=== PATIENT | female | born 1955 | race Caucasian/White ===

== ENCOUNTER 2020-02-02 11:59 | Emergency (ER) | payer OTHER, SELFPAY ==
--- NOTE | ~2020-02-02 | XR_ITS ---
EXAMINATION: XR tibia fibula LT 2V INDICATION: Left leg pain TECHNIQUE: Two views of the left leg are obtained on three radiographs. COMPARISON: None available FINDINGS: There is severe osteoarthritis of the knee. No acute osseous abnormality is identified. The re is mild soft tissue swelling of the distal leg. IMPRESSION: 1. No acute osseous abnormality. Reviewed, dictated and finalized at location A.
[2020-02-02 12:24] VITALS: BP 172/94; PULSE 77; RESP 16; TEMP 36.7; O2SAT 99
--- NOTE | 2020-02-02 12:25 | PC.NURSE ---
Pt went straight to xray from triage
--- NOTE | 2020-02-02 12:34 | ED.GENADULT ---
HPI - General Adult General Chief complaint: Extremity Injury, Lower Stated complaint: Fall Left leg pain below knee Time Seen by Provider: 02/02/20 12:34 Source: patient Mode of arrival: ambulatory Limitations: no limitations History of Present Illness HPI narrative: 64-year-old female patient presents to the [facility] with complaints of left leg pain. Patient states that close to 2 weeks ago she was getting ready to go and sit down on her couch when her 2 large dogs came and hit her in the leg with her head. Patient states that since then she has been having pain mostly below the left knee. Patient states that at first she was able to walk on it but now as time is gone by it is getting harder and harder to walk on with increasing pain. Patient states she is unable to take NSAIDs but has been taking Tylenol for her pain. Patient states she has been using crutches to get around. And states that she noticed that there is some swelling to the lower leg. Patient states she has been elevating it on a recliner. Patient states that she still is working and does try and elevate her on a small box when at work. Patient does have history of knee injury to that left knee when she was younger and states that she has had ligament issues with that knee in the past. Related Data Home Medications Medication Instructions Recorded Confirmed albuterol sulfate [Ventolin HFA] 2 puff INHALATION Q4-6H 02/02/20 02/02/20 budesonide-formoterol 2 puff INHALATION Q12H 02/02/20 02/02/20 fluticasone furoate-vilanterol 1 inh INHALATION DAILY 02/02/20 02/02/20 [Breo Ellipta] fluticasone propionate [Flonase 1 spray INTRANASAL DAILY 02/02/20 02/02/20 Allergy Relief] montelukast [Singulair] 10 mg PO DAILY 02/02/20 02/02/20 tiotropium bromide [Spiriva 2 puff INHALATION DAILY 02/02/20 02/02/20 Respimat] Allergies Allergy/AdvReac Type Severity Reaction Status Date / Time codeine AdvReac Unknown Nausea Verified 02/02/20 12:48 Review of Systems Review of Systems: Narrative: CONSTITUTIONAL: Denies fever, chills, or sweats. EYES: Denies visual changes, redness, or discharge. ENT: Denies rhinorrhea, congestion, sore throat, or otalgia. CARDIOVASCULAR: Denies chest pain, palpitations, or edema. RESPIRATORY: Denies cough or dyspnea. GASTROINTESTINAL: Denies abdominal pain, nausea, vomiting, or diarrhea. GENITOURINARY: Denies dysuria or hematuria. SKIN: Denies rash or itching. MUSCULOSKELETAL: Denies back pain, joint pain, or myalgia. Positive left tib-fib pain x2 weeks NEUROLOGIC: Denies headache, numbness, or weakness. PSYCHIATRIC: Denies anxiety or depression. [facility] Past Medical History Medical History Encounter for dual-energy x-ray absoptiometry review Hepatitis C antibody test negative Surgical History Surgical History H/O arthroscopy H/O colonoscopy Family History Family History Mother Diabetes mellitus Family history of malignant neoplasm of breast in first degree relative Family history of malignant neoplasm of thyroid Grandparent Diabetes mellitus Cerebrovascular accident Father Family history of elevated blood lipids Family history of coronary artery disease Family history of malignant neoplasm of urinary bladder Social History Social History Smoking status: Never smoker Alcohol intake: current Gender identity (if verbalized by the patient): Female Comments At the time of my signature I agree with nursing past medical history, surgical, social, and family history. There is no relevant family history pertinent to the presenting complaint. Exam Narrative: Exam Narrative: GENERAL: Well-appearing, well-nourished, and in no acute distress. HEAD: Normocephalic, atraumatic. EYES: PERRLA and EOMI. ENT:
== END 2020-02-02 13:25 | disposition home or self-care (01) ==
PROVIDERS: Emergency Provider Nurse Practitioner Family
DX: M79.605 Pain in left leg (principal)
CPT/HCPCS: 73590; 99213; G0463

== ENCOUNTER → 2020-05-09 14:48 | Outpatient (CLI) | payer OTHER, SELFPAY ==
--- NOTE | ~2020-05-09 | MM_ITS ---
EXAMINATION: MM screening [facility] BI w haley HISTORY: Screening mammogram TECHNIQUE: Craniocaudal and mediolateral oblique 3-D tomosynthesis images were obtained and synthetic 2-D images were generated. CAD analysis was submitted and interpreted. COMPARISON: 10/24/2018 diagnostic left digital mammogram and complete left breast ultrasound 10/13/2018, 10/11/2017, 09/21/2016 bilateral digital screening mammogram examinations BREAST PARENCHYMAL COMPOSITION: There are scattered areas of fibroglandular density. FINDINGS: Possible right breast masses including possible 8.5 mm mass in the mid inner right breast. Diagnostic right mammogram and right breast ultrasound examinations are recommended Otherwise there is no evidence of suspicious mass, calcification, or architectural distortion to sugg est malignancy in either breast. There has been no other suspicious interval change. IMPRESSION: 1. Possible right breast masses 2. Diagnostic right mammogram and right breast ultrasound examination are recommended BI-RADS Category 0: Incomplete: Needs additional imaging evaluation. Reviewed, dictated and finalized at location A. IMPRESSION: 1. Possible right breast masses 2. Diagnostic right mammogram and right breast ultrasound examination are recom mended BI-RADS Category 0: Incomplete: Needs additional imaging evaluation.
== END ==
PROVIDERS: Visit Provider Family Medicine
DX: Z12.31 Encounter for screening mammogram for malignant neoplasm of breast (principal); R92.8 Other abnormal and inconclusive findings on diagnostic imaging of breast
CPT/HCPCS: 77063; 77067

== ENCOUNTER → 2020-05-13 07:43 | Outpatient (CLI) | payer OTHER, SELFPAY ==
--- NOTE | ~2020-05-13 | MMUS_ITS ---
EXAMINATION: MM diagnostic mammo unilat RT, US breast RT complete HISTORY: Follow-up right breast asymmetries TECHNIQUE: Additional 3-D tomosynthesis images of the right breast were performed and synthetic 2-D i mages were generated. CAD analysis was submitted and interpreted. High resolution right breast ultras ound was performed. COMPARISON: 05/09/2020 BREAST PARENCHYMAL COMPOSITION: Breast composed of scattered areas of fibroglandular density FINDINGS: MAMMOGRAPHIC FINDINGS: There is a persistent focal asymmetry medially in the right breast at approximately the 3:00 position . There are no suspicious calcifications. ULTRASOUND: Right breast ultrasound: At 3:00, 1 cm from the nipple, there is a 1 cm intramammary lymph node corresponding to the mammograp hic abnormality. At 10:00, 1 cm from the nipple, there is a 5 mm cyst. IMPRESSION: 1. No evidence for malignancy in the right breast. Benign findings. 2. Routine yearly screening mammogram and regular clinical breast examination are recommended. BI-RADS Category 2: Benign finding(s). Reviewed, dictated and finalized at location A. IMPRESSION: 1. No evidence for malignancy in the right breast. Benign findings. 2. Routine yearly screening mammogram and regular clinical breast examination a re recommended. BI-RADS Category 2: Benign finding(s).
== END ==
PROVIDERS: Visit Provider Family Medicine
DX: R92.8 Other abnormal and inconclusive findings on diagnostic imaging of breast (principal)
CPT/HCPCS: 76641; 77065

== ENCOUNTER → 2020-08-05 18:16 | Outpatient (CLI) | payer OTHER, SELFPAY ==
--- NOTE | ~2020-08-05 | XR_ITS ---
XR knee RT 3V 08/05/2020 19:00 Indication: Right knee pain Procedure: 3 views right knee Comparison: No prior studies for comparison. Findings: There is moderate tricompartment osteoarthritis. No fracture, subluxation or dislocation. N o significant joint effusion. Impression: 1: Moderate osteoarthritis of the right knee. Reviewed, dictated and finalized at location A. Impression: 1: Moderate osteoarthritis of the right knee.
== END ==
PROVIDERS: PCP Family Medicine; Visit Provider Family Medicine
DX: M17.11 Unilateral primary osteoarthritis, right knee (principal)
CPT/HCPCS: 73562

== ENCOUNTER 2020-09-19 11:33 | Outpatient (NON) | payer OTHER, SELFPAY ==
[2020-09-19 23:21] LABS: SARS-CoV-2 RNA PCR Positive
== END 2020-09-19 11:34 ==
PROVIDERS: PCP Family Medicine; Visit Provider Family Medicine
DX: U07.1 COVID-19 (principal)
CPT/HCPCS: 87635; C9803; U0003

== ENCOUNTER → 2021-09-19 09:17 | Outpatient (CLI) | payer OTHER, SELFPAY ==
--- NOTE | ~2021-09-19 | MM_ITS ---
EXAMINATION: MM screening [facility] BI w haley HISTORY: Screening mammogram, family history of breast cancer in her mother. TECHNIQUE: Craniocaudal and mediolateral oblique 3-D tomosynthesis images were obtained and synthetic 2-D images were generated. CAD analysis was submitted and interpreted. COMPARISON: 05/13/2020, 05/09/2020, 10/24/2018, 10/13/2018 BREAST PARENCHYMAL COMPOSITION: There are scattered areas of fibroglandular density. FINDINGS: RIGHT BREAST: There is no evidence of suspicious mass, calcification, or architectural distortion to suggest malignancy. There has been no significant interval change. LEFT BREAST: A mass is present in the posterior third of the outer breast 7 cm from the nipple. IMPRESSION: 1. Left breast mass 2. Additional mammographic views and possible breast ultrasound are recommended. BI-RADS Category 0: Incomplete: Needs additional imaging evaluation. Reviewed, dictated and finalized at location A. PER MACHINE OPERATOR IMPRESSION: 1. Left breast mass 2. Additional mammographic views and possible breast ultrasound are recommended . BI-RADS Category 0: Incomplete: Needs additional imaging evaluation.
== END ==
PROVIDERS: PCP Family Medicine; Visit Provider Family Medicine
DX: Z12.31 Encounter for screening mammogram for malignant neoplasm of breast (principal); R92.8 Other abnormal and inconclusive findings on diagnostic imaging of breast
CPT/HCPCS: 77063; 77067

== ENCOUNTER → 2021-09-25 09:11 | Outpatient (CLI) | payer OTHER, SELFPAY ==
--- NOTE | ~2021-09-25 | MMUS_ITS ---
EXAMINATION: MM diagnostic [facility] LT w haley, US breast LT limited HISTORY: Follow-up left breast mass TECHNIQUE: Additional 3-D tomosynthesis images of the left breast were performed and synthetic 2-D im ages were generated. CAD analysis was submitted and interpreted. High resolution Limited left breast ultrasound was performed. COMPARISON: Comparison to multiple prior studies sequentially, with oldest reviewed study dated 11/2017. BREAST PARENCHYMAL COMPOSITION: Breast composed of scattered areas of fibroglandular density. FINDINGS: MAMMOGRAPHIC FINDINGS: There is a mass in the mid outer aspect of the left breast measuring 2.2 cm maximum dimension. There are no suspicious calcifications or architectural distortion. ULTRASOUND: Limited left breast ultrasound: There are multiple left breast cysts, largest corresponding to the ma mmographic finding measuring 2 cm maximum dimension. No suspicious masses to suggest malignancy. IMPRESSION: 1. No evidence for malignancy in the left breast. 2. Routine yearly screening mammogram and regular clinical breast examination are recommended. BI-RADS Category 2: Benign finding(s). Reviewed, dictated and finalized at location A. ER APPRAISER IMPRESSION: 1. No evidence for malignancy in the left breast. 2. Routine yearly screening mammogram and regular clinical breast examination a re recommended. BI-RADS Category 2: Benign finding(s).
== END ==
PROVIDERS: PCP Family Medicine; Visit Provider Family Medicine
DX: N63.20 Unspecified lump in the left breast, unspecified quadrant (principal); R92.8 Other abnormal and inconclusive findings on diagnostic imaging of breast
CPT/HCPCS: 76642; 77061; 77065; G0279

== ENCOUNTER → 2021-10-23 15:09 | Outpatient (CLI) | payer OTHER, SELFPAY ==
--- NOTE | ~2021-10-23 | DEXA_ITS ---
Bone Density Report Name: USAMA MEJIA Age: 66 Sex: Female Ethnicity: White Date of : 1955 Indication: postmenopausal; screening for osteoporosis; parental hip fracture; inflammatory bowel disease; history of glucocorticoids; asthma or emphysema; Referring Provider: Aniyah Bella Study: Bone densitometry was performed. Exam Date: October 23, 2021 Accession number: [id number] Bone Density: Region BMD T-score Z-score Classification AP Spine (L1-L4) 1.010 -0.3 1.4 Normal Femoral Neck (Left) 0.756 -0.8 0.6 Normal Total Hip (Left) 0.903 -0.3 0.9 Normal Femoral Neck (Right) 0.803 -0.4 1.1 Normal Total Hip (Right) 0.933 -0.1 1.1 Normal Total Hip Mean 0.918 -0.2 1.0 Normal World Health Organization criteria for BMD impression classify patients as: Normal (T-score at or above -1.0), Osteopenia (T-score between -1.0 and -2.5), or Osteoporosis (T-score at or below -2.5). 10-year Fracture Risk: FRAX not reported because: All T-scores for Spine Total, Hip Total, Femoral Neck at or above -1.0 Previous Exams: Region Exam Age BMD T-score BMD Change BMD Change Date g/cm2 vs Baseline vs Previous AP Spine(L1-L4) 10/23/2021 66 1.010 -0.3 -0.004 -0.004 09/21/2016 60 1.014 -0.3 Total Hip(Left) 10/23/2021 66 0.903 -0.3 -0.029 -0.029 09/21/2016 60 0.932 -0.1 Total Hip(Right) 10/23/2021 66 0.933 -0.1 -0.044 -0.044 09/21/2016 60 0.977 0.3 *Denotes significance at 95% confidence level, LSC for AP Spine = 0.022 g/cm2, LSC for Total Hip = 0.027 g/cm2 Clinical Information Provided by Patient: Parent has had a hip fracture Has taken Glucocorticoids Has used the following medications: Vitamin D Has the following medical conditions: Asthma or Emphysema, Inflammatory bowel diseases, ulcerative colitis Patient maximum height was 63 Menopause Age: 42 No regular weight bearing exercise Does not regularly consume dairy products Drinks caffeinated beverages Onset of menses at age 17 Number of children 2 Impression: The patient has normal bone mass. The patient has risk factors, including: parental hip fracture, history of glucocorticoid therapy. No significant bone loss was observed. Discussion: BONE DENSITY IS ABOVE THE MINIMUM DESIRABLE LEVEL AT ALL SKELETAL SITES TESTED. This patient?s bone mineral density is above the minimum desirable level (T-score -1.0 or better) at all sites measured. T
== END ==
PROVIDERS: PCP Family Medicine; Visit Provider Family Medicine
DX: Z78.0 Asymptomatic menopausal state (principal)
CPT/HCPCS: 77080

== ENCOUNTER 2021-11-18 08:20 | Outpatient (CLI) | payer OTHER, SELFPAY ==
--- NOTE | 2021-11-18 08:55 | ECG_ITS ---
Measurements Intervals [place] Rate: 72 P: 59 UT: 163 QRS: 16 QRSD: 78 T: 28 QT: 384 QTc: 420 Interpretive Statements SINUS RHYTHM CONSIDER INFERIOR INFARCT, AGE INDETERMINATE ABNORMAL ECG Electronically Signed On 11-18-2021 9:10:23 MUSIC STORE MANAGER by Travon Meza D.O.
[2021-11-18 09:37] LABS: Hematocrit 47.4 % (37.0-47.0); Hemoglobin 14.9 g/dL (12.0-15.0); Mean Corpuscular HGB Conc 31.4 g/dl (32-36); Mean Corpuscular Hemoglobin 29.6 pg (26-34); Mean Platelet Volume 9.9 fl (7.4-10.4); Platelet Count Result 237 k/mm3 (150-375); Red Blood Count 5.04 M/mm3 (4.2-5.4); Red Cell Distribution Width 13.2 % (11.5-14.5); White Blood Count 6.8 K/mm3 (4.5-10.0)
[2021-11-18 09:46] LABS: Alanine Aminotransferase 20 U/L (4-35); Albumin Level 4.4 g/dL (3.5-5.1); Alkaline Phosphatase 62 U/L (38-126); Anion Gap 11 mmol/L (8-16); Aspartate Amino Transferase 25 U/L (14-36); Bilirubin,Total 0.6 mg/dL (0.2-1.3); Blood Urea Nitrogen 19 mg/dL (7-17); Calcium 9.5 mg/dL (8.4-10.2); Carbon Dioxide 26 mmol/L (22-30); Chloride 105 mmol/L (98-107); Estimated Glomerular Filt Rate > 60; Glucose 119 mg/dL (65-110); Potassium 3.8 mmol/L (3.4-5.0); Sodium 142 mmol/L (137-145)
== END 2021-11-18 08:21 | disposition home or self-care (01) ==
PROVIDERS: PCP Family Medicine; Visit Provider Family Medicine
DX: Z01.818 Encounter for other preprocedural examination (principal); R94.31 Abnormal electrocardiogram [ECG] [EKG]
CPT/HCPCS: 36415; 80053; 85027; 93005

== ENCOUNTER 2021-11-20 08:03 | Outpatient (CLI) | payer OTHER, SELFPAY ==
[2021-11-20 10:17] LABS: Basophils Absolute Auto 0.1 K/mm3 (0.0-0.1); Basophils Percent Auto 0.7 % (0.2-1.2); Eosinophils Absolute Auto 0.2 K/mm3 (0-0.3); Eosinophils Percent Auto 2.5 % (0-4.4); Hematocrit 44.1 % (37.0-47.0); Hemoglobin 14.3 g/dL (12.0-15.0); Immature Granulocyte Absolute 0.02 K/mm3 (0.00-0.031); Immature Granulocyte Percent A 0.3 % (0-0.5); Lymphocytes Absolute Auto 1.75 K/mm3 (0.9-3.2); Lymphocytes Percent Auto 25.5 % (18.3-44.2); Mean Corpuscular HGB Conc 32.4 g/dl (32-36); Mean Corpuscular Hemoglobin 29.5 pg (26-34); Mean Corpuscular Volume 91.1 fl (80-100); Mean Platelet Volume 10.2 fl (7.4-10.4); Monocytes Absolute Auto 0.7 K/mm3 (0.1-0.6); Monocytes Percent Auto 10.2 % (2.6-8.5); Neutrophils Absolute Auto 4.2 K/mm3 (1.3-6.7); Neutrophils Percent Auto 60.8 % (45.5-73.1); Platelet Count Result 252 k/mm3 (150-375); Red Blood Count 4.84 M/mm3 (4.2-5.4); Red Cell Distribution Width 12.9 % (11.5-14.5); White Blood Count 6.9 K/mm3 (4.5-10.0)
[2021-11-20 10:54] LABS: Hemoglobin A1C 6.1 % (<5.7)
[2021-11-20 11:25] LABS: Urine Cotinine NEGATIVE
== END 2021-11-20 08:04 | disposition home or self-care (01) ==
LOC: ANHSURGERY 08:11
PROVIDERS: PCP Family Medicine; Visit Provider Orthopaedic Surgery
DX: M17.0 Bilateral primary osteoarthritis of knee (principal); Z01.818 Encounter for other preprocedural examination
CPT/HCPCS: 80307; 83036; 85025; 87070

== ENCOUNTER 2021-12-07 01:41 | Day surgery (SDC) | payer OTHER, SELFPAY ==
--- NOTE | 2021-11-20 08:11 | PC.NURSE ---
Addendum entered by Samina Morales RN 11/20/21 08:58: PT AWARE TO ARRIVE 12/07/21 FOR SURGERY AND NOT ON 11/27/21 Original Note: Report to the Outpatient Waiting Room, entrance under the [facility] located off [facility], at time _0600_ on date _11/27/21_. OR Time: _0730__. - You will be asked a series of questions to screen for COVID 19 for your protection. - A mask is required within the hospital. - No visitors are allowed at this time. Preoperative COVID Testing Requirements: NONE Patients may have clear liquids (water, carbonated beverages, clear teas, apple juice) until 3 hours prior to surgery (0430 AM) with a maximum of 20 ounces. - No food from midnight until time of surgery Take the following medications with a SIP of water the morning of surgery: _INHALER, NASAL SPRAY, TYLENOL IF NEEDED FOR PAIN__ Medications to discontinue per DR. DURBIN'S INSTRUCTIONS - _ASPIRIN 7 DAYS PRIOR TO SURGERY, LAST DOSE TO BE TAKEN ON 11/29/21_ Medications to discontinue per ANESTHESIA - _ALL VITAMINS AND SUPPLEMENTS 3 DAYS PRIOR TO SURGERY, LAST DOSE TO BE TAKEN ON12/03/21 Please no make-up, nail omani, hairspray, perfume, deodorant, or body powder the day of surgery. No jewelry (including any body piercings) or valuables the day of surgery, leave them at home. Please take a shower or bath the night before, or the morning of, surgery with an antibacterial soap. Wear comfortable, loose fitting clothing. - Jewelry must be removed prior to entering the operating room. Rings and piercings that are not removed may be cut off. - The hospital will not accept responsibility for valuables. - Please leave all valuables, including medications, at home the day of surgery. If you are going home after surgery, a licensed light truck driver must drive you home. - NO public transportation without another adult. - We recommend that an adult stay with you for 24 hours following discharge. - We also recommend that you do not drive, make important decision, drink alcoholic beverages, or take any drugs that were not prescribed by your health care provider for at least 24 hours after your discharge time. Follow any additional instructions given to you from DR. DURBIN. - TOTAL JOINT CLASS 11/25/21 [facility] @ 1000, USE MAIN ENTRANCE - LOWER LEVEL Instructions given to ____PT and asked if any additional questions and then verbalized understanding. Patient advised to call surgeon office or pre surgery nurse liaisonNUPUR [phone] if any additional questions.
[2021-11-20 08:18] VITALS: BP 142/78; PULSE 70; RESP 20; TEMP 37.1; O2SAT 98; BMI 39.2
--- NOTE | 2021-11-20 08:59 | PC.NURSE ---
PT BMI 39.2 - INFORMED PT OF BMI NEEDING TO BE BELOW 40 FOR TOTAL JOINT ARTHROPLASTY, DISCUSSED DIET/ACTIVITY AND INFORMED PT THAT SHE WILL BE WEIGHTED DAY OF SURGERY - UNDERSTANDING VOICED
--- NOTE | 2021-12-04 12:49 | PM.IMHP ---
H&P: HPI History of Present Illness Date/Time: 12/04/21 12:49 66-year-old female patient of Dr. Bella who presents today for right total knee arthroplasty and a cortisone injection into her left knee. She has been having pain in both her knees for years. She has severe medial compartment osteoarthritis in the right knee and severe lateral compartment arthritis in the left. At this point her right knee is bothering her more. She has had cortisone injections in both her knees in the past with minimal improvement. Last injection was over 5 months ago. Patient has reached a point she is having rather severe pain on a regular basis. It is keeping her from daily activities. She feels this point she would like proceed with total knee arthroplasty rather continue nonsurgical treatment. Chief Complaint: Bilateral knee DJD Review of Systems Review of Systems: All systems reviewed & are unremarkable except as noted in HPI and below PMFSH Past Medical History Medical History COVID-19 Encounter for dual-energy x-ray absoptiometry review Hepatitis C antibody test negative Left knee pain Pain in left knee Pain in right knee Surgical History Surgical History H/O arthroscopy (~2011) left shoulder H/O colonoscopy Family History Family History Mother Diabetes mellitus Family history of malignant neoplasm of breast in first degree relative Family history of malignant neoplasm of thyroid Grandparent Diabetes mellitus Cerebrovascular accident Father Family history of elevated blood lipids Family history of coronary artery disease Family history of malignant neoplasm of urinary bladder Social History Social History Smoking status: Never smoker Second hand tobacco smoke exposure: No Additional smoking assessment comments: PT DENIES ALL FORMS OF TOBACCO USE Alcohol intake: current Alcohol use details: STATES VERY RARELY - 10 DRINKS/YEAR MAYBE Substance use: never Substance use type: does not use Gender identity (if verbalized by the patient): Female Spiritual care concerns: No Meds Home Medications and Allergies Home Medications Medication Instructions Recorded Confirmed Type albuterol sulfate [Ventolin HFA] 2 puff INHALATION Q4-6H 02/02/20 11/27/21 History acetaminophen [Tylenol Extra 1,000 mg PO TID PRN 11/20/21 11/27/21 History Strength] aspirin 81 mg QAM 11/20/21 11/27/21 History fexofenadine [Shakira Allergy] 180 mg PO QAM 11/20/21 11/27/21 History fluticasone furoate-vilanterol 1 inh INHALATION QAM 11/20/21 11/27/21 History [Breo Ellipta] fluticasone propionate [Flonase 1 spray INTRANASAL QAM 11/20/21 11/27/21 History Allergy Relief] mesalamine [Lialda] 4.8 g PO QAM 11/20/21 11/27/21 History montelukast 10 mg QAM 11/20/21 11/27/21 History multivitamin [Hair,Nails and Skin 1 tablet PO QAM 11/20/21 11/27/21 History Vitamin] multivitamin [Multi-Vitamin] 1 tablet PO DAILY 11/20/21 11/27/21 History omeprazole 20 mg PO DAILY 11/20/21 11/27/21 History pravastatin 10 mg HS 11/20/21 11/27/21 History vitamin [id number] acid 4 tablet PO QAM 11/20/21 11/27/21 History zinc 50 mg PO QAM 11/20/21 11/27/21 History budesonide 3 mg 3 mg PO DAILY #60 ea 11/27/21 11/27/21 Rx capsule,delayed,extended release mesalamine 1,000 mg rectal 1 g RECTAL QHS PRN 28 Days #30 ea 11/27/21 11/27/21 Rx suppository Allergies Allergy/AdvReac Type Severity Reaction Status Date / Time codeine AdvReac Unknown Nausea Verified 11/27/21 10:47 Exam Narrative: 66-year-old female alert pleasant. She is 5 ft 3 and 222 lb. Her BMI is 39. her right knee range of motion is from 12-90 degrees. There is trace effusion right knee. Moderate medial joint line tenderness and lateral joint line tenderne
[2021-12-07] VITALS (16 sets, daily range): BP systolic 122–147; BP diastolic 67–85; PULSE 71–90; RESP 12–20; TEMP 36–36.9; O2SAT 95–100
--- NOTE | ~2021-12-07 | XR_ITS ---
EXAMINATION: XR knee RT 2V DATE: 12/07/2021 11:46 INDICATION: Right knee arthroplasty. Postop. TECHNIQUE: 2 views of right knee were obtained. COMPARISON: Right knee radiographs 08/05/2020 FINDINGS: There is a total right knee arthroplasty with patellar resurfacing in near-anatomic alignme nt. No fracture. There is gas in the knee joint and soft tissues, consistent with recent surgery. IMPRESSION: 1. Total right knee arthroplasty in near-anatomic alignment. Reviewed, dictated and finalized at location A. T CUTTING OPERATOR
[2021-12-07] MEDS: ACETAMINOPHEN 500 MG TABLET 1000 MG PO ×3 (06:34→21:00)
--- NOTE | 2021-12-07 06:48 | WPDANESEPPF ---
Anes - Initial Pre Proc Eval Procedure: Operation Date: 12/07/21 07:30 Proposed Procedures p Right Total Knee Arthroplasty, Cortisone Injection Left Knee - Lalo Rangel MD Date/Time: 12/07/21 06:48 Surgeon: Lalo Rangel MD Pre Op Diagnosis: OA right knee, OA left knee Patient Data Age: 66 Gender: F Height: 1.6 m Weight: 100.3 kg Last Vital Signs Temp 37.1 C 11/20/21 08:18 Pulse 70 11/20/21 08:18 Resp 20 11/20/21 08:18 BP 142/78 H 11/20/21 08:18 Pulse Ox 98 11/20/21 08:18 Allergies Allergy/AdvReac Type Severity Reaction Status Date / Time codeine AdvReac Unknown Nausea Verified 11/27/21 10:47 Home Medications Medication Instructions Recorded Confirmed Type albuterol sulfate [Ventolin HFA] 2 puff INHALATION Q4-6H 02/02/20 12/07/21 History acetaminophen [Tylenol Extra 1,000 mg PO TID PRN 11/20/21 12/07/21 History Strength] aspirin 81 mg QAM 11/20/21 12/07/21 History fexofenadine [Shakira Allergy] 180 mg PO QAM 11/20/21 12/07/21 History fluticasone furoate-vilanterol 1 inh INHALATION QAM 11/20/21 12/07/21 History [Breo Ellipta] fluticasone propionate [Flonase 1 spray INTRANASAL QAM 11/20/21 12/07/21 History Allergy Relief] mesalamine [Lialda] 4.8 g PO QAM 11/20/21 12/07/21 History montelukast 10 mg QAM 11/20/21 12/07/21 History multivitamin [Hair,Nails and Skin 1 tablet PO QAM 11/20/21 12/07/21 History Vitamin] multivitamin [Multi-Vitamin] 1 tablet PO DAILY 11/20/21 11/27/21 History omeprazole 20 mg PO DAILY 11/20/21 12/07/21 History pravastatin 10 mg HS 11/20/21 12/07/21 History vitamin [id number] acid 4 tablet PO QAM 11/20/21 12/07/21 History zinc 50 mg PO QAM 11/20/21 12/07/21 History budesonide 3 mg 3 mg PO DAILY #60 ea 11/27/21 12/07/21 Rx capsule,delayed,extended release mesalamine 1,000 mg rectal 1 g RECTAL QHS PRN 28 Days #30 ea 11/27/21 12/07/21 Rx suppository Patient hx anesthesia problems: none Family hx anesthesia problems: none Results Review: All pre-operative results and documents have been reviewed as part of the pre-operative evaluation. [facility] Past Medical History Medical History COVID-19 Encounter for dual-energy x-ray absoptiometry review Hepatitis C antibody test negative Left knee pain Pain in left knee Pain in right knee Surgical History Surgical History H/O arthroscopy (~2011) left shoulder H/O colonoscopy Family History Family History Mother Diabetes mellitus Family history of malignant neoplasm of breast in first degree relative Family history of malignant neoplasm of thyroid Grandparent Diabetes mellitus Cerebrovascular accident Father Family history of elevated blood lipids Family history of coronary artery disease Family history of malignant neoplasm of urinary bladder Social History Social History Smoking status: Never smoker Second hand tobacco smoke exposure: No Additional smoking assessment comments: PT DENIES ALL FORMS OF TOBACCO USE Alcohol intake: current Alcohol use details: STATES VERY RARELY - 10 DRINKS/YEAR MAYBE Substance use: never Substance use type: does not use Living arrangements: with family Gender identity (if verbalized by the patient): Female Spiritual care concerns: No Anes - Eval Final PreProcedure Day of Procedure 12/07/21 06:48 Patient weight: obese Heart: regular rate and rhythm Lungs: clear to auscultation and normal air movement Airway: Mallampati scale class II Neurological: alert and oriented Last oral intake: >/= 8 hours ASA classification: III Emergent: no Anesthetic plan: proceed Anesthesia type and monitoring: general ETT and standard monitoring Results Review: All pre-operative results and documents have been reviewed as part of th
[2021-12-07] MEDS: TRANEXAMIC ACID 1,000MG/ISO100 1,000 MG/100 ML BAG 200 MG IVPB (06:51)
[2021-12-07] MEDS: LACTATED RINGERS 1,000 ML 30 ML IV CONT ×3 (07:04→12:22)
--- NOTE | 2021-12-07 07:18 | WPDHPUPDATE1 ---
History and Physical Update Update Date/Time: 12/07/21 07:18 History and Physical has been reviewed, including an updated exam of the patient. There are NO changes in the patient's condition. Risks, benefits, and alternatives have been discussed and questions answered. Patient agrees to proceed with procedure.
[2021-12-07] MEDS: ceFAZolin 2 GM/D5W 50 ML 2 GM/50 ML BAG IVPB (07:41)
[2021-12-07] MEDS: GENTAMICIN BONE CEMENT REFOBACIN 1 EACH TOPICAL (08:15)
[2021-12-07] MEDS: ceFAZolin SODIUM 1 GM VIAL 3 GM IRRIGATION (08:16)
[2021-12-07] MEDS: TRANEXAMIC ACID 1,000 MG/10 ML AMPUL 1000 MG TOPICAL (10:13)
[2021-12-07] MEDS: ceFAZolin SODIUM 1 GM VIAL IV PUSH (10:35)
--- NOTE | 2021-12-07 11:30 | W.PM.PROC2 ---
Procedure Note - Detailed Date of Procedure 12/07/21 Pre-op Diagnosis OA right knee, OA left knee, obesity Post-op Diagnosis same Procedure Performed Cortisone injection left knee right total knee arthroplasty Surgeon Lalo Rangel MD [employer] Anesthesia general Description of Procedure Patient was brought to the operating room and general anesthesia was administered. She received 2 g of Ancef weight based vancomycin what and 1 g of tranexamic acid preoperatively. The left knee was prepped with ChloraPrep and 80 mg of Kenalog and 3 cc 1% lidocaine were injected into the left knee without difficulty. The right knee was prepped with DuraPrep draped covered with Ioban limb was exsanguinated tourniquet elevated to 300 mmHg. A 7 in longitudinal midline incision was used. She had a very low patella and therefore a standard parapatellar arthrotomy was performed. The articular cartilage on the patella was quite adequate for non resurfacing. Suprapatellar and infrapatellar fat pads were excised a quadriceps synovectomy carried out. A guide kari was inserted on the femoral canal after aspiration of canal contents used the 5 degree valgus cutting bushing 9 mm of bone removed the distal femur. She did have a 10 degree flexion contracture under anesthesia preoperatively and bent to about 100?. Next the tibial plateau was cut making a skim cut across the low points of the medial lateral tibial plateaus posteriorly. This was made perpendicular to the axis of the tibia. The bone quality in the lateral plateau anterior aspect the medial plateau was a little bit diminished. Miss Koul remnants were excised the PCL released. At 90? of flexion the medial side was a tight 8 mm the lateral side 10 mm. The femoral sizing guide was set at 3? of external rotation which did match Whitesides line and posterior referencing holes were placed. The size 57.5 cutting block vanguard was applied the femur was seemed to be the best with but this was going to notch. Size 60 was applied and the anterior cut was flush with the anterior cortex. Posterior and chamfer cuts were made. We were able to slide the 10 mm CR insert in place at 90? confirming alignment of the tibial cut. This was very tight though at 90. Extension was extremely tight. Therefore we elected to remove about a mm and half more of tibial plateau bone and the distal femur was recut removing additional 2 mm of bone and chamfer cuts revisit. The tibia was sized to a 63, the smallest tibial tray size. There was no way to fit the 67 trial without more than a mm of overhang laterally. This 63 was position at proper rotation and punched. As the bone quality was somewhat poor and bone size very small and with a BMI of 38.9, I felt it would be best to use an 80 mm stem extension and we punched for the 80 mm stem 10 mm diameter punch with full seating. We removed this and placed the trial of the same. The 10 mm insert was placed followed by the 60 femur. This had a mm of play both medially and laterally at 90? with a Gao elevator and had about 2 or 3 mm total of anterior drawer to had a very nice feel and was balanced medial to lateral also. We stayed still lacked about 3? of extension. I already performed a posterior capsule release. That was done the center of the posterior femur. Therefore, an additional mm of bone was removed from the distal femur using the 3 mm slot and chamfers revisited. The trial was applied and the small amount of residual posterior condylar bone was removed. We again trialed with the 10 insert this time the knee came out to full extension with a negative bounce with 2 mm lateral opening 1-2 mm medial opening in full extension and normal stability throughout range of motion. I assessed patellar tracking and I did not detect any catching on the edge of the intercondylar cut out the femur at this time but the patella baja was notable. Lug holes in the femur were drilled and step
[2021-12-07] MEDS: fentaNYL CITRATE INJ (*CRX) 100 MCG/2 ML VIAL 25 MCG IV PUSH ×8 (11:56→12:40)
[2021-12-07] MEDS: HYDROmorphone HCL INJ (*CRX) 1 MG/ML SYR 0.5 MG IV PUSH ×3 (12:49→13:13)
[2021-12-07] MEDS: SODIUM CHLORIDE 0.9% IV 1,000 ML 125 ML IV CONT (15:16)
[2021-12-07] MEDS: oxyCODONE HCL (*CRX) 5 MG TAB IR PO ×4 (15:18→22:02)
[2021-12-07] MEDS: SENNA/DOCUSATE SODIUM TABLET 2 TAB PO (16:28)
[2021-12-07] MEDS: ONDANSETRON INJ 4 MG/2 ML VIAL IV PUSH (18:23)
[2021-12-07] MEDS: diphenhydrAMINE HCl INJ 50 MG/ML VIAL 25 MG IV PUSH (19:43)
[2021-12-07] MEDS: MORPHINE SULFATE (*CRX) 2 MG/ML INJ IV PUSH (19:57)
[2021-12-07] MEDS: APIXABAN 2.5 MG TABLET PO (21:00)
[2021-12-07] MEDS: FAMOTIDINE 20 MG TABLET PO (21:00)
[2021-12-07] MEDS: PRAVASTATIN SODIUM 10 MG TABLET BY MOUTH (21:01)
[2021-12-08] MEDS: oxyCODONE HCL (*CRX) 5 MG TAB IR PO ×5 (00:46→09:36)
[2021-12-08] MEDS: ACETAMINOPHEN 500 MG TABLET 1000 MG PO ×2 (00:46→07:47)
[2021-12-08 04:14] VITALS: BP 127/70; PULSE 82; RESP 20; TEMP 35.9; O2SAT 93
[2021-12-08 05:24] LABS: Basophils Percent Auto 0.1 % (0.2-1.2); Hematocrit 37.3 % (37.0-47.0); Hemoglobin 12.1 g/dL (12.0-15.0); Immature Granulocyte Absolute 0.07 K/mm3 (0.00-0.031); Immature Granulocyte Percent A 0.5 % (0-0.5); Lymphocytes Absolute Auto 0.66 K/mm3 (0.9-3.2); Lymphocytes Percent Auto 5.2 % (18.3-44.2); Mean Corpuscular HGB Conc 32.4 g/dl (32-36); Mean Corpuscular Hemoglobin 29.3 pg (26-34); Mean Corpuscular Volume 90.3 fl (80-100); Mean Platelet Volume 10.2 fl (7.4-10.4); Monocytes Absolute Auto 1.2 K/mm3 (0.1-0.6); Monocytes Percent Auto 9.5 % (2.6-8.5); Neutrophils Absolute Auto 10.8 K/mm3 (1.3-6.7); Neutrophils Percent Auto 84.7 % (45.5-73.1); Platelet Count Result 187 k/mm3 (150-375); Red Blood Count 4.13 M/mm3 (4.2-5.4); Red Cell Distribution Width 13.1 % (11.5-14.5); White Blood Count 12.8 K/mm3 (4.5-10.0)
[2021-12-08 05:36] LABS: Anion Gap 7 mmol/L (8-16); Blood Urea Nitrogen 11 mg/dL (7-17); Calcium 8.8 mg/dL (8.4-10.2); Carbon Dioxide 26 mmol/L (22-30); Chloride 103 mmol/L (98-107); Estimated CRCL calculation 79 ml/min; Estimated Glomerular Filt Rate > 60; Glucose 150 mg/dL (65-110); Potassium 4.4 mmol/L (3.4-5.0); Sodium 136 mmol/L (137-145)
--- NOTE | 2021-12-08 06:36 | PM.PNORT ---
Subjective Subjective Date/Time Seen: 12/08/21 06:36 Postop day 1 patient is alert. She had quite a bit of pain yesterday afternoon and overnight. She did require 1 dose of morphine at this point pain is under control p.o. pain meds. She was up walking with therapy yesterday and walked multiple times to the restroom overall doing well with that. She is afebrile vital signs are stable. Dressing dry neurovascularly she is intact. Plan to discharge home later this today after she works with physical therapy. Objective Data Vital Signs Vital Signs: Vital Signs - 24 hr 12/07/21 07:00 12/07/21 11:46 12/07/21 12:00 Temperature 36.9 C 36.3 C L Pulse Rate 71 90 85 Respiratory Rate 16 12 12 Blood Pressure 131/78 147/78 H 132/78 Pulse Oximetry 99 99 95 12/07/21 12:15 12/07/21 12:30 12/07/21 12:45 Temperature Pulse Rate 81 79 76 Respiratory Rate 18 16 16 Blood Pressure 135/73 135/82 138/71 Pulse Oximetry 96 100 100 12/07/21 13:00 12/07/21 13:15 12/07/21 13:30 Temperature Pulse Rate 78 76 76 Respiratory Rate 16 16 16 Blood Pressure 133/71 122/68 129/67 Pulse Oximetry 100 100 95 12/07/21 13:45 12/07/21 14:05 12/07/21 14:20 Temperature 36.7 C 36.6 C 36.9 C Pulse Rate 83 83 74 Respiratory Rate 16 16 16 Blood Pressure 123/78 137/85 141/75 H Pulse Oximetry 98 98 99 12/07/21 14:50 12/07/21 15:50 12/07/21 19:30 Temperature 36.8 C 36.6 C 36.0 C L Pulse Rate 72 80 79 Respiratory Rate 14 16 20 Blood Pressure 134/82 124/76 144/78 H Pulse Oximetry 98 95 98 12/07/21 22:00 12/08/21 04:14 Temperature 36.0 C L 35.9 C L Pulse Rate 79 82 Respiratory Rate 20 20 Blood Pressure 144/78 H 127/70 Pulse Oximetry 98 93 Intake/Output Intake/Output: Intake & Output 12/05/21 12/06/21 12/07/21 12/08/21 23:59 23:59 23:59 23:59 Intake Total 1720 390 Output Total 1400 Balance 1720 -1010 Meds/Results Medications: Active Medications Generic Name Dose Route Start Last Admin Trade Name Freq PRN Reason Stop Dose Admin Acetaminophen 1,000 mg 12/07/21 13:48 12/08/21 00:46 Acetaminophen 500 Mg Tablet PO 1,000 mg Q6H ANA Administration Albuterol 2 puff 12/07/21 14:16 Albuterol Sulfate (*Sp) Aerosol 1 Puff INHALATION Q4-6H PRN Dyspnea Apixaban 2.5 mg 12/07/21 21:00 12/07/21 21:00 Apixaban 2.5 Mg Tablet PO 12/19/21 09:01 2.5 mg Q12HR ANA Administration Budesonide 3 mg 12/08/21 09:00 Budesonide 3 Mg Cap.Sr.24h PO DAILY ANA Cephalexin HCl 500 mg 12/08/21 10:00 Cephalexin 500 Mg Capsule PO Q6HR ANA Cyanocobalamin 10,000 mcg 12/08/21 09:00 Cyanocobalamin 1,000 Mcg Tablet PO QAM ANA Cyclobenzaprine HCl 10 mg 12/07/21 19:35 Cyclobenzaprine Hcl 10 Mg Tablet PO Q8H PRN Muscle Spasm Diphenhydramine HCl 25 mg 12/07/21 13:48 12/07/21 19:43 Diphenhydramine Hcl Inj 50 Mg/Ml Vial IV PUSH 25 mg Q6H PRN Administration Itching Famotidine 20 mg 12/07/21 21:00 12/07/21 21:00 Famotidine 20 Mg Tablet PO 20 mg Q12HR ANA Administration Fluticasone Propionate 1 spray 12/08/21 09:00 Fluticasone Propionate 0.05% Na Spr 16 Gm Btl (*Bkc) NASAL QAM ANA Folic Acid 1.6 mg 12/08/21 09:00 Folic Acid 0.4 Mg Tablet PO QAM ANA Vancomycin HCl 1,000 mg in 250 mls @ 250 mls/hr 12/07/21 19:00 12/08/21 06:18 Vancomycin 1,000 Mg/D5w 250 Ml IVPB 12/08/21 18:59 250 mls/hr Q12H ANA Administration Cefazolin Sodium 1 gm in 50 mls @ 100 mls/hr 12/07/21 15:00 12/08/21 05:50 Ancef 1 Gm/D5w 50 Ml Pm IVPB 12/08/21 07:29 100 mls/hr Q8H ANA Administration Loratadine 10 mg 12/08/21 09:00 Loratadine 10 Mg Tablet PO QAM ANA Magnesium Hydroxide 30 ml 12/07/21 13:48 Magnesium Hydroxide Susp 30 Ml Udc PO BID PRN Constipation Miscellaneous Information 1 each 12/07/21 14:25 Lialda Nonformulary. Can Patient Use From Home? XX 01/06/22 14:24 CLARIFY ANA Leroy
--- NOTE | 2021-12-08 06:44 | PM.DS ---
DS: Admitting Diagnosis Discharge Date 12/08 Admitting Diagnosis Bilateral knee DJD DS: Summary Hospital Course Hospital Course: Stable Time Spent with Patient Time attestation: Total time spent providing and/or coordinating discharge services: 66-year-old female who underwent right total knee arthroplasty with cortisone injection in the left knee on 12/07. Procedure any complications postoperatively she has been afebrile vital signs have been stable neurovascularly she is intact her dressing is dry, she has a Mepilex dressing over the knee. She had quite a bit of pain the night after surgery and into the later evening. She did require 1 dose of morphine along with her p.o. pain meds and the morning of postop day 1 her pain is well controlled. She did have some nausea after general anesthesia as well which has improved. She had no bouts of vomiting. She was up walking with physical therapy the day of surgery and getting around well. We will plan on discharging her home on 12/08. She is on 6 week course of Eliquis due to her history of factor 5 Leiden deficiency. We are not using Celebrex on her. She is on scheduled Tylenol oxycodone mg. She is also going home on 10 day course of Keflex due to her increased BMI. She also going home on Senokot and MiraLax. Patient was advised keep leg elevated at home to prevent swelling but do her exercises on a regular basis. She had a very stiff knee preoperatively and it is going to take more work on her part postoperatively. She has outpatient therapy starting on . She was advised any questions or concerns once he goes home she is to call the office otherwise we will see her at her appointment date. DS: Data Data Completed and Pending Labs on day of discharge: Labs from last 24 hours 12/08/21 12/08/21 12/07/21 04:58 04:58 06:33 WBC 12.8 H RBC 4.13 L Hgb 12.1 Hct 37.3 MCV 90.3 MCH 29.3 MCHC 32.4 RDW 13.1 Plt Count 187 MPV 10.2 Immature Gran % (Auto) 0.5 Neut % (Auto) 84.7 H Lymph % (Auto) 5.2 L [place] % (Auto) 9.5 H Eos % (Auto) 0.0 Baso % (Auto) 0.1 L Lymph # (Auto) 0.66 L [place] # (Auto) 1.2 H Eos # (Auto) 0.0 Baso # (Auto) 0.0 Abs Immat Gran (auto) 0.07 H Absolute Neuts (auto) 10.8 H Absolute Nucleated RBC 0.0 Nucleated RBC % 0.0 Sodium 136 L Potassium 4.4 Chloride 103 Carbon Dioxide 26 Anion Gap 7 L BUN 11 D Creatinine 0.70 Estim Creat Clear Calc 79 Estimated GFR > 60 Glucose 150 H Calcium 8.8 Blood Type A Negative Antibody Screen Negative Discharge Plan Discharge Patient Disposition: Home, Self-Care Discharge Instructions: LALO RANGEL M.D [facility] [address] [place] [address] POST-OPERATIVE DISCHARGE INSTRUCTIONS TOTAL KNEE ARTHROPLASTY 1. When resting, lie on back with leg elevated above hear to minimize swelling. Significant swelling could indicate a blood clot and if this occurs call the office (or go to the ER) to have a venous ultrasound. 2. Do exercise 5 times a day. 3. Do not sit with leg down except for meals. 4. Wound Care: Nursing will give additional dressings at discharge. Patient to change dressing at home 1 week from surgery, then maintain until seen in office. 5. May shower with dressing in place. . Patient Instructions: Apixaban (By mouth), Precautions after Total Joint Replacement Surgery (GEN), Knee Replacement (GEN) Follow-up/Referrals: Lalo Rangel MD [Physician] - Keep Reg. Scheduled Appt. Discharge Medications: New polyethylene glycol 3350 [Miralax] 17 gram Powder In Packet 17 g PO QAM Qty: 30 RF: 0 sennosides-docusate sodium [Senokot-S] 8.6-50 mg Tablet 2 tab PO BID Qty: 60 RF: 0 acetaminophen 500 mg Tablet 1,000 mg PO Q6H Qty: 90 RF: 0 cephalexin 500 mg Capsule 500 mg PO Q6HR Qty: 40 RF: 0
[2021-12-08] MEDS: SENNA/DOCUSATE SODIUM TABLET 2 TAB PO (08:19)
[2021-12-08] MEDS: LORATADINE 10 MG TABLET PO (08:20)
[2021-12-08] MEDS: APIXABAN 2.5 MG TABLET PO (08:20)
[2021-12-08] MEDS: MONTELUKAST SODIUM 10 MG TABLET PO (08:20)
[2021-12-08] MEDS: FLUTICASONE PROPIONATE 0.05% NA SPR 16 GM BTL (*BKC) 1 SPRAY NASAL (08:20)
[2021-12-08] MEDS: FAMOTIDINE 20 MG TABLET PO (08:20)
[2021-12-08] MEDS: BUDESONIDE 3 MG CAP.SR.24H PO (08:20)
[2021-12-08] MEDS: polyethylene glycoL 3350 17 GM POWD.PACK PO (08:22)
[2021-12-08] MEDS: FOLIC ACID 0.4 MG TABLET 1.6 MG PO (09:13)
[2021-12-08] MEDS: CYANOCOBALAMIN 1,000 MCG TABLET 10000 MCG PO (09:14)
--- NOTE | 2021-12-08 09:22 | WPDANESPN ---
Anes - Prog Note Post-Op Date/Time: 12/08/21 09:22 Cardiovascular status: normal Respiratory status: normal Airway patency: baseline Mental status: baseline Post-Op hydration status: normal Vital Signs: Last Vital Signs Temp 96.7 F L 12/08/21 04:14 Pulse 82 12/08/21 04:14 Resp 20 12/08/21 04:14 BP 127/70 12/08/21 04:14 Pulse Ox 93 12/08/21 04:14 Pain Score (VAS): 10/19 I/O: Intake & Output 12/07/21 12/08/21 12/08/21 23:59 07:59 15:59 Intake Total 720 440 360 Output Total 1400 Balance 720 -960 360 Laboratory Tests 12/08/21 04:58 12/08/21 04:58 12/08/21 12/08/21 04:58 04:58 WBC 12.8 H RBC 4.13 L Hgb 12.1 Hct 37.3 MCV 90.3 MCH 29.3 MCHC 32.4 RDW 13.1 Plt Count 187 MPV 10.2 Immature Gran % (Auto) 0.5 Neut % (Auto) 84.7 H Lymph % (Auto) 5.2 L [place] % (Auto) 9.5 H Eos % (Auto) 0.0 Baso % (Auto) 0.1 L Lymph # (Auto) 0.66 L [place] # (Auto) 1.2 H Eos # (Auto) 0.0 Baso # (Auto) 0.0 Abs Immat Gran (auto) 0.07 H Absolute Neuts (auto) 10.8 H Absolute Nucleated RBC 0.0 Nucleated RBC % 0.0 Sodium 136 L Potassium 4.4 Chloride 103 Carbon Dioxide 26 Anion Gap 7 L BUN 11 D Creatinine 0.70 Estim Creat Clear Calc 79 Estimated GFR > 60 Glucose 150 H Calcium 8.8 Post-procedural complaints: none Patient Feedback: Patient satisfied with anesthetic care.
[2021-12-08] MEDS: CYCLOBENZAPRINE HCL 10 MG TABLET PO (09:36)
[2021-12-08] MEDS: CEPHALEXIN 500 MG CAPSULE PO (11:26)
== END 2021-12-08 11:30 | disposition home or self-care (01) ==
LOC: ANHSURGERY 06:01 → ANH2MED 13:53
PROVIDERS: Physician Assistant Surgical; PCP Family Medicine; Visit Provider Orthopaedic Surgery
PROC: (CPT 27447; principal; 2021-12-07 07:30)
DX: M17.0 Bilateral primary osteoarthritis of knee (principal); D68.51 Activated protein C resistance; Z79.51 Long term (current) use of inhaled steroids; Z79.82 Long term (current) use of aspirin; E66.9 Obesity, unspecified; Z68.38 Body mass index [BMI] 38.0-38.9, adult
CPT/HCPCS: 27447; 20610; 36415; 73560; 80048; 80053; 80307; 83036; 85025; 85027; 86850; 86900; 86901; 87070; 93005; 94640; 97110; 97116; 97161; 97165; 97530; 97535; A9270; C1713; C1776; J0171; J0690; J1040; J1100; J1170; J1200; J2250; J2270; J2405; J2704; J2795; J3010; J3370; J7030; J7120

== ENCOUNTER 2022-02-16 | Day surgery (SDC) | payer OTHER, SELFPAY ==
[2022-01-28 12:55] VITALS: BMI 37.0
[2022-02-16 06:20] VITALS: BP 131/91; PULSE 82; RESP 18; TEMP 36.6; O2SAT 98; BMI 37.4
[2022-02-16] MEDS: LACTATED RINGERS 1,000 ML 150 ML IV CONT (06:43)
[2022-02-16] MEDS: AMPICILLIN 2 GM/NS 100 ML 2 GM/100 ML BAG IVPB (06:44)
--- NOTE | 2022-02-16 07:17 | WPDANESEPPF ---
Anes - Initial Pre Proc Eval Procedure: Operation Date: 02/16/22 07:30 Proposed Procedures p Colonoscopy - Charles Parikh MD Date/Time: 02/16/22 07:17 Surgeon: Charles Parikh MD Pre Op Diagnosis: ulcerative colitis Patient Data Age: 66 Gender: F Height: 1.6 m Weight: 95.8 kg Last Vital Signs Temp 97.8 F 02/16/22 06:20 Pulse 82 02/16/22 06:20 Resp 18 02/16/22 06:20 BP 131/91 H 02/16/22 06:20 Pulse Ox 98 02/16/22 06:20 Allergies Allergy/AdvReac Type Severity Reaction Status Date / Time codeine AdvReac Unknown Nausea Verified 02/16/22 06:19 Home Medications Medication Instructions Recorded Confirmed Type albuterol sulfate [Ventolin HFA] 2 puff INHALATION Q4-6H PRN 02/02/20 01/28/22 History Breo Ellipta 1 inh INHALATION QAM 11/20/21 02/16/22 History fexofenadine [Shakira Allergy] 180 mg PO BID 11/20/21 01/28/22 History fluticasone propionate [Flonase 1 spray INTRANASAL QAM 11/20/21 01/28/22 History Allergy Relief] mesalamine [Lialda] 4.8 g PO QAM 11/20/21 01/28/22 History montelukast 10 mg QAM 11/20/21 01/28/22 History multivitamin 1 tablet PO DAILY 11/20/21 01/28/22 History omeprazole 20 mg PO BID PRN 11/20/21 01/28/22 History pravastatin 10 mg HS 11/20/21 01/28/22 History acetaminophen 1,000 mg PO Q6H PRN 01/28/22 01/28/22 History budesonide 3 mg PO DAILY PRN 01/28/22 01/28/22 History aspirin 81 mg tablet,delayed 81 mg PO DAILY #90 tablet 02/08/22 Rx release Patient hx anesthesia problems: none Family hx anesthesia problems: none Results Review: All pre-operative results and documents have been reviewed as part of the pre-operative evaluation. [facility] Past Medical History Medical History COVID-19 Encounter for dual-energy x-ray absoptiometry review Hepatitis C antibody test negative Left knee pain Pain in left knee Pain in right knee Surgical History Surgical History H/O arthroscopy (~2011) left shoulder H/O colonoscopy Status post total right knee replacement (12/07/21) Family History Family History Mother Diabetes mellitus Family history of malignant neoplasm of breast in first degree relative Family history of malignant neoplasm of thyroid Grandparent Diabetes mellitus Cerebrovascular accident Father Family history of elevated blood lipids Family history of coronary artery disease Family history of malignant neoplasm of urinary bladder Social History Social History Smoking status: Never smoker Second hand tobacco smoke exposure: No Additional smoking assessment comments: PT DENIES ALL FORMS OF TOBACCO USE Alcohol intake: current Alcohol use details: Rarely Substance use: never Substance use type: does not use Living arrangements: with family Gender identity (if verbalized by the patient): Female Spiritual care concerns: No Anes - Eval Final PreProcedure Day of Procedure 02/16/22 07:17 Patient weight: obese Heart: regular rate and rhythm and murmur Lungs: clear to auscultation Airway: Mallampati scale class II Neurological: alert and oriented Last oral intake: >/= 8 hours ASA classification: III Emergent: no Anesthetic plan: proceed Anesthesia type and monitoring: general GIVS and standard monitoring Results Review: All pre-operative results and documents have been reviewed as part of the pre-operative evaluation. Informed Consent: The patient's anesthetic plan and its attendant risks and benefits were discussed with the patient/family/POA. Questions were solicited and answers provided to the satisfaction of the patient/family/POA.
--- NOTE | 2022-02-16 07:44 | WPDGICN ---
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 Previous colonoscopy revealed inflammation the distal 25cm of the colon. Currently appears to be in remission. Continue taking Lialda. Surveillance colonoscopy is advised now and every 3-5 years. Further recommendations will be given after endoscopy. GI Consult Note Consult date/time: 02/16/22 07:44 HPI: Aide Lopez is a 66 year old female Presents for screening colonoscopy. Patient has a history of ulcerative proctitis. This is typically been stable taking Lialda 2.4g p.o. daily. In October she did have a flare of proctitis with diarrhea and blood in her stools. Patient increase the dose of Lialda 4.8g p.o. daily and briefly took Entocort. She presents today for screening exam. She states that her colitis is subsequently improved. She no longer has diarrhea. She no longer has bleeding. Currently only taking the Lialda. She has discontinued Entocort. Colonoscopy was deferred as she recently had a right knee replacement. Patient's previous colonoscopy was many years ago. Plan is to have screening colonoscopy were defer the last several years because of the COVID pandemic. She presents today for screening colonoscopy. Her family history is noncontributory. Review of Systems Review of Systems: All systems reviewed & are unremarkable except as noted in HPI and below PMFSH Past Medical History Medical History COVID-19 Encounter for dual-energy x-ray absoptiometry review Hepatitis C antibody test negative Left knee pain Pain in left knee Pain in right knee Surgical History Surgical History H/O arthroscopy (~2011) left shoulder H/O colonoscopy Status post total right knee replacement (12/07/21) Family History Family History Mother Diabetes mellitus Family history of malignant neoplasm of breast in first degree relative Family history of malignant neoplasm of thyroid Grandparent Diabetes mellitus Cerebrovascular accident Father Family history of elevated blood lipids Family history of coronary artery disease Family history of malignant neoplasm of urinary bladder Social History Social History (Reviewed 01/21/22 @ 10:10 by Rosanna Liriano [facility]) Smoking status: Never smoker Second hand tobacco smoke exposure: No Additional smoking assessment comments: PT DENIES ALL FORMS OF TOBACCO USE Alcohol intake: current Alcohol use details: Rarely Substance use: never Substance use type: does not use Living arrangements: with family Gender identity (if verbalized by the patient): Female Spiritual care concerns: No Meds Home Medications and Allergies Home Medications Medication Instructions Recorded Confirmed Type albuterol sulfate [Ventolin HFA] 2 puff INHALATION Q4-6H PRN 02/02/20 01/28/22 History Breo Ellipta 1 inh INHALATION QAM 11/20/21 02/16/22 History fexofenadine [Shakira Allergy] 180 mg PO BID 11/20/21 01/28/22 History fluticasone propionate [Flonase 1 spray INTRANASAL QAM 11/20/21 01/28/22 History Allergy Relief] mesalamine [Lialda] 4.8 g PO QAM 11/20/21 01/28/22 History montelukast 10 mg QAM 11/20/21 01/28/22 History multivitamin 1 tablet PO DAILY 11/20/21 01/28/22 History omeprazole 20 mg PO BID PRN 11/20/21 01/28/22 History pravastatin 10 mg HS 11/20/21 01/28/22 History acetaminophen 1,000 mg PO Q6H PRN 01/28/22 01/28/22 History budesonide 3 mg PO DAILY PRN 01/28/22 01/28/22 History aspirin 81 mg tablet,delayed 81 mg PO DAILY #90 tablet 02/08/22 Rx release Allergies Allergy/AdvReac Type Severity Reaction Status Date / Time codeine AdvReac Unkn
[2022-02-16 07:47] VITALS: BP 111/52; PULSE 76; RESP 19; O2SAT 95
[2022-02-16 07:57] VITALS: BP 140/76; PULSE 70; RESP 19; O2SAT 98
[2022-02-16 08:07] VITALS: BP 150/77; PULSE 67; RESP 19; O2SAT 100
== END 2022-02-16 08:18 | disposition home or self-care (01) ==
PROVIDERS: PCP Family Medicine; Visit Provider Internal Medicine Gastroenterology
PROC: 0DJD8ZZ Inspection of Lower Intestinal Tract, Via Natural or Artificial Opening Endoscopic (ICD-10-PCS; CPT 45378; principal; 2022-02-16 07:30)
DX: Z12.11 Encounter for screening for malignant neoplasm of colon (principal); K51.90 Ulcerative colitis, unspecified, without complications; K57.30 Diverticulosis of large intestine without perforation or abscess without bleeding; Z86.16 Personal history of COVID-19; Z79.82 Long term (current) use of aspirin; Z79.51 Long term (current) use of inhaled steroids; E66.9 Obesity, unspecified; Z68.37 Body mass index [BMI] 37.0-37.9, adult
CPT/HCPCS: 45380; 88305; J0290; J2704; J7120

== ENCOUNTER 2022-08-19 09:29 | Outpatient (CLI) | payer OTHER, SELFPAY ==
[2022-08-19 10:57] LABS: Basophils Percent Auto 0.4 % (0.2-1.2); Eosinophils Absolute Auto 0.1 K/mm3 (0-0.3); Eosinophils Percent Auto 1.3 % (0-4.4); Hematocrit 46.6 % (37.0-47.0); Hemoglobin 14.8 g/dL (12.0-15.0); Immature Granulocyte Absolute 0.03 K/mm3 (0.00-0.031); Immature Granulocyte Percent A 0.4 % (0-0.5); Lymphocytes Absolute Auto 1.18 K/mm3 (0.9-3.2); Lymphocytes Percent Auto 16.5 % (18.3-44.2); Mean Corpuscular HGB Conc 31.8 g/dl (32-36); Mean Corpuscular Hemoglobin 29.1 pg (26-34); Mean Corpuscular Volume 91.6 fl (80-100); Mean Platelet Volume 9.3 fl (7.4-10.4); Monocytes Absolute Auto 0.7 K/mm3 (0.1-0.6); Monocytes Percent Auto 10.2 % (2.6-8.5); Neutrophils Absolute Auto 5.1 K/mm3 (1.3-6.7); Neutrophils Percent Auto 71.2 % (45.5-73.1); Platelet Count Result 228 k/mm3 (150-375); Red Blood Count 5.09 M/mm3 (4.2-5.4); Red Cell Distribution Width 12.9 % (11.5-14.5); White Blood Count 7.1 K/mm3 (4.5-10.0)
[2022-08-19 11:30] LABS: Albumin Level 4.8 g/dL (3.5-5.1); Anion Gap 10 mmol/L (8-16); Blood Urea Nitrogen 21 mg/dL (7-17); Calcium 9.1 mg/dL (8.4-10.2); Carbon Dioxide 27 mmol/L (22-30); Chloride 105 mmol/L (98-107); Estimated Glomerular Filt Rate > 60; Glucose 106 mg/dL (65-110); Potassium 4.1 mmol/L (3.4-5.0); Sodium 142 mmol/L (137-145)
[2022-08-19 12:24] LABS: Urine Cotinine NEGATIVE
== END 2022-08-19 09:30 | disposition home or self-care (01) ==
LOC: ANHSURGERY 09:32
PROVIDERS: PCP Family Medicine; Visit Provider Orthopaedic Surgery
DX: M17.12 Unilateral primary osteoarthritis, left knee (principal); Z01.818 Encounter for other preprocedural examination
CPT/HCPCS: 80048; 80307; 82040; 85025; 87081

== ENCOUNTER 2022-09-08 01:43 | Day surgery (SDC) | payer OTHER, SELFPAY ==
[2022-08-19 09:42] VITALS: BMI 36.8
--- NOTE | 2022-08-19 10:18 | PC.NURSE ---
Report to the Outpatient Waiting Room, entrance under the green pavilion located off [facility], at time ___1000____ on date __09/08/22 . Planned Procedure Time: ___1200 . Time changes happen often and if your time is changed the preop area will call you the afternoon before. - You and your visitor will be asked to self-screen and do not enter if you have any COVID symptoms. - We encourage only one visitor and NO visitors under age 16 are allowed at this time. Your visitor will receive communication by the phone number that is given day of service. - The patient visitor is requested to social distance or may leave the building when not with patient due to restrictions. - A mask is required within the hospital. Patients may have clear liquids (water, carbonated beverages, clear teas, apple juice) until 3 hours prior to surgery with a maximum of 20 ounces. - No food from midnight until time of surgery - Infants may have breast milk until 4 hours before surgery, formula 6 hours prior to surgery. - Children will be allowed to drink immediately following surgery. If applicable, please bring a bottle or sippy cup to assist with drinking. Juice, water, soda, and popsicles are readily available. For infants on formula, please bring formula the day of surgery. Pacifiers are allowed. Take the following medications with a SIP of water the morning of surgery: __BREO INHALER,PT STATES TAKES ASPIRIN MORNING OF SURGERY PER DR DURBIN Medications to discontinue per physician ___ALL VITAMINS AND SUPPLEMENTS 3 DAYS PRE OP Date to take last dose__09/04/22 Please no make-up, nail maori, hairspray, perfume, deodorant, or body powder the day of surgery. No jewelry (including any body piercings) or valuables the day of surgery, leave them at home. Please take a shower or bath the night before, or the morning of, surgery with an antibacterial soap. Wear comfortable, loose fitting clothing. Children are encouraged to wear pajamas. - Jewelry must be removed prior to entering the operating room. Rings and piercings that are not removed may be cut off. - The hospital will not accept responsibility for valuables. - Please leave all valuables, including medications, at home the day of surgery. If you are going home after surgery, a licensed package delivery driver must drive you home. - NO public transportation without another adult. - We recommend that an adult stay with you for 24 hours following discharge. - We also recommend that you do not drive, make important decision, drink alcoholic beverages, or take any drugs that were not prescribed by your health care provider for at least 24 hours after your discharge time. Follow any additional instructions given to you from your surgeon. If you or anyone in your household have experienced Covid symptoms in the past week, please notify your surgeon or the nurse liaison at the phone number below for possible testing. VERBAL AND WRITTEN instructions given to ___PATIENT and asked if any additional questions and then verbalized understanding. Patient advised to call surgeon office or pre surgery nurse liaison [phone] if any additional questions.
[2022-08-19 10:41] VITALS: BP 132/78; PULSE 72; RESP 18; TEMP 37; O2SAT 97
--- NOTE | 2022-09-06 11:41 | PM.IMHP ---
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 She underwent right total knee arthroplasty in November of this year. She had uneventful recovery. She is very happy with her results. Patient has severe lateral compartment osteoarthritis in the left knee. She also has significant loss of motion in the knee. She has been unable to take anti-inflammatories due to history of ulcerative colitis. At this point she feels she is ready to proceed with total knee arthroplasty on left Review of Systems Review of Systems: All systems reviewed & are unremarkable except as noted in HPI and below PMFSH Past Medical History Medical History COVID-19 Encounter for dual-energy x-ray absoptiometry review Hepatitis C antibody test negative Left knee pain Pain in left knee Pain in right knee Surgical History Surgical History H/O arthroscopy (~2011) left shoulder H/O colonoscopy Status post total right knee replacement (12/07/21) Family History Family History Mother Diabetes mellitus Family history of malignant neoplasm of breast in first degree relative Family history of malignant neoplasm of thyroid Grandparent Diabetes mellitus Cerebrovascular accident Father Family history of elevated blood lipids Family history of coronary artery disease Family history of malignant neoplasm of urinary bladder Social History Social History Smoking status: Never smoker Second hand tobacco smoke exposure: No Additional smoking assessment comments: DENIES ANY FORM OF TOBACCO USE Alcohol intake: current Alcohol use details: 4-5 DRINKS PER MONTH Substance use: never Substance use type: does not use Lack of Transportation: No Lack of Food: Never True Current Housing: I Have Housing Concerned About Future Housing: No Difficulty Paying Gas/Electric Bills: No Difficulty Paying for Meds: No Currently Unemployed: No Difficulty w/ Childcare or Family Care: No Gender identity (if verbalized by the patient): Female Spiritual care concerns: No Meds Home Medications and Allergies Home Medications Medication Instructions Recorded Confirmed Type albuterol sulfate 90 mcg/actuation 2 puff inhalation Q4-6H PRN 02/02/20 08/19/22 History aerosol inhaler (Ventolin HFA) Shortness Of Breath fexofenadine 180 mg tablet 180 mg PO BID 11/20/21 08/19/22 History (Shakira Allergy) fluticasone furoate 200 1 inh inhalation QAM 11/20/21 08/19/22 History mcg-vilanterol 25 mcg/dose inhalation powder (Breo Ellipta) montelukast 10 mg tablet 10 mg PO QAM 11/20/21 08/19/22 History multivitamin 1 tablet PO DAILY 11/20/21 08/19/22 History omeprazole 20 mg capsule,delayed 20 mg PO BID PRN Indigestion 11/20/21 08/19/22 History release acetaminophen 500 mg tablet 1,000 mg PO Q6H PRN Pain 01/28/22 08/19/22 History budesonide 3 mg 3 mg PO DAILY PRN other 01/28/22 08/19/22 History capsule,delayed,extended release fluticasone propionate 50 See Rx Instructions .Route 05/04/22 08/19/22 Rx mcg/actuation nasal .COMPLEX #16 grams spray,suspension mesalamine 1.2 gram tablet,delayed See Rx Instructions .Route 05/04/22 08/19/22 Rx release .COMPLEX #360 tabs aspirin 81 mg tablet,delayed See Rx Instructions .Route 07/05/22 08/19/22 Rx release .COMPLEX #90 tabs pravastatin 20 mg tablet 20 mg PO QHS #90 tabs 07/27/22 08/19/22 Rx cyanocobalamin (vitamin B-12) 1,000 mcg PO DAILY 08/19/22 08/19/22 History 1,000 mcg capsule vit C 250 mg-vit E 90 mg-zinc 40 1 tablet PO BID 08/19/22 08/19/22 History mg-copper 1 [id number] capsule (PreserVision AREDS-2)
--- NOTE | 2022-09-07 13:59 | WPDANESEPPF ---
Anes - Initial Pre Proc Eval Procedure: Operation Date: 09/08/22 12:00 Proposed Procedures p Left Total Knee Arthroplasty - Lalo Rangel MD Date/Time: 09/07/22 13:59 Surgeon: Lalo Rangel MD Pre Op Diagnosis: oa left knee Patient Data Age: 66 Gender: F Height: 1.6 m Weight: 94.5 kg Last Vital Signs Temp 37.0 C 08/19/22 10:41 Pulse 72 08/19/22 10:41 Resp 18 08/19/22 10:41 BP 132/78 08/19/22 10:41 Pulse Ox 97 08/19/22 10:41 O2 Del Method Room Air 08/19/22 10:41 Allergies Allergy/AdvReac Type Severity Reaction Status Date / Time codeine AdvReac Severe Nausea Verified 09/08/22 10:17 NSAIDS (Non-Steroidal AdvReac HAS COLITIS Verified 09/08/22 10:17 Anti-Inflamma Home Medications Medication Instructions Recorded Confirmed Type albuterol sulfate 90 mcg/actuation 2 puff inhalation Q4-6H PRN 02/02/20 09/08/22 History aerosol inhaler (Ventolin HFA) Shortness Of Breath fexofenadine 180 mg tablet 180 mg PO BID 11/20/21 09/08/22 History (Shakira Allergy) fluticasone furoate 200 1 inh inhalation QAM 11/20/21 09/08/22 History mcg-vilanterol 25 mcg/dose inhalation powder (Breo Ellipta) montelukast 10 mg tablet 10 mg PO QAM 11/20/21 08/19/22 History multivitamin 1 tablet PO DAILY 11/20/21 09/08/22 History omeprazole 20 mg capsule,delayed 20 mg PO BID PRN Indigestion 11/20/21 09/08/22 History release acetaminophen 500 mg tablet 1,000 mg PO Q6H PRN Pain 01/28/22 09/08/22 History budesonide 3 mg 3 mg PO DAILY PRN other 01/28/22 08/19/22 History capsule,delayed,extended release fluticasone propionate 50 See Rx Instructions .Route 05/04/22 09/08/22 Rx mcg/actuation nasal .COMPLEX #16 grams spray,suspension mesalamine 1.2 gram tablet,delayed See Rx Instructions .Route 05/04/22 09/08/22 Rx release .COMPLEX #360 tabs aspirin 81 mg tablet,delayed See Rx Instructions .Route 07/05/22 09/08/22 Rx release .COMPLEX #90 tabs pravastatin 20 mg tablet 20 mg PO QHS #90 tabs 07/27/22 09/08/22 Rx cyanocobalamin (vitamin B-12) 1,000 mcg PO DAILY 08/19/22 09/08/22 History 1,000 mcg capsule vit C 250 mg-vit E 90 mg-zinc 40 1 tablet PO BID 08/19/22 09/08/22 History mg-copper 1 [id number] capsule (PreserVision AREDS-2) Patient hx anesthesia problems: none Family hx anesthesia problems: none Results Review: All pre-operative results and documents have been reviewed as part of the pre-operative evaluation. FORMERLY [facility], [facility] Past Medical History Medical History (Updated 09/07/22 @ 14:00 by Barry Ervin MD) Asthma exacerbation Chronic GERD COVID-19 Encounter for dual-energy x-ray absoptiometry review Factor V Leiden Hepatitis C antibody test negative Left knee pain Metabolic syndrome Mixed hyperlipidemia Osteoarthritis Pain in left knee Pain in right knee PONV (postoperative nausea and vomiting) Ulcerative colitis, unspecified Surgical History Surgical History H/O arthroscopy (~2011) left shoulder H/O colonoscopy Status post total right knee replacement (12/07/21) Family History Family History Mother Diabetes mellitus Family history of malignant neoplasm of breast in first degree relative Family history of malignant neoplasm of thyroid Grandparent Diabetes mellitus Cerebrovascular accident Father Family history of elevated blood lipids Family history of coronary artery disease Family history of malignant neoplasm of urinary bladder Social History Social History Smoking status: Never smoker Second hand tobacco smoke exposure: No Additional smoking assessment comments: DENIES ANY FORM OF TOBACCO USE Alcohol intake: current Alcohol use details: 4-5 DRINKS PER MONTH Substance use: never Substance use type: does not use Lack of Transportation: No Lack of Food:
[2022-09-08] VITALS (15 sets, daily range): BP systolic 111–142; BP diastolic 55–96; PULSE 73–93; RESP 12–23; TEMP 36.1–36.8; O2SAT 92–99
--- NOTE | ~2022-09-08 | XR_ITS ---
XR knee LT 2V DATE: 09/08/2022 16:52 INDICATION: Left total knee replacement TECHNIQUE: AP and crosstable lateral views of left COMPARISON: None FINDINGS: Status post total knee arthroplasty with patellar resurfacing. There is subcutaneous and intra-articular gas which is no unusual shortly postoperatively. No fracture or dislocation, periosteal reaction or bone destruction. IMPRESSION: Status post left total knee arthroplasty Reviewed, dictated and finalized at location [facility]. [facility]
[2022-09-08] MEDS: ACETAMINOPHEN 500 MG TABLET 1000 MG PO ×2 (10:40→19:42)
[2022-09-08] MEDS: LACTATED RINGERS 1,000 ML 30 ML IV CONT ×2 (10:48→16:40)
[2022-09-08] MEDS: TRANEXAMIC ACID 1,000MG/ISO100 1,000 MG/100 ML BAG 200 MG IVPB (11:20)
[2022-09-08] MEDS: SCOPOLAMINE 1.5 MG PATCH TRANSDERM (11:21)
--- NOTE | 2022-09-08 11:24 | WPDHPUPDATE1 ---
History and Physical Update Update Date/Time: 09/08/22 11:24 History and Physical has been reviewed, including an updated exam of the patient. There are NO changes in the patient's condition. Risks, benefits, and alternatives have been discussed and questions answered. Patient agrees to proceed with procedure.
[2022-09-08] MEDS: ceFAZolin 2 GM/D5W 50 ML 2 GM/50 ML BAG IVPB (12:01)
[2022-09-08] MEDS: ceFAZolin SODIUM 1 GM VIAL 3 GM (13:35)
--- NOTE | 2022-09-08 14:42 | SUR.OPER ---
TXA was started in pre-op at 1120. Upon arriving into OR, OR staff discussed TXA order with Dr. Rangel. Due to patient having Factor V, IV TXA order was discontinued. IV TXA infusion stopped at [address] Rangel. Gopiay for TXA injection on sterile field, given at the end of the case by Dr. Rangel.
[2022-09-08] MEDS: ceFAZolin SODIUM 1 GM VIAL 2 GM IV PUSH (15:30)
[2022-09-08] MEDS: TRANEXAMIC ACID 1,000 MG/10 ML AMPUL 1500 MG TOPICAL (15:42)
--- NOTE | 2022-09-08 16:39 | W.PM.PROC2 ---
Procedure Note - Detailed Date of Procedure 09/08/22 Pre-op Diagnosis oa left knee Post-op Diagnosis Same Procedure Performed Left total knee arthroplasty Surgeon Lalo Rangel MD Home Worker Abi Méndez Anesthesia General Description of Procedure Patient was brought to the operating room and general anesthesia was administered. There was extra difficulty with the procedure adding at least an hour to the operation due to her obesity with BMI of 37.4 and pronounced stiffness. SHe received 2 g of Ancef and weight based vancomycin preoperatively. The left knee was prepped draped usual fashion. A was exsanguinated tourniquet elevated to 300 mmHg. A 7 in longitudinal incision was made a standard parapatellar arthrotomy utilized. She only had 100? of flexion preoperatively sore quadriceps was quite stiff. Infrapatellar and suprapatellar fat pads were excised a quadriceps synovectomy carried out. Osteophytes removed around the patella. It was significantly arthritic. It measured 21.5 mm in thickness and was cut to 15.5 mm. Bone quality was good. Protector cap applied. A guide kari was inserted down the femoral canal after aspiration of canal contents using the 5 degree valgus cutting bushing 10 mm of bone removed the distal femur. This removed about 5 mm from lateral side. Next the tibial plateau was cut. We made a cut perpendicular to the axis of the tibia. This 1st cut did not quite get us down to the base of the sclerotic low point of the wear spot of the posterior lateral plateau. An additional 2 mm was cut. This brought us down to flush with the low point of the posterolateral tibial plateau area of sclerosis and wear. Meniscal remnants were excised. She had a massive bone posteromedially. Because of her valgus deformity I took great care to avoid compromising the posteromedial capsule and with a curette we were able to gradually tease this mass out. It was a large bony mass. There is still some ossification within the posterior fibers of the medial collateral ligament which I left alone as this would have compromised the ligament itself. The knee was quite tight laterally. This was particularly true in flexion which is somewhat unusual. I removed osteophytes from around the lateral femoral condyle. These were fairly extensive. In extension the knee was a fair amount tighter laterally than medially also. We performed a pie crusting maneuver of the IT band and lateral capsule and also released the posterolateral capsule from the posterior lateral margin of the tibial plateau to balance his knee better in extension and this helped a bit. The flexion gaps now measured a very tight 10 mm laterally and 8 mm medially at 90? of flexion. The femoral sizing guide was applied set at 3? of external rotation and this matched Whitesides line exactly. The size 60 femoral cutting block was applied and this gave us a nice cut relative to the anterior cortex and the remaining cuts were made and the size 60 overhung about a mm laterally 1 flush with the medial side I felt on sizing of will require either an excessive notch or a significant amount of additional flexion. At 90? it was too tight to accept the 10 CR trial and therefore we removed additional 2 mm of bone from the tibial plateau. Once this was done the tibia was punched for a size 63 which fit line to line anteromedial to to the lateral side at proper rotation. On trialing the 10 gave acceptable stability at 90? but lacked 10? of extension with no play laterally couple mm of play medially. We therefore removed an additional 2 mm of bone from the distal femur and we had previously done a conservative release of posterior femoral osteophytes as they were extensive and at this time we did a careful removal of posterior femoral osteophytes to flush with the proximal margin the posterior condylar portions of the trial. We also performed a central capsular release and a lateral posterior capsular releas
[2022-09-08] MEDS: fentaNYL CITRATE INJ (*CRX) 100 MCG/2 ML VIAL 25 MCG IV PUSH ×8 (16:57→17:42)
--- NOTE | 2022-09-08 17:18 | SUR.PHASEI ---
Patient moans and says it hurts and says 10. Answers no other questions. I feel I should delay furthur pain medication until mental status improves.
--- NOTE | 2022-09-08 17:32 | SUR.PHASEI ---
called and discussed patient's behavior and pain with Dr Adhikari. Will continue treating pain.
[2022-09-08] MEDS: HYDROmorphone HCL INJ (*CRX) 1 MG/ML SYR 0.5 MG IV PUSH ×2 (17:54→18:25)
[2022-09-08] MEDS: KETOROLAC 15 MG/ML VIAL (*BKC) IV PUSH ×2 (18:21→23:34)
--- NOTE | 2022-09-08 18:50 | ADMGEN ---
This patient, Aide Lopez, was admitted to Medical Room 249-01. Patient/family oriented to hospital policies and general routines including ID bracelet, bed and alarms, visiting hours, pain management, procedures, bathroom and other care routines, personal items, smoking policy, room service/diet, and visiting hours. Information on how to activate the Rapid Response Team has been discussed. Patient/Family are encouraged to report perceived risks to care and to ask questions if they do not understand what they are told or what they should do.
[2022-09-08] MEDS: oxyCODONE HCL (*CRX) 5 MG TAB IR PO ×2 (19:41→22:46)
[2022-09-08] MEDS: SENNA/DOCUSATE SODIUM TABLET 2 TAB PO (19:42)
[2022-09-08] MEDS: LORATADINE 10 MG TABLET PO (19:42)
[2022-09-08] MEDS: FLUTICASONE PROPIONATE 0.05% NA SPR 16 GM BTL (*BKC) 1 SPRAY NASAL (19:51)
[2022-09-08] MEDS: OPTI-GEN TAB 1 TABLET PO (19:51)
[2022-09-08] MEDS: SODIUM CHLORIDE 0.9% IV 1,000 ML 125 ML IV CONT (19:58)
[2022-09-08] MEDS: PRAVASTATIN SODIUM 20 MG TABLET PO (22:45)
--- NOTE | 2022-09-08 23:57 | PC.NURSE ---
Asked pt for clarification on medications mesalamine and budesonide EC. Currently pt does not take budesonide EC and has not taken it since October. Budesonide is only used PRN for flare ups. Budesonide will be DC while in hospital. Pt stated mesalamine dose is 1.5 gm 2 tablets daily. Pt will ask if someone can bring the medication from home if not pt stated medication can be held while in the hospital.
[2022-09-09] MEDS: ACETAMINOPHEN 500 MG TABLET 1000 MG PO ×3 (02:06→12:50)
[2022-09-09] MEDS: oxyCODONE HCL (*CRX) 5 MG TAB IR PO ×4 (02:06→14:36)
[2022-09-09 03:40] VITALS: BP 110/64; PULSE 68; RESP 17; TEMP 36.5; O2SAT 99
[2022-09-09 06:02] LABS: Basophils Percent Auto 0.2 % (0.2-1.2); Hematocrit 35.5 % (37.0-47.0); Hemoglobin 11.6 g/dL (12.0-15.0); Immature Granulocyte Absolute 0.08 K/mm3 (0.00-0.031); Immature Granulocyte Percent A 0.6 % (0-0.5); Lymphocytes Absolute Auto 0.73 K/mm3 (0.9-3.2); Lymphocytes Percent Auto 5.5 % (18.3-44.2); Mean Corpuscular HGB Conc 32.7 g/dl (32-36); Mean Corpuscular Hemoglobin 28.9 pg (26-34); Mean Corpuscular Volume 88.3 fl (80-100); Mean Platelet Volume 9.7 fl (7.4-10.4); Monocytes Absolute Auto 1.2 K/mm3 (0.1-0.6); Monocytes Percent Auto 8.8 % (2.6-8.5); Neutrophils Absolute Auto 11.2 K/mm3 (1.3-6.7); Neutrophils Percent Auto 84.9 % (45.5-73.1); Platelet Count Result 184 k/mm3 (150-375); Red Blood Count 4.02 M/mm3 (4.2-5.4); White Blood Count 13.2 K/mm3 (4.5-10.0)
[2022-09-09 06:26] LABS: Anion Gap 6 mmol/L (8-16); Blood Urea Nitrogen 14 mg/dL (7-17); Carbon Dioxide 27 mmol/L (22-30); Chloride 105 mmol/L (98-107); Estimated CRCL calculation 77 ml/min; Estimated Glomerular Filt Rate > 60; Glucose 112 mg/dL (65-110); Potassium 4.5 mmol/L (3.4-5.0); Sodium 138 mmol/L (137-145)
--- NOTE | 2022-09-09 07:12 | PM.PNORT ---
Subjective Subjective Date/Time Seen: 09/09/22 07:12Postop day 1 patient is alert. Afebrile vital signs are stable. Morning labs are noted. Patient's dressing is dry. Neurovascularly she is intact. She was having quite a bit of pain overnight but at this point pain is well controlled. She had several doses Toradol. She is taking 2 oxycodone 5 mg every 4 hours and at this point her pain is very tolerable. She has not been up out of bed yet. She got up to the floor late yesterday. She will work with Physical therapy this morning as well as this afternoon if she continues to do well we will plan on discharging her home this afternoon. Objective Data Vital Signs Vital Signs: Vital Signs - 24 hr 09/08/22 11:04 09/08/22 16:40 09/08/22 16:55 Temperature 36.7 C 36.6 C Pulse Rate 73 93 85 Respiratory Rate 16 15 12 Blood Pressure 139/79 142/69 H 142/75 H Pulse Oximetry 98 96 98 Oxygen Delivery Room Air Simple Face Mask Simple Face Mask Oxygen Flow Rate 6 6 09/08/22 17:10 09/08/22 17:25 09/08/22 17:40 Temperature Pulse Rate 90 84 82 Respiratory Rate 16 12 13 Blood Pressure 134/73 134/76 128/79 Pulse Oximetry 94 97 97 Oxygen Delivery Nasal Cannula Nasal Cannula Nasal Cannula Oxygen Flow Rate 2 6 2 09/08/22 17:54 09/08/22 18:09 09/08/22 18:25 Temperature Pulse Rate 87 82 86 Respiratory Rate 23 H 18 20 Blood Pressure 142/63 H 131/79 132/78 Pulse Oximetry 98 99 93 Oxygen Delivery Nasal Cannula Nasal Cannula Nasal Cannula Oxygen Flow Rate 2 2 2 09/08/22 18:40 09/08/22 19:00 09/08/22 19:00 Temperature 36.8 C Pulse Rate 79 83 Respiratory Rate 20 20 20 Blood Pressure 128/70 141/75 H Pulse Oximetry 99 98 98 Oxygen Delivery Nasal Cannula Nasal Cannula Oxygen Flow Rate 2 2 09/08/22 19:30 09/08/22 19:53 09/08/22 20:11 Temperature 36.3 C L 36.1 C L 36.4 C Pulse Rate 86 78 77 Respiratory Rate 20 18 18 Blood Pressure 131/80 131/72 116/96 H Pulse Oximetry 98 99 92 Oxygen Delivery Oxygen Flow Rate 09/08/22 20:00 09/08/22 23:14 09/09/22 03:40 Temperature 36.3 C L 36.5 C Pulse Rate 81 68 Respiratory Rate 18 17 Blood Pressure 111/55 L 110/64 Pulse Oximetry 97 99 Oxygen Delivery Room Air Oxygen Flow Rate Intake/Output Intake/Output: Intake & Output 09/06/22 09/07/22 09/08/22 09/09/22 23:59 23:59 23:59 23:59 Intake Total 810 540 Output Total 300 Balance 810 240 Meds/Results Medications: Active Medications Generic Name Dose Route Start Last Admin Trade Name Freq PRN Reason Stop Dose Admin Acetaminophen 1,000 mg 09/08/22 19:00 09/09/22 06:00 Acetaminophen 500 Mg Tablet PO 1,000 mg Q6H ANA Administration Albuterol 2 puff 09/08/22 18:45 Albuterol Sulfate (*Sp) Aerosol 1 Puff INHALATION Q4HRT PRN Shortness Of Breath Apixaban 2.5 mg 09/09/22 09:00 Apixaban 2.5 Mg Tablet PO 10/21/22 08:59 Q12HR ANA Aspirin 81 mg 09/09/22 09:00 Aspirin 81 Mg Enteric Tablet PO DAILY ANA Budesonide 3 mg 09/08/22 18:45 Budesonide 3 Mg Cap.Sr.24h PO DAILY PRN other Cephalexin HCl 500 mg 09/09/22 18:00 Cephalexin 500 Mg Capsule PO Q6HR ANA Cyanocobalamin 1,000 mcg 09/09/22 09:00 Cyanocobalamin 1,000 Mcg Tablet PO DAILY ANA Fluticasone Propionate 1 spray 09/08/22 18:45 09/08/22 19:51 Fluticasone Propionate 0.05% Na Spr 16 Gm Btl (*Bkc) NASAL 1 spray DAILY ANA Administration Cefazolin Sodium 1 gm in 50 mls @ 100 mls/hr 09/08/22 23:00 09/09/22 06:30 Ancef 1 Gm/D5w 50 Ml Pm IVPB 09/09/22 15:29 Infused Q8H ANA Infusion Vancomycin HCl 1,000 mg in 250 mls @ 250 mls/hr 09/08/22 22:00 09/09/22 00:31 Vancomycin 1,000 Mg/D5w 250 Ml IVPB 09/09/22 10:59 Infused Q12H ANA Infusion Loratadine 10 mg 09/08/22 18:45 09/08/22 19:42 Loratadine 10 Mg Tablet PO 10 mg DAILY ANA Administration Miscellaneous Information 1 each 09/08/22 00:01 09/09/22 00:10
--- NOTE | 2022-09-09 07:17 | PM.DS ---
DS: Admitting Diagnosis Discharge Date 09/09 Admitting Diagnosis left knee DJD DS: Discharge Diagnosis Discharge Diagnosis (1) Total knee replacement status: Code(s): Z96.659 - Presence of unspecified artificial knee joint Status: Acute DS: Summary Hospital Course Hospital Course: 66-year-old female who underwent left total knee arthroplasty on 09/08. Underwent the procedure without complications. Postoperatively she has been afebrile vital signs are stable. She had quite a bit of pain the night of surgery. She received several doses of Toradol. She is on oxycodone 5 mg she is taking 2 tablets every 4 hours. She is also on schedule Tylenol. We are not using Celebrex on her due to history of ulcerative colitis. She is on Eliquis for DVT prophylaxis. She will be on this for 6 weeks due to her factor 5 Leiden deficiency. She remains on a baby aspirin as well. Postop day 1 patient was alert. Pain was well controlled. Dressing was dry. Neurovascularly she is intact. Patient had a right knee replaced earlier this year she is aware that she needs to keep leg elevated at home but also do her exercises on a regular basis. She is not to be sitting in the chair for extended periods of time or standing or walking for extended periods of time as this will cause swelling in the leg. This was all reviewed with her today as well. She will also go home on Keflex due to her increased BMI. She is also going home on Senokot MiraLax for constipation. She has outpatient therapy starting next Tuesday. Patient was advised any questions or concerns she is to call the office otherwise will see her at her appointed date Time Spent with Patient Time attestation: Total time spent providing and/or coordinating discharge services: DS: Data Data Completed and Pending Labs on day of discharge: Labs from last 24 hours 09/09/22 09/09/22 09/08/22 05:24 05:24 10:31 WBC 13.2 H RBC 4.02 L Hgb 11.6 L D Hct 35.5 L MCV 88.3 MCH 28.9 MCHC 32.7 RDW 13.0 Plt Count 184 MPV 9.7 Immature Gran % (Auto) 0.6 H Neut % (Auto) 84.9 H Lymph % (Auto) 5.5 L [place] % (Auto) 8.8 H Eos % (Auto) 0.0 Baso % (Auto) 0.2 Lymph # (Auto) 0.73 L [place] # (Auto) 1.2 H Eos # (Auto) 0.0 Baso # (Auto) 0.0 Abs Immat Gran (auto) 0.08 H Absolute Neuts (auto) 11.2 H Absolute Nucleated RBC 0.0 Nucleated RBC % 0.0 Sodium 138 Potassium 4.5 Chloride 105 Carbon Dioxide 27 Anion Gap 6 L BUN 14 D Creatinine 0.70 Estim Creat Clear Calc 77 Estimated GFR > 60 Glucose 112 H Calcium 8.0 L Blood Type A Negative Antibody Screen Negative Discharge Plan Discharge Patient Disposition: Home, Self-Care Discharge Instructions: MICHELL DURBIN M.D [facility], [place] [id number] [place] [id number] POST-OPERATIVE DISCHARGE INSTRUCTIONS TOTAL KNEE ARTHROPLASTY 1. When resting, lie on back with leg elevated above heart to minimize swelling. Significant swelling could indicate a blood clot and if this occurs call the office (or go to the ER) to have a venous ultrasound. 2. Do exercise 5 times a day. 3. Do not sit with leg down except for meals. 4. Wound Care: Nursing will give additional dressings at discharge. Patient to change dressing at home 1 week from surgery, then maintain until seen in office. 5. May shower with dressing in place. 6. Follow weight bearing status instructions. IMPORTANT: Remember not to sit in the chair for more than 30 minutes at a time. As a rule, during the first 14 days after surgery, only sit in the chair to work on the chair knee bending stretch exercise, for meals or for use of the restroom. Sitting in the chair promotes significant swelling in the knee and leg which will make the knee stiff and more painful and which simulates having a blood clot in the vein
[2022-09-09 08:36] VITALS: BP 98/68; PULSE 66; RESP 17; TEMP 36.4; O2SAT 97
[2022-09-09] MEDS: SENNA/DOCUSATE SODIUM TABLET 2 TAB PO (09:45)
[2022-09-09] MEDS: polyethylene glycoL 3350 17 GM POWD.PACK PO (09:45)
[2022-09-09] MEDS: MULTIVITAMINS THERAPEUTIC TAB (*BKC) 1 TABLET PO (09:45)
[2022-09-09] MEDS: MONTELUKAST SODIUM 10 MG TABLET PO (09:46)
[2022-09-09] MEDS: OPTI-GEN TAB 1 TABLET PO (09:46)
[2022-09-09] MEDS: CYANOCOBALAMIN 1,000 MCG TABLET 1000 MCG PO (09:47)
[2022-09-09] MEDS: ASPIRIN 81 MG ENTERIC TABLET PO (09:47)
[2022-09-09] MEDS: APIXABAN 2.5 MG TABLET PO (09:47)
[2022-09-09] MEDS: LORATADINE 10 MG TABLET PO (09:48)
[2022-09-09] MEDS: FLUTICASONE PROPIONATE 0.05% NA SPR 16 GM BTL (*BKC) 1 SPRAY NASAL (09:48)
[2022-09-09 09:51] VITALS: O2SAT 95
[2022-09-09] MEDS: FLUTICASONE/SALMETEROL 230-21 MCG INHALER 1 PUFF 2 PUFF INHALATION (11:33)
[2022-09-09 11:38] VITALS: PULSE 67; O2SAT 98
[2022-09-09 12:30] VITALS: BP 135/61; PULSE 78; RESP 18; TEMP 36.7; O2SAT 99
--- NOTE | 2022-09-09 12:59 | PC.NURSE ---
On 09/09/22, the student, [Zohreh Escalera], provided care and completed [facility] documentation on this patient. I have reviewed the student's documentation and agree with the findings.
--- NOTE | 2022-09-09 13:52 | P.PNAN_ITS ---
Anes - Prog Note Post-Op Date/Time: 09/09/22 13:52 Vital Signs: Last Vital Signs Temp 36.7 C 09/09/22 12:30 Pulse 78 09/09/22 12:30 Resp 18 09/09/22 12:30 BP 135/61 09/09/22 12:30 Pulse Ox 99 09/09/22 12:30 O2 Del Method Room Air 09/09/22 11:38 O2 Flow Rate 2 09/08/22 19:00 Pain Score (VAS): 6 I/O: Intake & Output 09/08/22 09/09/22 09/09/22 23:59 07:59 15:59 Intake Total 750 540 360 Output Total 300 Balance 750 240 360 Laboratory Tests 09/09/22 05:24 09/09/22 05:24 09/09/22 09/09/22 05:24 05:24 WBC 13.2 H RBC 4.02 L Hgb 11.6 L D Hct 35.5 L MCV 88.3 MCH 28.9 MCHC 32.7 RDW 13.0 Plt Count 184 MPV 9.7 Immature Gran % (Auto) 0.6 H Neut % (Auto) 84.9 H Lymph % (Auto) 5.5 L [place] % (Auto) 8.8 H Eos % (Auto) 0.0 Baso % (Auto) 0.2 Lymph # (Auto) 0.73 L [place] # (Auto) 1.2 H Eos # (Auto) 0.0 Baso # (Auto) 0.0 Abs Immat Gran (auto) 0.08 H Absolute Neuts (auto) 11.2 H Absolute Nucleated RBC 0.0 Nucleated RBC % 0.0 Sodium 138 Potassium 4.5 Chloride 105 Carbon Dioxide 27 Anion Gap 6 L BUN 14 D Creatinine 0.70 Estim Creat Clear Calc 77 Estimated GFR > 60 Glucose 112 H Calcium 8.0 L Patient Feedback: Patient satisfied with anesthetic care.
[2022-09-09] MEDS: CYCLOBENZAPRINE HCL 10 MG TABLET PO (14:00)
[2022-09-09 14:44] VITALS: BP 142/60
== END 2022-09-09 15:28 | disposition home or self-care (01) ==
LOC: ANHSURGERY 11:23 → ANH2MED 18:48
PROVIDERS: PCP Family Medicine; Visit Provider Orthopaedic Surgery
PROC: (CPT 27447; principal; 2022-09-08 12:00)
DX: M17.12 Unilateral primary osteoarthritis, left knee (principal); J45.909 Unspecified asthma, uncomplicated; K21.9 Gastro-esophageal reflux disease without esophagitis; D68.51 Activated protein C resistance; E88.81 Metabolic syndrome and other insulin resistance; E78.5 Hyperlipidemia, unspecified; K51.90 Ulcerative colitis, unspecified, without complications; F10.90 Alcohol use, unspecified, uncomplicated; Z96.651 Presence of right artificial knee joint; M25.561 Pain in right knee; G89.18 Other acute postprocedural pain; E66.9 Obesity, unspecified; Z68.37 Body mass index [BMI] 37.0-37.9, adult; Z86.16 Personal history of COVID-19; Z79.51 Long term (current) use of inhaled steroids; Z79.1 Long term (current) use of non-steroidal anti-inflammatories (NSAID); Z79.899 Other long term (current) drug therapy; Z84.89 Family history of other specified conditions
CPT/HCPCS: 27447; 36415; 73560; 80048; 80307; 82040; 85025; 86850; 86900; 86901; 87081; 94640; 97110; 97116; 97161; 97165; 97535; A9270; C1713; C1776; J0171; J0330; J0690; J1100; J1170; J1885; J2250; J2405; J2704; J2710; J2795; J3010; J3370; J7030; J7120

== ENCOUNTER 2022-11-18 09:13 | Outpatient (CLI) | payer OTHER, SELFPAY ==
[2022-11-18 18:59] LABS: Alanine Aminotransferase 19 U/L (6-35); Albumin Level 4.4 g/dL (3.5-5.1); Alkaline Phosphatase 69 U/L (38-126); Anion Gap 5 mmol/L (8-16); Aspartate Amino Transferase 26 U/L (14-36); Bilirubin,Total 0.6 mg/dL (0.2-1.3); Blood Urea Nitrogen 18 mg/dL (7-17); Carbon Dioxide 29 mmol/L (22-30); Chloride 106 mmol/L (98-107); Cholesterol 169 mg/dL (0-200); Estimated Glomerular Filt Rate > 60; Glucose 106 mg/dL (65-110); HDL Direct 34 mg/dL; Potassium 3.9 mmol/L (3.4-5.0); Sodium 140 mmol/L (137-145); Triglycerides 149 mg/dL (<150)
[2022-11-18 19:10] LABS: LDL Cholesterol Direct 97 mg/dL
[2022-11-18 20:15] LABS: Hemoglobin A1C 5.7 % (<5.7)
== END 2022-11-18 09:14 | disposition home or self-care (01) ==
LOC: ANHGOSHLAB 09:23
PROVIDERS: PCP Family Medicine; Visit Provider Family Medicine
DX: E78.2 Mixed hyperlipidemia (principal); E88.81 Metabolic syndrome and other insulin resistance; Z79.899 Other long term (current) drug therapy
CPT/HCPCS: 36415; 80053; 80061; 83036

== ENCOUNTER 2023-04-01 08:52 | Outpatient (CLI) | payer OTHER, SELFPAY ==
[2023-04-01 18:30] LABS: Alanine Aminotransferase 20 U/L (6-35); Alkaline Phosphatase 67 U/L (38-126); Anion Gap 8 mmol/L (8-16); Aspartate Amino Transferase 28 U/L (14-36); Bilirubin,Total 0.6 mg/dL (0.2-1.3); Blood Urea Nitrogen 16 mg/dL (7-17); Calcium 8.7 mg/dL (8.4-10.2); Carbon Dioxide 28 mmol/L (22-30); Chloride 105 mmol/L (98-107); Cholesterol 161 mg/dL (0-200); Estimated Glomerular Filt Rate > 60; Glucose 99 mg/dL (65-110); HDL Direct 36 mg/dL; Potassium 4.2 mmol/L (3.4-5.0); Sodium 141 mmol/L (137-145); Triglycerides 120 mg/dL (<150)
[2023-04-01 18:41] LABS: LDL Cholesterol Direct 103 mg/dL
== END 2023-04-01 08:53 | disposition home or self-care (01) ==
LOC: ANHGOSHLAB 08:54
PROVIDERS: PCP Family Medicine; Visit Provider Family Medicine
DX: E78.2 Mixed hyperlipidemia (principal); R73.03 Prediabetes
CPT/HCPCS: 36415; 80053; 80061; 83036

== ENCOUNTER 2023-04-04 14:30 | Outpatient (CLI) | payer OTHER, SELFPAY ==
--- NOTE | ~2023-04-04 | MM_ITS ---
EXAMINATION: MM screening kaylee BI w haley HISTORY: Screening mammogram TECHNIQUE: Craniocaudal and mediolateral oblique 3-D tomosynthesis images were obtained and synthetic 2-D images were generated. CAD analysis was submitted and interpreted. COMPARISON: 09/25/2021 diagnostic left mammogram and limited left breast ultrasound examination 09/19/2021 bilateral screening mammogram BREAST PARENCHYMAL COMPOSITION: FINDINGS: Right breast: Circumscribed 5 mm low-density opacity with very well-defined halo sign in the subareol ar area, consistent with benign process, likely cyst. No suspicious mass or architectural distortion, malignant calcification, skin thickening or retractio n or significant new or developing density is noted. Occasional benign calcifications. Left breast: Circumscribed mass in the posterior outer mid left breast has diminished from previously 20 mm to 16 mm maximal dimension. The margins are circumscribed and there is halo sign, compatible w ith benign lesion, likely cyst. This corresponds to a sonographically documented cyst on 09/25/2021 l eft breast ultrasound examination. There is no evidence of suspicious mass, calcification, or archite ctural distortion to suggest malignancy in the left breast. There has been no suspicious interval radha nge. IMPRESSION: 1. Benign findings. No mammographic evidence of malignancy. 2. Recommend routine screening mammography in one year. BI-RADS Category 2: Benign finding(s). Reviewed, dictated and finalized at location A.
== END 2023-04-04 14:31 | disposition home or self-care (01) ==
LOC: ANHIMG 14:31
PROVIDERS: PCP Family Medicine; Visit Provider Family Medicine
DX: Z12.31 Encounter for screening mammogram for malignant neoplasm of breast (principal)
CPT/HCPCS: 77063; 77067

== ENCOUNTER 2023-09-02 07:53 | Outpatient (CLI) | payer OTHER, SELFPAY ==
[2023-09-02 18:16] LABS: Hematocrit 45.9 % (37.0-47.0); Hemoglobin 14.2 g/dL (12.0-15.0); Mean Corpuscular HGB Conc 30.9 g/dl (32-36); Mean Corpuscular Volume 93.7 fl (80-100); Mean Platelet Volume 9.8 fl (7.4-10.4); Platelet Count Result 328 k/mm3 (150-375); White Blood Count 8.9 K/mm3 (4.5-10.0)
[2023-09-02 18:20] LABS: Alanine Aminotransferase 24 U/L (6-35); Albumin Level 3.9 g/dL (3.5-5.1); Alkaline Phosphatase 57 U/L (38-126); Anion Gap 8 mmol/L (8-16); Aspartate Amino Transferase 30 U/L (14-36); Bilirubin,Total 0.6 mg/dL (0.2-1.3); Blood Urea Nitrogen 25 mg/dL (7-17); Calcium 8.7 mg/dL (8.4-10.2); Carbon Dioxide 28 mmol/L (22-30); Chloride 104 mmol/L (98-107); Cholesterol 183 mg/dL (0-200); Estimated Glomerular Filt Rate 56; Glucose 103 mg/dL (65-110); HDL Direct 41 mg/dL; Potassium 3.9 mmol/L (3.4-5.0); Sodium 140 mmol/L (137-145); Triglycerides 184 mg/dL (<150)
[2023-09-02 18:30] LABS: LDL Cholesterol Direct 102 mg/dL
[2023-09-02 18:50] LABS: Hemoglobin A1C 6.2 % (<5.7)
== END 2023-09-02 07:54 | disposition home or self-care (01) ==
PROVIDERS: PCP Family Medicine; Visit Provider Family Medicine
DX: E78.2 Mixed hyperlipidemia (principal); Z79.899 Other long term (current) drug therapy; E88.810 Metabolic syndrome
CPT/HCPCS: 36415; 80053; 80061; 83036; 84443; 85027

== ENCOUNTER 2023-09-27 15:28 | Emergency (ER) | payer OTHER, SELFPAY ==
[2023-09-27] VITALS (11 sets, daily range): BP systolic 116–154; BP diastolic 60–86; PULSE 65–86; RESP 15–20; TEMP 36.3; O2SAT 97–99
--- NOTE | 2023-09-27 16:02 | ED.NAVMDI ---
HPI - Nausea/Vomiting/Diarrhea General Chief complaint: Nausea/Vomiting/Diarrhea Stated complaint: diarrhea, nausea,fever Time Seen by Provider: 09/27/23 16:01 Source: patient Mode of arrival: ambulatory Limitations: no limitations History of Present Illness HPI Narrative: Aide is a 67-year-old female patient presenting to the ER today with complaints of nausea, diarrhea, and fever x5 days. She reports contacted her PCP and they recommend she come in for IVF and labs. Related Data Home Medications Medication Instructions Recorded Confirmed fexofenadine 180 mg tablet 180 mg PO BID 11/20/21 09/27/23 ([facility] Allergy) multivitamin 1 tablet PO DAILY 11/20/21 09/27/23 omeprazole 20 mg capsule,delayed 20 mg PO BID PRN Indigestion 11/20/21 09/27/23 release cyanocobalamin (vitamin B-12) 1,000 mcg PO DAILY 08/19/22 09/27/23 1,000 mcg capsule vit C 250 mg-vit E 90 mg-zinc 40 1 tablet PO BID 08/19/22 09/27/23 mg-copper 1 ox-dfomkm-uhjisc capsule (PreserVision AREDS-2) Allergies Allergy/AdvReac Type Severity Reaction Status Date / Time codeine AdvReac Severe Nausea Verified 09/27/23 17:34 NSAIDS (Non-Steroidal AdvReac HAS COLITIS Verified 09/27/23 17:34 Anti-Inflamma Review of Systems Review of Systems: Pertinent positives per HPI. Patient denies any rash, headache, visual changes, dizziness, cough, shortness of breath, chest pain, palpitations, constipation, abdominal pain, or any urinary issues. [facility] Past Medical History Medical History Asthma exacerbation Chronic GERD COVID-19 Encounter for dual-energy x-ray absoptiometry review Factor V Leiden Hepatitis C antibody test negative Left knee pain Metabolic syndrome Mixed hyperlipidemia Osteoarthritis Pain in left knee Pain in right knee PONV (postoperative nausea and vomiting) Ulcerative colitis, unspecified Surgical History Surgical History H/O arthroscopy (~2011) left shoulder H/O colonoscopy Status post total right knee replacement (12/07/21) Family History Family History Mother Diabetes mellitus Family history of malignant neoplasm of breast in first degree relative Family history of malignant neoplasm of thyroid Grandparent Diabetes mellitus Cerebrovascular accident Father Family history of elevated blood lipids Family history of coronary artery disease Family history of malignant neoplasm of urinary bladder Social History Social History Social History: Caffeine-coffee Smoking status: Former smoker Second hand tobacco smoke exposure: No Additional smoking assessment comments: DENIES ANY FORM OF TOBACCO USE Alcohol intake: current Alcohol use details: 4-5 DRINKS PER MONTH Substance use: never Substance use type: does not use Lack of Transportation: No Lack of Food: Never True Current Housing: I Have Housing Concerned About Future Housing: No Difficulty Paying Gas/Electric Bills: No Difficulty Paying for Meds: No Currently Unemployed: No Education: High School Diploma/GED Difficulty w/ Childcare or Family Care: No Living arrangements: with family Gender identity (if verbalized by the patient): Female Spiritual care concerns: No Comments At the time of my signature, I reviewed and agree with the nursing past medical, surgical, social, and family history. There is no relevant family history pertinent to the patient complaint. Exam Narrative: General: Well-developed, well nourished, in no apparent distress Head: Normocephalic, atraumatic Eyes: Pupils equally round and reactive to light bilaterally, EOM intact, sclera and conjunctive clear, no discharge, lids normal Ears: TMs intact and clear, ear canals clear, no drainage, grossly hearing n
[2023-09-27] MEDS: ONDANSETRON INJ 4 MG/2 ML VIAL IV PUSH ×2 (16:35→18:00)
[2023-09-27 16:45] LABS: Hematocrit 48.2 % (37.0-47.0); Hemoglobin 16.1 g/dL (12.0-15.0); Mean Corpuscular HGB Conc 33.4 g/dl (32-36); Mean Corpuscular Hemoglobin 29.3 pg (26-34); Mean Corpuscular Volume 87.6 fl (80-100); Mean Platelet Volume 9.5 fl (7.4-10.4); Platelet Count Result 245 k/mm3 (150-375); Red Cell Distribution Width 12.4 % (11.5-14.5); White Blood Count 3.8 K/mm3 (4.5-10.0)
[2023-09-27 16:54] LABS: Potassium 3.4 mmol/L (3.4-5.0)
[2023-09-27 16:56] LABS: Alanine Aminotransferase 31 U/L (6-35); Albumin Level 4.2 g/dL (3.5-5.1); Alkaline Phosphatase 68 U/L (38-126); Anion Gap 12 mmol/L (8-16); Aspartate Amino Transferase 41 U/L (14-36); Bilirubin,Total 0.5 mg/dL (0.2-1.3); Blood Urea Nitrogen 15 mg/dL (7-17); Calcium 8.9 mg/dL (8.4-10.2); Carbon Dioxide 20 mmol/L (22-30); Chloride 104 mmol/L (98-107); Estimated CRCL calculation 60 ml/min; Estimated Glomerular Filt Rate > 60; Glucose 132 mg/dL (65-110); Lipase 254 U/L (23-300); Sodium 136 mmol/L (137-145)
[2023-09-27 17:14] LABS: Band Neutrophils Percent 5 % (0-6); Eosinophils Absolute Manual 0.03 K/mm3 (0.02-0.5); Eosinophils Percent Manual 1 % (0-4); Lymphocytes Absolute Manual 0.68 K/mm3 (1.1-4.5); Monocytes Absolute Manual 0.87 K/mm3 (0.1-0.90); Monocytes Percent Manual 23 % (3-9); Neutrophils Percent Manual 53 % (46-73); Platelet Estimate Adequate (Adequate); Schistocytes None Seen (NORMAL); Total Cells Counted 100
[2023-09-27] MEDS: FAMOTIDINE 20 MG/2 ML VIAL IV PUSH (18:00)
[2023-09-27] MEDS: SODIUM CHLORIDE 0.9% IV 1,000 ML 999 ML IV CONT (18:00)
--- NOTE | 2023-09-27 18:15 | ED.NAVMDI ---
HPI - Nausea/Vomiting/Diarrhea General Chief complaint: Nausea/Vomiting/Diarrhea Stated complaint: diarrhea, nausea,fever Time Seen by Provider: 09/27/23 16:01 Source: patient Mode of arrival: ambulatory Limitations: no limitations History of Present Illness HPI Narrative: Patient was sent to the emergency department by her primary care provider for further evaluation. She had nausea and diarrhea 2 days ago. This has improved. However she still feels generally weak. Diarrhea has improved but is still present. Patient denies fevers and chills. Denies abdominal pain. Denies urinary symptoms. Her states that she was dry heaving and only vomiting liquid Related Data Home Medications Medication Instructions Recorded Confirmed fexofenadine 180 mg tablet 180 mg PO BID 11/20/21 09/27/23 (Shakira Allergy) multivitamin 1 tablet PO DAILY 11/20/21 09/27/23 omeprazole 20 mg capsule,delayed 20 mg PO BID PRN Indigestion 11/20/21 09/27/23 release cyanocobalamin (vitamin B-12) 1,000 mcg PO DAILY 08/19/22 09/27/23 1,000 mcg capsule vit C 250 mg-vit E 90 mg-zinc 40 1 tablet PO BID 08/19/22 09/27/23 mg-copper 1 [id number]-[id number] capsule (PreserVision AREDS-2) Allergies Allergy/AdvReac Type Severity Reaction Status Date / Time codeine AdvReac Severe Nausea Verified 09/27/23 17:34 NSAIDS (Non-Steroidal AdvReac HAS COLITIS Verified 09/27/23 17:34 Anti-Inflamma Review of Systems Review of Systems: negative except for what is documented in the HPI [facility] Past Medical History Medical History Asthma exacerbation Chronic GERD COVID-19 Encounter for dual-energy x-ray absoptiometry review Factor V Leiden Hepatitis C antibody test negative Left knee pain Metabolic syndrome Mixed hyperlipidemia Osteoarthritis Pain in left knee Pain in right knee PONV (postoperative nausea and vomiting) Ulcerative colitis, unspecified Surgical History Surgical History H/O arthroscopy (~2011) left shoulder H/O colonoscopy Status post total right knee replacement (12/07/21) Family History Family History Mother Diabetes mellitus Family history of malignant neoplasm of breast in first degree relative Family history of malignant neoplasm of thyroid Grandparent Diabetes mellitus Cerebrovascular accident Father Family history of elevated blood lipids Family history of coronary artery disease Family history of malignant neoplasm of urinary bladder Social History Social History Social History: Caffeine-coffee Smoking status: Former smoker Second hand tobacco smoke exposure: No Additional smoking assessment comments: DENIES ANY FORM OF TOBACCO USE Alcohol intake: current Alcohol use details: 4-5 DRINKS PER MONTH Substance use: never Substance use type: does not use Lack of Transportation: No Lack of Food: Never True Current Housing: I Have Housing Concerned About Future Housing: No Difficulty Paying Gas/Electric Bills: No Difficulty Paying for Meds: No Currently Unemployed: No Education: High School Diploma/GED Difficulty w/ Childcare or Family Care: No Living arrangements: with family Gender identity (if verbalized by the patient): Female Spiritual care concerns: No Exam Narrative: GENERAL: Well-appearing, well-nourished, and in no acute distress. HEAD: Normocephalic, atraumatic. EYES: PERRLA and EOMI. ENT: Nares clear, no rhinorrhea or epistaxis. Mucous membranes moist. NECK: Supple. CHEST: Clear to auscultation. No respiratory distress. HEART: Regular rate and rhythm. ABDOMEN: Soft, nontender, nondistended. EXTREMITIES: Normal range of motion. No edema. SKIN: Warm, dry, no rash. NEURO: No focal deficits. Alert and oriented x3. P
--- NOTE | 2023-09-27 19:28 | PC.NURSE ---
Report received from SANDRA Ball. ERP at bedside discussing discharge plan.
[2023-09-27 19:45] LABS: Appearance Urine Cloudy (Clear); Bacteria Urine None Seen /hpf; Bilirubin Urine Negative (Negative); Blood Urine Negative (Negative); Color Urine Dark Yellow (Yellow); Glucose Urine UA Negative (Negative); Ketones Urine Trace mg/dL (Negative); Leukocyte Esterase Ur Negative LEU/UL (Negative); Need Manual Microscopic Reviewed; Nitrate Urine Negative (Negative); Protein Urine 1+ mg/dL (Negative); RBC Urine 0-2 /hpf (0-2); Specific Grav Ur 1.031 (1.001-1.035); Squamous Epithelial Cell Urine Few /hpf (Few); WBC Urine 0-5 /hpf
[2023-09-27 20:04] LABS: Add Urine Microscopic? YES
== END 2023-09-27 19:54 | disposition home or self-care (01) ==
PROVIDERS: Nurse Practitioner Family; Emergency Provider Emergency Medicine; PCP Family Medicine
DX: K52.9 Noninfective gastroenteritis and colitis, unspecified (principal); K21.9 Gastro-esophageal reflux disease without esophagitis; M19.90 Unspecified osteoarthritis, unspecified site
CPT/HCPCS: 36415; 80053; 81001; 83690; 85025; 96361; 96374; 96375; 96376; 99284; J2405; J7030

== ENCOUNTER 2023-12-30 09:45 | Outpatient (CLI) | payer OTHER, SELFPAY ==
[2023-12-30 16:58] LABS: Alanine Aminotransferase 26 U/L (6-35); Albumin Level 4.5 g/dL (3.5-5.1); Alkaline Phosphatase 68 U/L (38-126); Anion Gap 8 mmol/L (8-16); Aspartate Amino Transferase 35 U/L (14-36); Bilirubin,Total 0.8 mg/dL (0.2-1.3); Blood Urea Nitrogen 23 mg/dL (7-17); Calcium 9.9 mg/dL (8.4-10.2); Carbon Dioxide 27 mmol/L (22-30); Chloride 108 mmol/L (98-107); Cholesterol 175 mg/dL (0-200); Estimated Glomerular Filt Rate > 60; Glucose 119 mg/dL (65-110); HDL Direct 41 mg/dL; Potassium 4.3 mmol/L (3.4-5.0); Sodium 143 mmol/L (137-145); Triglycerides 120 mg/dL (<150)
[2023-12-30 17:08] LABS: LDL Cholesterol Direct 113 mg/dL
[2023-12-30 18:14] LABS: Hemoglobin A1C 6.3 % (<5.7)
== END 2023-12-30 09:46 | disposition home or self-care (01) ==
PROVIDERS: PCP Family Medicine; Visit Provider Nurse Practitioner
DX: R73.03 Prediabetes (principal); E78.2 Mixed hyperlipidemia
CPT/HCPCS: 36415; 80053; 80061; 83036

== ENCOUNTER 2024-03-03 09:19 | Emergency (ER) | payer OTHER, SELFPAY ==
--- NOTE | ~2024-03-03 | XR_ITS ---
EXAMINATION: XR elbow LT min 3V DATE: 03/03/2024 09:51 INDICATION: Left elbow injury. TECHNIQUE: 5 views of left elbow were obtained. COMPARISON: None. FINDINGS: There is a comminuted fracture of radial head and neck. The main distal fracture fragment d emonstrates impaction and 47 degrees radial angulation. There is mild osteoarthritis of ulnohumeral j oint. There is no elbow joint effusion. IMPRESSION: 1. Comminuted fracture of radial head and neck. Reviewed, dictated and finalized at location A.
--- NOTE | ~2024-03-03 | XR_ITS ---
EXAMINATION: XR humerus LT DATE: 03/03/2024 10:57 INDICATION: Left shoulder pain. TECHNIQUE: 2 views of left humerus were obtained. COMPARISON: None. FINDINGS: There are changes of distal or collection of the clavicle. There is a comminuted fracture o f head and neck of radius. There is mild osteoarthritis of glenohumeral joint. IMPRESSION: 1. Comminuted fracture of head and neck of radius. 2. Mild osteoarthritis of glenohumeral joint. Reviewed, dictated and finalized at location A.
--- NOTE | ~2024-03-03 | XR_ITS ---
EXAMINATION: XR shoulder LT min 2V DATE: 03/03/2024 10:57 INDICATION: Left shoulder pain. TECHNIQUE: 4 views of left shoulder were obtained. COMPARISON: Left shoulder radiographs 07/10/2012 FINDINGS: Bone alignment is normal. No fracture. There are changes of distal resection of the clavicl e. There is mild osteoarthritis of glenohumeral joint. IMPRESSION: 1. Mild osteoarthritis of glenohumeral joint. Reviewed, dictated and finalized at location A.
[2024-03-03 09:21] VITALS: BP 159/90; PULSE 77; RESP 16; TEMP 36.4; O2SAT 97
--- NOTE | 2024-03-03 10:17 | ED.UPPEXIN ---
HPI - Extremity Injury (Upper) General Chief Complaint: Extremity Injury, Upper Stated Complaint: fell left arm injury, fx Time Seen by Provider: 03/03/24 10:02 History of Present Illness HPI narrative: Patient is a 68 year old female with history of Ulcerative Colitis in remission on mesalamine, here with an elbow fracture. Patient states that on 02/27/2024 she was on vacation in the [facility], slipped and fell down onto her left elbow causing injury and immediate pain. She denies any other injuries. She went to an Emergency Department in the [facility] where they recommended emergent surgery on this elbow however she refused. They then recommended that she and her vacation and come home to see an orthopedic surgeon. Instead she decided to continue her vacation and flew home yesterday. She notes that they did place her in a posterior splint with Jeyson bandage and sling. She has been having some continued pain in her elbow as well as her shoulder which she believes may be due to holding the weight of her splint all week on vacation. She did contact her prior orthopedic surgeon's office, Dr. Schmidt who recommended xrays when she returned from vacation and his office was unsure if he operated on elbows. Patient denies any blood thinner use. She denies any numbness or weakness in her hand. She has been doing range of motion activities with her shoulder since the injury happened. Related Data Home Medications Medication Instructions Recorded Confirmed fexofenadine 180 mg tablet 180 mg PO BID 11/20/21 01/02/24 (Shakira Allergy) multivitamin 1 tablet PO DAILY 11/20/21 01/02/24 omeprazole 20 mg capsule,delayed 20 mg PO BID PRN Indigestion 11/20/21 01/02/24 release cyanocobalamin (vitamin B-12) 1,000 mcg PO DAILY 08/19/22 01/02/24 1,000 mcg capsule vit C 250 mg-vit E 90 mg-zinc 40 1 tablet PO BID 08/19/22 01/02/24 mg-copper 1 tl-tcceas-tlaewj capsule (PreserVision AREDS-2) Allergies Allergy/AdvReac Type Severity Reaction Status Date / Time codeine AdvReac Severe Nausea Verified 01/02/24 09:15 NSAIDS (Non-Steroidal AdvReac HAS COLITIS Verified 03/25/24 09:15 Anti-Inflamma Review of Systems Review of Systems: All systems reviewed & are unremarkable except as noted in HPI and below PMFSH Past Medical History Medical History Asthma exacerbation Chronic GERD COVID-19 Encounter for dual-energy x-ray absoptiometry review Factor V Leiden Hepatitis C antibody test negative Left knee pain Metabolic syndrome Mixed hyperlipidemia Osteoarthritis Pain in left knee Pain in right knee PONV (postoperative nausea and vomiting) Ulcerative colitis, unspecified Surgical History Surgical History H/O arthroscopy (~2011) left shoulder H/O colonoscopy Status post total right knee replacement (12/07/21) Family History Family History Mother Diabetes mellitus Family history of malignant neoplasm of breast in first degree relative Family history of malignant neoplasm of thyroid Grandparent Diabetes mellitus Cerebrovascular accident Father Family history of elevated blood lipids Family history of coronary artery disease Family history of malignant neoplasm of urinary bladder Social History Social History Social History: Caffeine-coffee Smoking status: Former smoker Second hand tobacco smoke exposure: No Additional smoking assessment comments: DENIES ANY FORM OF TOBACCO USE Alcohol intake: current Alcohol use details: 4-5 DRINKS PER MONTH Substance use: never Substance use type: does not use Lack of Transportation: No Lack of Food: Never True Current Housing: I Have Housing Concerned About Future Housing: No Difficulty Paying Gas/Electric Bills: No Diffi
[2024-03-03] MEDS: ONDANSETRON HCL ODT 4 MG TABLET PO (10:26)
[2024-03-03] MEDS: HYDROcodone/acetaminophen (*CRX) 5-325 MG TABLET 1 TAB PO (10:26)
== END 2024-03-03 12:17 | disposition home or self-care (01) ==
PROVIDERS: Emergency Provider Student in an Organized Health Care Education/Training Program; PCP Family Medicine
DX: S52.122A Displaced fracture of head of left radius, initial encounter for closed fracture (principal); S52.132A Displaced fracture of neck of left radius, initial encounter for closed fracture; W01.0XXA Fall on same level from slipping, tripping and stumbling without subsequent striking against object, initial encounter; J45.909 Unspecified asthma, uncomplicated; D68.51 Activated protein C resistance; E88.810 Metabolic syndrome; E78.2 Mixed hyperlipidemia; M19.012 Primary osteoarthritis, left shoulder; Z86.16 Personal history of COVID-19
CPT/HCPCS: 73030; 73060; 73080; 99284; A4565; A9270

== ENCOUNTER 2024-03-08 08:21 | Outpatient (CLI) | payer OTHER, SELFPAY ==
[2024-03-08 13:22] LABS: Alanine Aminotransferase 23 U/L (6-35); Albumin Level 4.2 g/dL (3.5-5.1); Alkaline Phosphatase 61 U/L (38-126); Anion Gap 5 mmol/L (4-12); Aspartate Amino Transferase 34 U/L (14-36); Bilirubin,Total 0.8 mg/dL (0.2-1.3); Blood Urea Nitrogen 17 mg/dL (7-17); Calcium 9.2 mg/dL (8.4-10.2); Carbon Dioxide 29 mmol/L (22-30); Chloride 103 mmol/L (98-107); Cholesterol 157 mg/dL (0-200); Estimated Glomerular Filt Rate > 60; Glucose 107 mg/dL (65-110); HDL Direct 34 mg/dL; Potassium 4.4 mmol/L (3.4-5.0); Sodium 137 mmol/L (137-145); Triglycerides 144 mg/dL (<150)
[2024-03-08 13:27] LABS: Hematocrit 46.6 % (37.0-47.0); Hemoglobin 14.2 g/dL (12.0-15.0); Mean Corpuscular HGB Conc 30.5 g/dl (32-36); Mean Corpuscular Hemoglobin 28.9 pg (26-34); Mean Corpuscular Volume 94.9 fl (80-100); Mean Platelet Volume 10.6 fl (7.4-10.4); Platelet Count Result 260 k/mm3 (150-375); Red Blood Count 4.91 M/mm3 (4.2-5.4); Red Cell Distribution Width 13.1 % (11.5-14.5); White Blood Count 6.1 K/mm3 (4.5-10.0)
[2024-03-08 13:34] LABS: LDL Cholesterol Direct 101 mg/dL
== END 2024-03-08 08:22 | disposition home or self-care (01) ==
PROVIDERS: PCP Family Medicine; Visit Provider Nurse Practitioner
DX: R73.03 Prediabetes (principal); I10 Essential (primary) hypertension; E78.2 Mixed hyperlipidemia
CPT/HCPCS: 36415; 80053; 80061; 85027

== ENCOUNTER 2024-04-02 09:27 | Outpatient (CLI) | payer OTHER, SELFPAY ==
[2024-04-02 13:20] LABS: Alanine Aminotransferase 19 U/L (6-35); Albumin Level 4.2 g/dL (3.5-5.1); Alkaline Phosphatase 63 U/L (38-126); Anion Gap 9 mmol/L (4-12); Aspartate Amino Transferase 33 U/L (14-36); Bilirubin,Total 0.5 mg/dL (0.2-1.3); Blood Urea Nitrogen 15 mg/dL (7-17); Calcium 9.1 mg/dL (8.4-10.2); Carbon Dioxide 26 mmol/L (22-30); Chloride 109 mmol/L (98-107); Cholesterol 157 mg/dL (0-200); Estimated Glomerular Filt Rate > 60; Glucose 132 mg/dL (65-110); HDL Direct 39 mg/dL; Sodium 144 mmol/L (137-145); Triglycerides 137 mg/dL (<150)
[2024-04-02 13:31] LABS: LDL Cholesterol Direct 100 mg/dL
[2024-04-02 14:13] LABS: Vitamin B12 > 1000.0 pg/mL (239-931)
[2024-04-02 19:27] LABS: Hemoglobin A1C 6.2 % (<5.7)
== END 2024-04-02 09:28 | disposition home or self-care (01) ==
PROVIDERS: PCP Family Medicine; Visit Provider Nurse Practitioner
DX: E78.2 Mixed hyperlipidemia (principal); R73.03 Prediabetes; E53.8 Deficiency of other specified B group vitamins
CPT/HCPCS: 36415; 80053; 80061; 82607; 83036

== ENCOUNTER 2024-04-20 11:04 | Emergency (ER) | payer OTHER, SELFPAY ==
[2024-04-20 11:17] VITALS: BP 125/79; PULSE 76; RESP 18; TEMP 36.3; O2SAT 98
[2024-04-20 11:29] LABS: EDINFLUASCREEN Negative; EDINFLUBSCREEN Negative
--- NOTE | 2024-04-20 11:49 | ED.URI ---
HPI - URI/Sore Throat General Chief Complaint: Upper Respiratory Infection Stated Complaint: cough/fever/aches Time Seen by Provider: 04/20/24 11:49 Source: patient, RN notes reviewed and old records reviewed Mode of arrival: ambulatory Limitations: no limitations History of Present Illness HPI Narrative: 68-year-old female presents to the [facility] with complaints of cough, feeling feverish, body aches and congestion for 4-5 days. Reports taking Mucinex. Related Data Home Medications Medication Instructions Recorded Confirmed fexofenadine 180 mg tablet 180 mg PO BID 11/20/21 04/20/24 ([facility]) multivitamin 1 tablet PO DAILY 11/20/21 04/20/24 omeprazole 20 mg capsule,delayed 20 mg PO BID PRN Indigestion 11/20/21 04/20/24 release cyanocobalamin (vitamin B-12) 1,000 mcg PO DAILY 08/19/22 04/20/24 1,000 mcg capsule vit C 250 mg-vit E 90 mg-zinc 40 1 tablet PO BID 08/19/22 04/20/24 mg-copper 1 gk-mrxzhw-fpzhbl capsule (PreserVision AREDS-2) aspirin 81 mg tablet,delayed 81 mg PO DAILY 03/08/24 04/20/24 release acetaminophen 500 mg tablet 1,000 mg PO Q6H PRN Pain, Moderate 04/20/24 04/20/24 Allergies Allergy/AdvReac Type Severity Reaction Status Date / Time codeine AdvReac Intermediate Nausea and Verified 04/20/24 11:23 Vomiting NSAIDS (Non-Steroidal AdvReac Intermediate Gastrointestinal Verified 04/20/24 11:23 Anti-Inflamma Upset Review of Systems Review of Systems: All systems reviewed & are unremarkable except as noted in HPI and below Constitutional: Constitutional: Reports no additional constitutional complaints Eyes: Eyes: Reports no additional eye complaints ENT: Reports as per HPI Cardiovascular: Cardiovascular: Reports no additional cardiovascular complaints, Denies chest pain and Denies dyspnea Respiratory: Respiratory: Reports as per HPI, Denies chest congestion, Reports cough and Denies dyspnea Gastrointestinal: Gastrointestinal: Reports no additional gastrointestinal complaints, Denies abdominal pain, Denies nausea and Denies vomiting Musculoskeletal: Musculoskeletal: Reports no additional musculoskeletal complaints Integumentary/Breasts: Skin/Breast: Reports system reviewed and no additional complaints, except as docu Neurologic: Reports system reviewed and no additional complaints, except as documented Psychiatric: Psychiatric: Reports no additional psychiatric complaints Allergic/Immunologic: Allergic/Immunologic: Reports no additional allergic/immunologic complaints PMFSH Past Medical History Medical History Asthma exacerbation Chronic GERD COVID-19 Encounter for dual-energy x-ray absoptiometry review Factor V Leiden Hepatitis C antibody test negative Left knee pain Metabolic syndrome Mixed hyperlipidemia Osteoarthritis Pain in left knee Pain in right knee PONV (postoperative nausea and vomiting) Ulcerative colitis, unspecified Surgical History Surgical History H/O arthroscopy (~2011) left shoulder H/O colonoscopy Status post total right knee replacement (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) Family History Family History Mother Diabetes mellitus Family history of malignant neoplasm of breast in first degree relative Family history of malignant neoplasm of thyroid Grandparent Diabetes mellitus Cerebrovascular accident Father Family history of elevated blood lipids Family history of coronary artery disease Family history of malignant neoplasm of urinary bladder Social History Social History Social History: Caffeine-coffee Smoking status: Former smoker Second hand tobacco smoke exposure: No Additional smoking assessment comments: DENIES ANY FORM OF TOBACCO USE Alcohol intake: current Alcohol use details: 4-5 DRINKS PER MONTH Substance
== END 2024-04-20 12:10 | disposition home or self-care (01) ==
PROVIDERS: Emergency Provider Nurse Practitioner; PCP Family Medicine
DX: J06.9 Acute upper respiratory infection, unspecified (principal); Z20.822 Contact with and (suspected) exposure to COVID-19; Z87.891 Personal history of nicotine dependence; J45.909 Unspecified asthma, uncomplicated; K21.9 Gastro-esophageal reflux disease without esophagitis; D68.51 Activated protein C resistance; E88.810 Metabolic syndrome; E78.2 Mixed hyperlipidemia; M19.90 Unspecified osteoarthritis, unspecified site; Z96.651 Presence of right artificial knee joint
CPT/HCPCS: 87426; 87804; 99213; G0463

== ENCOUNTER 2024-06-05 10:22 | Outpatient (CLI) | payer OTHER, SELFPAY ==
--- NOTE | ~2024-06-05 | MM_ITS ---
EXAMINATION: MM screening [facility] BI w haley HISTORY: Screening TECHNIQUE: Craniocaudal and mediolateral oblique 3-D tomosynthesis images were obtained and synthetic 2-D images were generated. CAD analysis was submitted and interpreted. COMPARISON: Comparison to multiple prior studies sequentially, with oldest reviewed study dated 10/24. BREAST PARENCHYMAL COMPOSITION: Not dense: There are scattered areas of fibroglandular density. FINDINGS: The right breast is stable without evidence for malignancy. There are multiple left breast masses which were previously characterized as cysts by ultrasound. No suspicious architectural distor tion or calcifications. IMPRESSION: 1. No mammographic evidence of malignancy. 2. Recommend routine screening mammography in one year. BI-RADS Category 2: Benign finding(s). Reviewed, dictated and finalized at location B.
== END 2024-06-05 10:23 ==
LOC: MICIMG 10:23
PROVIDERS: PCP Family Medicine; Visit Provider Nurse Practitioner
DX: Z12.31 Encounter for screening mammogram for malignant neoplasm of breast (principal)
CPT/HCPCS: 77063; 77067

== ENCOUNTER 2024-06-20 09:40 | Outpatient (CLI) | payer OTHER, SELFPAY ==
--- NOTE | ~2024-06-20 | DEXA_ITS ---
Bone Density Report Name: USAMA MEJIA Age: 68 Sex: Female Ethnicity: White Date of : 1955 Indication: postmenopausal; screening for osteoporosis; parental hip fracture; inflammatory bowel disease; asthma or emphysema; Referring Provider: AJAY KELLEY Study: Bone densitometry was performed. Exam Date: June 20, 2024 Accession number: [id number] Bone Density: Region BMD T-score Z-score Classification AP Spine(L1-L4) 1.019 -0.3 1.6 Normal Femoral Neck (Left) 0.743 -1.0 0.6 Normal Total Hip (Left) 0.885 -0.5 0.9 Normal Femoral Neck (Right) 0.739 -1.0 0.6 Normal Total Hip (Right) 0.882 -0.5 0.8 Normal Total Hip Mean 0.884 -0.5 0.9 Normal World Health Organization criteria for BMD impression classify patients as: Normal (T-score at or above -1.0), Osteopenia (T-score between -1.0 and -2.5), or Osteoporosis (T-score at or below -2.5). 10-year Fracture Risk: FRAX not reported because: All T-scores for Spine Total, Hip Total, Femoral Neck at or above -1.0 Clinical Information Provided by Patient: Parent has had a hip fracture Has the following medical conditions: Asthma or Emphysema, Inflammatory bowel diseases Patient maximum height was 63.0 No regular weight bearing exercise Does not regularly consume dairy products Drinks caffeinated beverages Onset of menses at age 16 Number of children 2 Impression: The patient has normal bone mass. The patient has risk factors, including: parental hip fracture. Discussion: BONE DENSITY IS ABOVE THE MINIMUM DESIRABLE LEVEL AT ALL SKELETAL SITES TESTED. This patient?s bone mineral density is above the minimum desirable level (T-score -1.0 or better) at all sites measured. The patient should follow a healthful lifestyle (good nutrition with adequate calcium and vitamin D, and appropriate weight-bearing exercise). Follow-Up: Consider repeating this study in 5 years or sooner if there is some new clinical indication. Reported by: ETHAN on 06/20/2024 10:20:00 AM. Reviewed, dictated and finalized at location AGlenn MORALES
== END 2024-06-20 09:41 | disposition home or self-care (01) ==
LOC: ANHIMG 09:42
PROVIDERS: PCP Family Medicine; Visit Provider Nurse Practitioner
DX: M85.88 Other specified disorders of bone density and structure, other site (principal)
CPT/HCPCS: 77080

== ENCOUNTER 2024-09-05 08:24 | Outpatient (CLI) | payer OTHER, SELFPAY ==
[2024-09-05 20:28] LABS: Hemoglobin 14.3 g/dL (12.0-15.0); Mean Corpuscular HGB Conc 31.8 g/dl (32-36); Mean Corpuscular Hemoglobin 29.3 pg (26-34); Mean Corpuscular Volume 92.2 fl (80-100); Mean Platelet Volume 10.3 fl (7.4-10.4); Platelet Count Result 221 k/mm3 (150-375); Red Blood Count 4.88 M/mm3 (4.2-5.4); Red Cell Distribution Width 11.8 % (11.5-14.5); White Blood Count 5.7 K/mm3 (4.5-10.0)
[2024-09-05 21:19] LABS: Alanine Aminotransferase 21 U/L (6-35); Albumin Level 4.2 g/dL (3.5-5.1); Alkaline Phosphatase 68 U/L (38-126); Anion Gap 7 mmol/L (4-12); Aspartate Amino Transferase 32 U/L (14-36); Bilirubin,Total 0.6 mg/dL (0.2-1.3); Blood Urea Nitrogen 20 mg/dL (7-17); Calcium 9.2 mg/dL (8.4-10.2); Carbon Dioxide 28 mmol/L (22-30); Chloride 106 mmol/L (98-107); Cholesterol 165 mg/dL (0-200); Estimated Glomerular Filt Rate > 60; Glucose 134 mg/dL (65-110); HDL Direct 39 mg/dL; Potassium 4.1 mmol/L (3.4-5.0); Sodium 141 mmol/L (137-145); Triglycerides 127 mg/dL (<150)
[2024-09-05 21:30] LABS: LDL Cholesterol Direct 99 mg/dL
[2024-09-05 22:18] LABS: Hemoglobin A1C 6.5 % (<5.7)
[2024-09-05 22:52] LABS: Vitamin D 25 Hydroxy 35.7 ng/mL
== END 2024-09-05 08:25 | disposition home or self-care (01) ==
LOC: ANHGOSHLAB 08:25
PROVIDERS: PCP Family Medicine; Visit Provider Nurse Practitioner
DX: E78.5 Hyperlipidemia, unspecified (principal); E55.9 Vitamin D deficiency, unspecified; R73.03 Prediabetes
CPT/HCPCS: 36415; 80053; 80061; 82306; 83036; 84443; 85027

== ENCOUNTER 2024-11-27 13:00 | Outpatient (RCR) | payer OTHER, SELFPAY ==
--- NOTE | 2024-09-20 14:16 | OTOPEVAL1 ---
Assessment and note entered by Torsten Mcnamara, FÉLIX/Sanya, ROSETTA OT Evaluation Information 09/20/24 Assessment Status Evaluation Diagnosis Pain in left elbow ICD-10 Condition Codes (OT) M25.522 Subjective Information Patient underwent a left radial head replacement 03/11/24. She reports residual stiffness and weakness in the left elbow. She is having difficulties reaching her face. She is reporting residual pain that wakes her up every night. Difficulties playing ball with her granddaughter. Reported Pain Level Pain Score 5: Self Report Assessment OT Clinical Summary Patient referred to OT following left radial head replacement ~6 months ago. She presents with residual stiffness and weakness that is limiting return to functional use for ADLs, IADLs, and playing with her grandchildren. Skilled OT indicated to maximize functional ROM and strength of the left arm to facilitate reduced pain, improved ROM, and improved strength for ADLs. Plan of Care Interventions Therapeutic Exercise,Manual Therapy,Therapeutic Activities,Hot Pack/Cold Pack,Paraffin OT Services Indicated Yes Treatment Frequency and 1x/week for 6 visits Duration These treatments will address the objective and functional deficits as defined above. The patient will be advanced safely and appropriately in order for the patient to progress towards his/her prior level of function. Additional exercises will be introduced and as well as a comprehensive home exercise program upon discharge, if needed, ?to ensure carryover of functional gains achieved in the clinic. This treatment plan has been reviewed and agreement upon by the patient.
--- NOTE | 2024-09-20 14:17 | OPREHPOC ---
Outpatient Therapy Plan of Care This is a Multidisciplinary Plan of Care that may contain components documented by all disciplines (PT, OT, and ST.) OT Problem 1 OT Problem #1 Knowledge Deficit OT Goal 1 Goal / Goal Update Patient to be independent with instructed materials. Target Visit 6 OT Problem 2 OT Problem #2 Pain OT Goal 1 Goal / Goal Update Patient to be independent with non-medication pain management - heat/ice - ROM Target Visit 6 OT Problem 3 OT Problem #3 Impaired Range of Motion OT Goal 1 Goal / Goal Update Increase active ROM of the (L) elbow: - flexion to 130 degrees - extension to -20 degrees Target Visit 6 OT Problem 4 OT Problem #4 Impaired Strength OT Goal 1 Goal / Goal Update Patient to improve functional strength of the left UE as demonstrated by: - increase to 5 lbs. with elbow HEP - increase to 5 lbs. with wrist HEP - increase left aligner typewriter strength to 45 lbs. Target Visit 6
--- NOTE | 2024-10-23 14:12 | OTOPPROG ---
Assessment and note entered by FÉLIX Ornelas/Sanya, ROSETTA OT Progress Update 10/23/23 Assessment Status Progress Diagnosis Pain in left elbow ICD-10 Condition Codes (OT) Pain in left elbow M25.522 Subjective Information Patient reports progress since starting therapy a month ago. She reports she is now able to reach her face to wash her face and apply lotion. She reports she is no longer waking up every night due to pain. She reports she only wakes up sometimes depending on how much she's used her arm that day. She shoveled some snow the other day and reports she could tell how weak her arm felt. Assessment OT Clinical Summary Patient referred to OT following left radial head replacement ~7 months ago. She has attended 6 OT sessions focused on improving left UE flexibility and strength. She has made good progress with therapy. Elbow flexion improved 5 degrees (130 degrees) and elbow extension improved from 45 deg. lag to a 25 deg. extension lag. She has responded well to soft tissue mobilization with IASTM. She demonstrates several areas of muscle tightness that are making improvements also. Continued skilled OT indicated to maximize functional ROM and strength of the left arm to facilitate reduced pain, improved ROM, and improved strength for ADLs. Plan of Care Interventions Therapeutic Exercise,Manual Therapy,Therapeutic Activities,Hot Pack/Cold Pack,Paraffin OT Services Indicated Yes Treatment Frequency and 1x/week for 4 visits Duration These treatments will address the objective and functional deficits as defined above. The patient will be advanced safely and appropriately in order for the patient to progress towards his/her prior level of function. Additional exercises will be introduced and as well as a comprehensive home exercise program upon discharge, if needed, ?to ensure carryover of functional gains achieved in the clinic. This treatment plan has been reviewed and agreement upon by the patient.
--- NOTE | 2024-11-27 13:53 | OTOPDC ---
Assessment and note entered by Torsten Mcnamara, OTRickey/Sanya, CHT OT Discharge Summary 11/27/24 Assessment Status Discharge ICD-10 Condition Codes (OT) Pain in left elbow M25.522 Subjective Information Patient reports progress in the last month. She reports she has been experiencing less pain and she feels she is getting stronger. Improved flexibility to allow for improved ability to reach her face for grooming and feeding. She has been going to the gym 2-3 times a week working on strengthening. Since the start of care: - active elbow flexion improved from 125 to 132 degrees, passive 135 degrees - active elbow extension improved from -45 to -25 degrees - forearm rotation is WNL Reported Pain Level Pain Score 0: Self Report Additional Pain Score Comments No pain, reports she feels stiff and sore . Assessment OT Clinical Summary Patient referred to OT following left radial head replacement ~8 months ago. She has attended 10 OT sessions focused on improving left UE flexibility and strength. She has made good progress with therapy. Elbow flexion improved 7 degrees (132 degrees) and elbow extension improved from 45 deg. lag to a 25 deg. extension lag. She has responded well to soft tissue mobilization with IASTM. She has progressed functionally also, being able to reach her face for improved left UE use for feeding and grooming. Her pain has reduced and she is now going to the gym to use the machines to strengthen. At this time she is independent with her HEP and ready for discharge. D/C OT with HEP. Plan of Care OT Services Indicated No
== END 2024-11-27 14:31 | disposition home or self-care (01) ==
LOC: ANHGOSHOT 13:00
PROVIDERS: PCP Family Medicine; Visit Provider Nurse Practitioner
DX: M25.522 Pain in left elbow (principal)
CPT/HCPCS: 97018; 97110; 97140; 97165

== ENCOUNTER 2025-01-14 09:09 | Outpatient (CLI) | payer OTHER, SELFPAY ==
--- OUTSIDE RECORDS SUMMARY | 2025-01-14 09:52 | XMS_ITS | Referral Summary ---
Author Organization [facility] Address [address] [place] [address] Care Team Providers Care Assembly Operator Name Role Phone Aniyah Bella DO Primary Care Provider [phone]- [phone] Allergies Active Allergy Reactions Criticality Noted Date Comments Codeine Other (See comments) Low 03/07/2024 Nsaids (Non-Steroidal Anti-Inflammatory Drug) Other (See comments) Low 03/08/2024 ? Medications aspirin 81 mg enteric coated tablet Take 1 tablet (81 mg total) by mouth daily Instructed to hold 3 days prior to surgery Active EPINEPHrine 0.3 mg/0.3 mL auto-injection syringe USE UTD ONCE INTRAMUSCULARLY Active flurbiprofen (OCUFEN) 0.03 % ophthalmic solution INT 1 GTT IN OD THREE TIMES DAILY. START AFTER SURGERY FOR 21 DAYS Active fluticasone furoate-vilant Morgan (BREO ELLIPTA) 200-25 mcg/dose diskus inhaler 1 puff daily Ac tive HYDROcodone-ac etaminophen (NORCO) 5-325 mg per tablet 03/03/20 24 Active mesalamine (LIALDA) 1.2 gram EC tablet Take 4 tablets (4.8 g total) by mouth daily Active montelukast (SINGULAIR) 10 mg tablet Take 1 tablet (10 mg total) by mouth daily Active pravastatin (PRAVACHOL) 20 mg tablet Take 1 tablet (20 mg total) by mouth nightly Active vitamin N72-icgdc acid 0.5-1 mg tablet Take by mouth Active vitamin A-vitamin C-vit E-min tablet Take by mouth Active fexofenadine (MARY) 180 mg tablet Take 1 tablet (180 mg total) by mouth daily Active omeprazole (PriLOSEC) 20 mg capsule Take 1 capsule (20 mg total) by mouth daily Active HYDROcodone-ac etaminophen (NORCO) 7.5-325 mg per tabletIndicati ons:Pain Take 1-2 tablets every 4 hours as needed for pain 45 tablet 03/13/20 24 Active Active Problems Problem Noted Date Diagnosed Date Left elbow pain 03/07/2024 Closed displaced fracture of head of left radius 03/07/2024 Social History Tobacco Use Types Packs/Day Years Used Date Smoking Tobacco: Never Smokeless Tobacco: Never Tobacco Cessation:Counseling Given: Not Answered AUDIT-C Answer Date Recorded Q1: How often do you have a drink containing alc ohol? Monthly or less 03/13/2024 Q2: How many drinks containi ng alcohol do you have on a typical day when you are drinking? 1 or 2 03/13/2024 Q3: How often do you have si x or more drinks on one occasion? Never 03/13/2024 Personal Safety Answer Date Recorded Have you ever been in or are you currently in a harmful physical or emotional relationship or is someone making you feel afraid or unsafe? Denies 03/13/2024 Comments No Sex and Gender Information Value Date Recorded Sex Assigned at Not on file Legal Sex Female 11:14 AM CDT Gender Identity Not on file Sexual Orientation Not on file Last Filed Vital Signs Vital Sign Reading Time Taken Comments Blood Pressure 143/82 03/13/2024 3:15 PM CDT Pulse 69 03/13/2024 3:15 PM CDT Temperature 36.1 C (97 F) 03/13/2024 2:45 PM CDT Respiratory Rate 18 03/13/2024 3:15 PM CDT Oxygen Saturation 96% 03/13/2024 3:15 PM CDT Inhaled Oxygen Concentration - - Weight 101.6 kg (223 lb 14.4 oz) 03/13/2024 8:30 AM CDT Height 161.3 cm (5' 3.5 ) 03/13/2024 8:30 AM CDT Body Mass Index 39.04 03/13/2024 8:30 AM CDT Plan of Treatment Not on file Medical Devices Implanted Type Area Motor Winder Device Identifier Shelf Expiration Date Model / Serial / Lot Synthes Head Radial Elbow 6.5x22mm 10+3mm Head Height 09.405.263s - [id number] Implanted:Qty: 1 on 03/13/2024 by Jung Christy MD at [facility] Left: Elbow Synthes I [id number] 05/09/2026 09.405.263 S / / [id number] [employer] Suturetak Tigerwire 3mm 14.5mm 2 [place] Suture Fiberwire [id number] - [id number] Implanted:Qty: 1 on 03/13/2024 by Jung Christy MD at [facility] Left: Elbow [employer] [id number] 01/07/2027 [id number]-[id number] -2 / / [id number] [employer] Suturetak Tigerwire 3mm 14.5mm 2 [employer] Suture Fiberwire [id number] - [id number] Implanted:Qty: 1 on 03/13/2024 by Jung Christy MD at [facility] Left: Elbow [employer] [id number] 05/09/2027 [id number]-[id number] -2 / / [id number] Insurance [facility] Care Teams Assembly Operator Relationship Specialty Start Date End Date Aniyah Bella DO [address] [place] [address] [address] PCP - General Family Medicine 03/06/24
--- OUTSIDE RECORDS SUMMARY | 2025-01-14 09:52 | XMS_ITS | Clinical Summary ---
Author Organization [facility] Address [address] [place] [address] Care Team Providers Care It Data Architect Name Role Phone Aniyah Bella DO Primary Care Provider [phone]- [phone] Allergies Active Allergy Reactions Criticality Noted Date [...] mg total) by mouth nightly Active vitamin H50-yujvr acid 0.5-1 mg tablet Take by mouth [...] fracture of head of left radius 03/07/2024 Surgical History Surgery Date Site/Laterality Comments KNEE SURGERY Bilateral 2021 ROTATOR CUFF REPAIR 10/10/2012 - 10/09/2013 Left Medical History Medical History Date Comments Hypercholesteremia Asthma Factor 5 Leiden mutation, heterozygous PONV (postoperative nausea and vomiting) Delayed emergence from general anesthesia Heart murmur GERD (gastroesophageal reflux disease) Ulcerative colitis (HCC) Family History Medical History Relation Name Comments Clotting disorder Mother Diabetes Mother Relation Name Status Comments Mother Social History Tobacco Use Types Packs/Day Years [...] on file Sexual Orientation Not on file Obstetrics History Last Filed Vital Signs Vital Sign Reading [...] 03/13/2024 8:30 AM CDT Plan of Treatment Health Maintenance Due Date Last Done Comments Breast Cancer Screening-Mammogram 1955 Colon Cancer Screening-Colonoscopy 1955 Depression Screening 1955 Fall Risk Assessment 1955 Hepatitis C Screening 1955 Osteoporosis Screening-Bone Density Scan 1955 DTaP/Tdap/Td Vaccine (1 - Tdap) 1968 Hepatitis B Screening 1975 Zoster Vaccine (1 of 2) 2007 Well Visit 65+ 2022 Covid-19 Vaccine (3 - 2023-2 5 season) 2024 01/02/2021, 12/05/2020 Influenza Vaccine (#1) 2024 3, 08/20/2021, 07/31/2020, Additional history exists Pneumococcal vaccine 65+ Completed 09/05/2023 Medical Devices Implanted Type Area Crack Off Person Device Identifier Shelf Expiration Date Model / Serial / Lot Synthes Head Radial Elbow 6.5x22mm 10+3mm Head Height 09.405.263s - [id number] Implanted:Qty: 1 on 03/13/2024 by Jung Christy MD at [facility] Left: Elbow Synthes I [id number] 05/09/2026 09.405.263 S / / [id number] [employer] Suturetak Tigerwire 3mm 14.5mm 2 [employer] Suture Fiberwire [id number] - [id number] Implanted:Qty: 1 on 03/13/2024 by Jung Christy MD at [facility] Left: Elbow [employer] [id number] 01/07/2027 [id number] -2 / / [id number] [employer] Suturetak Tigerwire 3mm 14.5mm 2 [place] Suture Fiberwire [id number] - [id number] Implanted:Qty: 1 on 03/13/2024 by Jung Christy MD at [facility] Left: Elbow [employer] [id number] 05/09/2027 AR-[id number] -2 / / [id number] Insurance [facility] Care Teams It Data Architect Relationship Specialty Start Date End Date Aniyah Bella DO [facility] [address] [address] PCP - General Family Medicine 03/06/24
--- OUTSIDE RECORDS SUMMARY | 2025-01-14 09:53 | XMS_ITS | Data Portability ---
Author Organization [place] - [facility] [employer], Main Office Address [address] [place] [address] Care Team Providers Care Military Source Operations Specialist Name Role Phone HIRA OSCAR Primary Care Provider HIRA OSCAR Referring Provider [phone] Assessment Encounter Date Assessment Date Assessment LastModified by Organization Details LastModified Time 09/09/2023 09/09/2023 HPI: Patient returns. She is now 1 year out from left total knee arthroplasty. Overall doing very well. Having no complaints or problems with left knee. Her right knee is now 2 years out and it continues to be asymptomatic well. Physical exam: 67-year-old female alert pleasant. She walks very well today without limp or assistance. Incision over the left knee is well healed. no effusion in the knee. Range of motion is from 0-135 degrees. She has excellent stability in both flexion and extension. Impression: 67-year-old female who is now 1 year out from left total knee in 2 years out from right total knee. She is very happy with her results. Long-term risk of infection was discussed. At this point we will see her back in 5 years for routine x-ray surveillance of both knees or sooner if she has problems. 20 minutes was spent in treatment patient with more than half of this in [id number] conversation carmen Not available 09/09/2023 11:03:28 Plan of Treatment Reminders Order Date Submit Date Provider Last Modified By Organization Details Last Modified Time Details Appointments None record ed. Lab None record ed. Referral None record ed. Procedures None record ed. Surgeries None record ed. Imaging XR, knee 023 09/09/20 23 [email or web address] [place], [address] [address], [place], [address], 3 11:34:53 Medication Orders None record ed. Patient TargetsNo targets recorded. Patient InstructionsNo instructions recorded. Reason for Referral None Reported. Results Created Date Observation Date Name Description Value Unit Range Abnormal Flag Note LastModifiedBy Organization Detail LastModifiedTime 09/08/20 22 09/08/2022 XR, knee No observ ation record ed. [id number] [facility] [address], [place], [address], 12/08/2022 10:51:42 10/20/19 23 XR, knee No observ ation record ed. [id number] [facility] [place] [address], [place], [address], 12/08/2022 10:51:42 09/09/20 23 XR, knee No observ ation record ed. [email or web address] [facility] [place] [address], [place], [address], 09/09/2023 11:02:09 Result Notes None recorded. Problems Name Problem SNOMED Code Status Onset Date Resolution Date Notes Provider Name and Address Organization Details Recorded Time Osteoarthr itis of right knee joint 3925803736746 00 Active 2021 Not Available [facility] 3 10:45:46 Osteoarthr itis 628720397 Active 2019 Not Available [facility] 3 10:45:46 Pain of right knee joint 1775493435622 00 Active 2022 Not Available [facility] 3 10:45:46 Pain of left knee joint 6972078484626 07 Active 2021 Not Available [facility] 3 10:45:46 Problem Notes None recorded. Procedures Surgical History Date Name Laterality Status Provider Name and Address Organization Details Recorded Time Knee Surgery completed Not Available [facility] 12/08/2022 10:42:14 procedure on shoulder completed Not Available [facility] 12/08/2022 10:42:14 Imaging Results Imaging Date Name Status [facility] by [facility] Details LastModified Time 10/20/2022 XR, knee completed [id number] [facility] [place] [address], [place], [address], 12/08/2022 10:51:42 09/08/2022 XR, knee completed [id number] [facility] [address], [place], [address], 12/08/2022 10:51:42 09/09/2023 XR, knee completed [email or web address] [facility] [place] [address], [place], [address], 09/09/2023 11:02:09 Procedure Notes None recorded. Medical Equipment None Reported. Allergies Allergen ID Allergen Name Allergen Category Reaction Reaction Severity Criticality Documentation Date Start Date Code Code System Note Provider Name and Address Organization Details Recorded Time 23918 codeine medicatio n Not available Not available Not available 12/08/2022 2670 RxNorm sick Not Available [facility] 10:51:26 Medications Name Sig Start Date Stop Date Status Note LastModified by Organization Details LastModified Time cyclobenzap rine 10 mg tablet Take 1 tablet 3 times a day by oral route. active Not Available Not Available No t Available prednisone 10 mg tablet TAKE 5 TABLETS BY MOUTH ONCE DAILY FOR 2 DAYS THEN 4 ONCE DAILY FOR 2 DAYS THEN 3 ONCE DAILY FOR 2 DAYS THEN 2 ONCE DAILY FOR 2 DAYS THEN 1 ONCE DAILY FOR 2 DAYS active Not Available Not Available No t Available clarithromy felisa 500 mg tablet TK 1 T PO Q 12 H FOR 10 DAYS 08/27 completed Not Available Not Available Not Available flurbiprofe n 0.03 % eye drops INT 1 GTT IN OD THREE TIMES DAILY. START AFTER SURGERY FOR 21 DAYS active Not Available Not Available No t Available aspirin 81 mg tablet,norma yed release TAKE 1 TABLET BY MOUTH DAILY active Not Available Not Available No t Available tramadol 50 mg tablet Take 1 tablet PO TID PRN severe pain active Not Available Not Available No t Available acetaminoph en 500 mg tablet TAKE 2 CAPSULES BY MOUTH EVERY 6 HOURS 03/19 completed Not Available Not Available Not Available prednisolon e acetate 1 % eye drops,suspe nsion SHAKE LQ AND INT 1 GTT IN OD THREE TIMES DAILY. START AFTER SURGERY 06/18 completed Not Available Not Available Not Available pravastatin 10 mg tablet TAKE 1 TABLET BY MOUTH DAILY 10/20 completed Not Available Not Available Not Available Kenalog 10 mg/mL suspension for injection In office injection administe red by the provider 06/18 completed [facility]: [phone] Not Available Not Available Not Available benzonatate 100 mg capsule TAKE 1 CAPSULE BY MOUTH THREE TIMES DAILY NEEDED FOR COUGH active Not Available Not Available No t Available cephalexin 500 mg capsule TAKE 1 CAPSULE BY MOUTH EVERY 6 HOURS 10/20 completed Not Available Not Available Not Available fluorometho lone 0.1 % eye drops,suspe nsion SHAKE WELL AND INSTILL 1 DROP INTO THE RIGHT EYE TID active Not Available Not Available No t Available polymyxin B sulfate 10,000 unit-trimet hoprim 1 mg/mL eye drops INT 1 GTT IN OD FOUR TIMES DAILY. START 1 DAY B SURGERY FOR 8 DAYS 06/18 completed Not Available Not Available Not Available montelukast 10 mg tablet TAKE 1 TABLET BY MOUTH ONCE DAILY IN THE MORNING active Not Available Not Available No t Available pravastatin 20 mg tablet TAKE 1 TABLET BY MOUTH EVERY DAY AT BEDTIME active Not Available Not Available No t Available azelastine 137 mcg (0.1 %) nasal spray USE 2 SPRAYS IN EACH NOSTRIL TWICE DAILY 09/23 completed Not Available Not Available Not Available budesonide DR - ER 3 mg capsule,del ayed,extend ed release 01/04 completed Not Available Not Available Not Available epinephrine 0.3 mg/0.3 mL injection, auto-inject or USE UTD ONCE INTRAMUSC ULARLY active Not Available Not Available No t Available methylpredn isolone 4 mg tablets in a dose pack FPD 09/23 completed Not Available Not Available Not Available albuterol sulfate HFA 90 mcg/actuati on aerosol inhaler INHALE 2 PUFFS BY MOUTH EVERY 4 TO 6 HOURS NEEDED FOR SHORTNESS OF BREATH active Not Available Not Available No t Available fluticasone propionate 50 mcg/actuati on nasal spray,suspe nsion SHAKE LIQUID AND USE 1 SPRAY IN EACH NOSTRIL DAILY 09/20 completed Not Available Not Available Not Available amoxicillin 875 mg-michelleu m clavulanate 125 mg tablet TAKE 1 TABLET BY MOUTH TWICE DAILY active Not Available Not Available No t Available oxycodone 5 mg tablet TAKE 1 TABLET BY MOUTH EVERY 4 HOURS NEEDED FOR PAIN 09/09 completed Not Available Not Available Not Available mesalamine 1,000 mg rectal suppository 09/20 completed Not Available Not Available Not Available lidocaine (PF) 10 mg/mL (1 %) injection solution In office injection administe red by the provider 09/23 completed [facility]: [phone] Not Available Not Available Not Available lidocaine (PF) 5 mg/mL (0.5 %) injection solution In office injection administe red by the provider 06/18 completed Not Available Not Available Not Available olopatadine 0.2 % eye drops INSTILL 1 DROP IN BOTH EYES EVERY DAY active Not Available Not Available No t Available mesalamine 1.2 gram tablet,norma yed release TAKE 4 TABLETS BY MOUTH DAILY active Not Available Not Available No t Available budesonide- formoterol HFA 160 mcg-4.5 mcg/actuati on aerosol inhaler INL 2 PFS PO Q 12 H 09/23 completed Not Available Not Available Not Available SmoothLax 17 gram oral powder packet 03/19 completed Not Available Not Available Not Available Eliquis 2.5 mg tablet TAKE 1 TABLET BY MOUTH EVERY 12 HOURS 09/09 completed Not Available Not Available Not Available Stimulant Laxative Plus 8.6 mg-50 mg tablet TAKE 2 TABLETS BY MOUTH TWICE DAILY 01/04 completed Not Available Not Available Not Available Breo Ellipta 200 mcg-25 mcg/dose powder for inhalation INHALE 1 PUFF BY MOUTH ONCE DAILY active Not Available Not Available No t Available Spiriva Respimat 1.25 mcg/actuati on solution for inhalation INHALE 2 PUFFS BY MOUTH EVERY DAY 09/23 completed Not Available Not Available Not Available Vitals Date Recorded Body mass index (BMI) Body height Body weight Provider Name and Address Organization Details Last Updated DateTime 06/18/2022 37 kg/m2 160.02 cm 25409.81 g Not Available [facility] 12/08/2022 10:44:57 Date Recorded Body mass index (BMI) Body height Body weight Provider Name and Address Organization Details Last Updated DateTime 10/06/2022 38 kg/m2 157.48 cm 92115.21 g Not Available [facility] 12/08/2022 10:44:57 Date Recorded Body height Provider Name an d Address Organization Details Last Updated DateTime 09/20/2022 160.02 cm Not Available [facility] 10:44:57 Date Recorded Body height Provider Name an d Address Organization Details Last Updated DateTime 10/20/2022 157.48 cm Not Available [facility] 10:44:57 Date Recorded Body height Provider Name an d Address Organization Details Last Updated DateTime 09/09/2023 157.48 cm MILTON Hester [facility] 09/09/2023 10:26:32 Social History Question Answer Notes LastModified by Organizat ion Details LastModified Time Tobacco Smoking Status Never Smoker Not Available [facility] 12/08/2022 10:42:11 What Is Your Level Of Alcohol Consumption? Occasional [id number] Information not available 12/08/2022 Sex: Unknown Functional Status None recorded. Mental Status None recorded. Family History Relationship Description Onset Age of this Age Resolved Age Notes LastModified by Organization Details LastModified Time Mother Family history of malignant neoplasm [id number] Not available 12/08/2022 10:42:19 Mother Hypertensive disorder [id number] Not available 12/08/2022 10:42:19 Mother Pulmonary embolism [id number] Not available 12/08/2022 10:42:19 Mother Diabetes mellitus [id number] Not available 12/08/2022 10:42:19 Father Hypertensive disorder [id number] Not available 12/08/2022 10:42:19 Father Diabetes mellitus [id number] Not available 12/08/2022 10:42:19 Medical History Condition Response BLINDNESS N KIDNEY STONES N CARPAL TUNNEL SYNDROME N MRSA N LUNG DISEASE/DISORDER N HISTORY OF DRUG ABUSE N RADIATION / CHEMOTHERAPY N COPD N ANKLE PAIN N SPORTS INJURY N BLOOD DISEASES N SCHIZOPHRENIA N SHINGLES N BOWEL PROBLEMS N DEPRESSION (INCLUDING POST ) N SHOULDER PAIN N STROKE/TIA N ULCERS N KNEE PAIN N BENIGN PROSTATIC HYPERPLASIA N OBESITY N GERD/NAUSEA N ANEURYSM N URINARY/BLADDER/KIDNEY PROBLEMS N CORONARY ARTERY DISEASE (CAD) N ADDICTION CONCERNS N USE OF BLOOD THINNERS N SKIN PROBLEMS N EMPHYSEMA N MUSCLE,JOINT OR BONE PROBLEMS N DVT N STOMACH ULCERS N BLOOD CLOTS N USE OF NSAIDS N CONCUSSION OR SPINAL TRAUMA N NEUROPATHY N AIDS/HIV N FRACTURES N HYPERTENSION N ELBOW PAIN N TOURETTE'S N Metal allergy N ANXIETY DISORDER N BLOOD TRANSFUSION N ANEMIA/BLOOD DISORDER N BIPOLAR DISORDER N BRONCHITIS N OSTEOARTHRITIS N TUBERCULOSIS N FOOT PROBLEM N HEART VALVE DISORDERS N SOFT TISSUE INJURY N ALLERGIES/HAYFEVER N INFECTIOUS DISEASE N HEART ARRHYTHMIA N INSOMNIA N RHEUMATOID ARTHRITIS N HIGH CHOLESTEROL / HYPERLIPIDEMIA N EDEMA N CHRONIC PAIN SYNDROME N CAROTID BLOCKAGE N BACK / NECK PROBLEMS N HAVE YOU BEEN HOSPITALIZED OR SE[facility] IN THE PAST YEAR ? N BURSITIS N HERNIATED DISC N DIALYSIS N FIBROMYALGIA N OSTEOPOROSIS N ARTHRITIS N NO SIGNIFICANT PAST MEDICAL HISTORY N PERIPHERAL NEUROPATHY N DIABETES, TYPE N HEARTBURN / REFLUX N HEPATITIS / LIVER DISEASE N GOUT N SLEEP DISORDER N ALZHEIMER'S DISEASE N HERPES N SEIZURES/EPILEPSY N HEADACHES/MIGRAINES N VASCULAR DISEASE N HIP PAIN N Blood Disorder N DIZZINESS N HEAD TRAUMA OR INJURY N HEART DISEASE/HEART PROBLEMS N MULTIPLE SCLEROSIS N CARDIAC ARRHYTHMIA N CANCER: SPECIFY N ANESTHESIA COMPLICATIONS N ATRIAL FIBRILLATION N AUTOIMMUNE DISEASE N Gynecological HistoryNo gynecological history recorded. Obstetrics History GPAL:G 0 P 0 0 0 0 Past Encounters Encounter ID Performer Location Encounter Start Date Encounter Closed Date Diagnosis/Indication Diagnosis SNOMED-CT Code Diagnosis ICD10 Code Diagnosis Note [id number] [facility] [place] [address] [place] [address] 01/28/2021 00:00:00 01/28/2021 16:25:34 [id number] [facility] [place] [address] [facility] [place] [address] 04/15/2021 00:00:00 04/15/2021 10:07:15 [id number] [facility] [place] [address] [facility] [place] [address] 07/15/2021 00:00:00 07/15/2021 10:26:38 [id number] [facility] [place] [address] [address] [place] [address] 09/23/2021 00:00:00 09/24/2021 10:30:57 [id number] [facility] [place] [address] [place] [address] 12/18/2021 00:00:00 12/20/2021 10:24:46 [id number] [facility] [place] [address] [place] [address] 01/04/2022 00:00:00 01/04/2022 15:02:26 [id number] [facility] [place] [address] [place] [address] 01/18/2022 00:00:00 01/18/2022 15:01:10 [id number] [facility] [place] [address] [place] [address] 03/19/2022 00:00:00 03/19/2022 10:32:52 [id number] [facility] [place] [address] [place] [address] 06/18/2022 00:00:00 06/22/2022 20:42:29 [id number] [facility] [place] [address] [place] [address] 09/20/2022 00:00:00 09/20/2022 15:40:28 [id number] [facility] [place] [address] [place] [address] 10/06/2022 00:00:00 10/06/2022 10:24:11 [id number] [facility] [place] [address] [place] [address] 10/20/2022 00:00:00 10/20/2022 10:27:21 [id number] WAYNE Waddell [facility] [place] [address] [place] [address] 09/09/2023 10:23:11 09/09/2023 11:26:42 History of left total knee replacement [id number] Z96.652 Health Concerns Section Related Observation LastModified by Organization Detai ls LastModified Time None Recorded Concern Status LastModified by Organization Details LastModified Time None Recorded Advance Directives Directive None Recorded Payers Encounter Date Sequence Insurance Name Policy Number Policy Jj Covered Member ID Jj Member ID Guarantor Name 09/09/2023 1 [employer] (MEDICARE REPLACEMENT HMO) [id number] Aide Lopez [id number] Aide Lopez OBGypeter Episode No OBEpisode recorded.
[2025-01-14 12:12] LABS: Alanine Aminotransferase 22 U/L (6-35); Albumin Level 4.2 g/dL (3.5-5.1); Alkaline Phosphatase 69 U/L (38-126); Anion Gap 9 mmol/L (4-12); Aspartate Amino Transferase 39 U/L (14-36); Bilirubin,Total 0.6 mg/dL (0.2-1.3); Blood Urea Nitrogen 20 mg/dL (7-17); Calcium 8.8 mg/dL (8.4-10.2); Carbon Dioxide 27 mmol/L (22-30); Chloride 104 mmol/L (98-107); Cholesterol 164 mg/dL (0-200); Estimated Glomerular Filt Rate > 60; Glucose 119 mg/dL (65-110); HDL Direct 39 mg/dL; Potassium 4.2 mmol/L (3.4-5.0); Sodium 140 mmol/L (137-145); Triglycerides 147 mg/dL (<150)
[2025-01-14 12:23] LABS: LDL Cholesterol Direct 93 mg/dL
[2025-01-14 12:57] LABS: Creatinine Urine 130.9 mg/dL
[2025-01-14 13:04] LABS: MALB Creatinine Ratio 7.1 mg/g (0-30); Microalbumin Urine Random 9.3 mg/L (0-16.7)
[2025-01-14 13:08] LABS: Vitamin D 25 Hydroxy 36.7 ng/mL
[2025-01-14 13:09] LABS: Vitamin B12 > 1000.0 pg/mL (239-931)
[2025-01-14 14:21] LABS: Hemoglobin A1C 6.4 % (<5.7)
== END 2025-01-14 09:10 | disposition home or self-care (01) ==
LOC: ANHGOSHLAB 09:10
PROVIDERS: PCP Family Medicine; Visit Provider Nurse Practitioner
DX: E78.2 Mixed hyperlipidemia (principal); E11.9 Type 2 diabetes mellitus without complications; E55.9 Vitamin D deficiency, unspecified; E53.8 Deficiency of other specified B group vitamins
CPT/HCPCS: 36415; 80053; 80061; 82043; 82306; 82607; 83036

== ENCOUNTER 2025-06-05 14:22 | Emergency (ER) | payer OTHER, SELFPAY ==
--- OUTSIDE RECORDS SUMMARY | 2024-03-24 16:30 | XMS_ITS ---
Author Organization [facility] [place] ([address]) Address [address] [place] [address] Care Team Providers Care Nuclear Plant Technical Advisor Name Role Phone Jena Aniyah Primary Care Provider UnavailJustina Olmedo Unavailable [phone] ZZ-Migration, Provider Unavailable Unavailab le [facility] Encounter Medications Medication SIG (Take, Route, Frequency, Duration) Notes Start Date End Date Status SIT (TRADITIONAL) VARIABLE PER SCHEDULE SC PER SCHEDULE; Duration: TO BE DETERMINED *Please review for potential replacement for e-prescription and drug interaction check* Active PriLOSEC OTC 20 MG 1 tab(s) orally once a day; Duration: 14 day(s) Active Lialda 1.2 GM 4 tab(s) orally once a day Active Singulair 10 MG 1 tab(s) orally once a day; Duration: 30 day(s) Active Aspirin 81 MG 1 TAB(S) ORALLY ONCE A DAY *Please review and pick correct strength-formulatio n from Medispan options. If intended option is not shown, discontinue and re-order from Quick Search* Active Breo Ellipta 200 MCG-25 MCG/INH 1 PUFF(S) INHALED ONCE A DAY; Duration: 90 DAYS *Please review and pick correct strength-formulatio n from Medispan options. If intended option is not shown, discontinue and re-order from Quick Search* Active ALBUTEROL (EQV-PROAIR HFA) 90 MCG/INH INSTILL 2 PUFFS BY MOUTH EVERY 6 HOURS NEEDED; Duration: 25 *Please review for potential replacement for e-prescription and drug interaction check* Active Azelastine HCl 137 MCG/SPRAY 2 spray(s) intranasally 2 times a day; Duration: 30 day(s) Active Encounters Encounter Location Date Provider Diagnosis [facility] [place] [address] 03/24/2024 Provider Parviz Allergic rhinitis due to pollen J30.1 Assessments Encounter Date Diagnosis (ICD Code) Assessment Notes Treatment Notes Treatment Clinical Notes Section Notes 03/24/2024 Allergic rhinitis due to pollen (ICD-10 - J30.1) Plan Of Treatment Medication Medication Name Sig Start Date Stop Date Notes SIT (TRADITIONAL) VARIABLE PER SCHEDULE SC PER SCHEDULE; Duration: TO BE DETERMINED *Please review for potential replacement for e-prescription and drug interaction check* Progress Notes * Aide LOPEZDOB:1955 (69 yo F)Acc No.[id number]:03/24/2024 Patient: Cal MENDOZA Aide Provider: Darshana Brock :1955 A ge:68 Y S ex:Female Date:03/24/2024 Address:[address] [place] [address] [id number] Pcp:Aniyah Bella Subjective: * Chief Complaints: * 1 . [facility] En[facility]. * Medical History: * Medications: T aking Azelastine HCl 137 MCG/SPRAY Solution 2 spray(s) intranasally 2 times a day , Taking Aspirin 81 MG TABLET 1 TAB(S) ORALLY ONCE A DAY , Notes to Pharmacist: *Please review and pick correct strength-formulation from [facility] options. If intended option is not shown, discontinue and re-order from Quick Search*, Taking Lialda 1.2 GM Tablet Delayed Release 4 tab(s) orally once a day , Taking PriLOSEC OTC 20 MG Tablet Delayed Release 1 tab(s) orally once a day , Taking Singulair 10 MG Tablet 1 tab(s) orally once a day , Taking ALBUTEROL (EQV-PROAIR HFA) 90 MCG/INH AEROSOL INSTILL 2 PUFFS BY MOUTH EVERY 6 HOURS NEEDED , Notes to Pharmacist: *Please review for potential replacement for e-prescription and drug interaction check*, Taking Breo Ellipta 200 MCG-25 MCG/INH POWDER 1 PUFF(S) INHALED ONCE A DAY , Notes to Pharmacist: *Please review and pick correct strength-formulation from Medispan options. If intended option is not shown, discontinue and re-order from Quick Search* Objective: * Vitals: Assessment: * Assessment: 1. A llergic rhinitis due to pollen - J30.1 (Primary) Plan: * Treatment: * Billing Information: * Visit Code: * Procedure Codes: * Electronic signature of Prov kamran DooleyZ-Migration on 06/05/2025 at 02:28 PM CDT Sign off status: Pending * Provider: Darshana san Migration Date: 0 03/24/2024 Generated for Leda das/Christiana/Lynn on: 06/05/2025 02:28 PM CDT
--- NOTE | ~2025-06-05 | XR_ITS ---
EXAMINATION: XR chest 2V 06/05/2025 15:20 INDICATION: Chest pain. Jaw pain TECHNIQUE:Frontal and lateral images of the chest were obtained. COMPARISON: 12/18/2018 FINDINGS: The lungs are clear. The cardiomediastinal silhouette is within normal limits. There are no pleural effusions. There is no pneumothorax suspected. 2 stable calcified granulomas in the right lung. IMPRESSION: 1: NO ACUTE CARDIOPULMONARY DISEASE. Reviewed, dictated and finalized at location Q.
--- NOTE | 2025-06-05 14:23 | ECG_ITS ---
Test Date: 2025-06-05 14:34:48 Measurements Intervals [place] Rate: 72 P: 37 TN: 170 QRS: -8 QRSD: 95 T: 27 QT: 390 QTc: 427 Interpretive Statements SINUS RHYTHM LEFT VENTRICULAR HYPERTROPHY BASELINE ARTIFACT- V6 BORDERLINE ECG No previous ECG available for comparison Electronically Signed On 06-05-2025 14:41:49 CDT by Travon Meaz D.O.
[2025-06-05 14:25] VITALS: BP 150/97; PULSE 78; RESP 16; TEMP 36.8; O2SAT 97
--- OUTSIDE RECORDS SUMMARY | 2025-06-05 14:29 | XMS_ITS | Clinical Summary ---
Author Organization [facility] Address [address] [place] [address] Care Team Providers Care Senior Systems Software Engineer Name Role Phone Aniyah Bella DO Primary Care Provider [phone]- [phone] Allergies Active Allergy Reactions Criticality Noted Date [...] mg total) by mouth nightly Active vitamin I49-tatjt acid 0.5-1 mg tablet Take by mouth [...] murmur GERD (gastroesophageal reflux disease) Ulcerative colitis Family History Medical History Relation Name Comments [...] 8:30 AM CDT Height 161.3 cm (5' 3.5) 03/13/2024 8:30 AM CDT Body Mass Index [...] season) 2024 01/02/2021, 12/05/2020 Influenza Vaccine (#1) 2025 3, 08/20/2021, 07/31/2020, Additional history exists Pneumococcal vaccine 65+ Completed 09/05/2023 Medical Devices Implanted Type Area Upper Extremity Surgeon Device Identifier Shelf Expiration Date Model / Serial / Lot Synthes Head Radial Elbow 6.5x22mm 10+3mm Head Height 09.405.263s - [id number] Implanted:Qty: 1 on 03/13/2024 by Jung Christy MD at [facility] Left: Elbow Synthes I [id number] 05/09/2026 09.405.263 S / / [id number] [employer] Suturetak Tigerwire 3mm 14.5mm 2 [place] Suture Fiberwire [id number] - [id number] Implanted:Qty: 1 on 03/13/2024 by Jung Christy MD at [facility] Left: Elbow [employer] [id number] 01/07/2027 ALICIA-1934BCF -2 / / [id number] [employer] Suturetak Tigerwire 3mm 14.5mm 2 [place] Suture Fiberwire [id number] - [id number] Implanted:Qty: 1 on 03/13/2024 by Jung Christy MD at [facility] Left: Elbow [employer] [id number] 05/09/2027 AR-1934BCF -2 / / [id number] Insurance [facility] Care Teams Senior Systems Software Engineer Relationship Specialty Start Date End Date Aniyah Bella DO [id number] [facility] [address] [address] PCP - General Family Medicine 03/06/24
[2025-06-05 14:50] VITALS: PULSE 72
[2025-06-05 14:52] LABS: Hematocrit 43.0 % (37.0-47.0); Hemoglobin 13.9 g/dL (12.0-15.0); Immature Granulocyte Percent A 0.4 % (0-0.5); Lymphocytes Absolute Auto 1.25 K/mm3 (0.9-3.2); Mean Corpuscular HGB Conc 32.3 g/dl (32-36); Mean Corpuscular Hemoglobin 29.4 pg (26-34); Mean Corpuscular Volume 91.1 fl (80-100); Nucleated Red Blood Cells Absolute Auto 0.000 K/mm3 (0.0-0.012); Nucleated Red Blood Cells Perc 0.0 % (0.0-0.2); Platelet Count Result 208 k/mm3 (150-375); Red Blood Count 4.72 M/mm3 (4.2-5.4); White Blood Count 5.0 K/mm3 (4.5-10.0)
[2025-06-05 15:03] LABS: Alanine Aminotransferase 25 U/L (6-35); Albumin Level 4.3 g/dL (3.5-5.1); Alkaline Phosphatase 56 U/L (38-126); Anion Gap 8 mmol/L (4-12); Aspartate Amino Transferase 31 U/L (14-36); Bilirubin,Total 0.6 mg/dL (0.2-1.3); Blood Urea Nitrogen 18 mg/dL (7-17); Calcium 9.2 mg/dL (8.4-10.2); Carbon Dioxide 25 mmol/L (22-30); Chloride 107 mmol/L (98-107); Estimated CRCL calculation 59 ml/min; Estimated Glomerular Filt Rate 59; Glucose 137 mg/dL (65-110); Lipase 23 U/L (23-300); Potassium 3.8 mmol/L (3.4-5.0); Sodium 140 mmol/L (137-145); Total Protein 7.2 g/dL (6.3-8.2)
[2025-06-05 15:06] LABS: INR 1.0; Partial Thromboplastin Time 25.7 Seconds (22.3-36.8); Prothrombin Time 12.8 Seconds (11.1-14.7)
[2025-06-05 15:14] LABS: Troponin I < 0.012 ng/mL (0.000-0.034)
--- OUTSIDE RECORDS SUMMARY | 2025-06-05 15:21 | XMS_ITS | Clinical Summary ---
Author Organization [facility] Address [address] [place] [address] Care Team Providers Care Health Insurance Adjuster Name Role Phone Aniyah Bella DO Primary Care Provider [phone]- [phone] Allergies Active Allergy Reactions Criticality Noted Date [...] mg total) by mouth nightly Active vitamin G35-obndl acid 0.5-1 mg tablet Take by mouth [...] Completed 09/05/2023 Medical Devices Implanted Type Area Afterschool Babysitter Device Identifier Shelf Expiration Date Model / Serial / Lot Synthes Head Radial Elbow 6.5x22mm 10+3mm Head Height 09.405.263s - [id number] Implanted:Qty: 1 on 03/13/2024 by Jung Christy MD at [facility] Left: Elbow Synthes I [id number] 05/09/2026 09.405.263 S / / [id number] [employer] Suturetak Tigerwire 3mm 14.5mm 2 [place] Suture Fiberwire [id number] - [id number] Implanted:Qty: 1 on 03/13/2024 by Jung Christy MD at [facility] Left: Elbow [employer] [id number] 01/07/2027 ALICIA-1934BCF -2 / / [id number] [employer] Suturetak Tigerwire 3mm 14.5mm 2 [place] Suture Fiberwire [id number] - [id number] Implanted:Qty: 1 on 03/13/2024 by Jung Christy MD at [facility] Left: Elbow [employer] [id number] 05/09/2027 AR-1934BCF -2 / / [id number] Insurance [facility] Care Teams Health Insurance Adjuster Relationship Specialty Start Date End Date Aniyah Bella DO [address] [facility] [address] [address] PCP - General Family Medicine 03/06/24
--- OUTSIDE RECORDS SUMMARY | 2025-06-05 15:22 | XMS_ITS | Patient Health Record ---
Author Organization [facility] ([address]) Address [address] [place] [address] Care Team Providers Care Extract Operator Name Role Phone Aniyah Bella Primary Care Provider Justina Morel Unavailable [phone] Allergies No Known Allergies Reason For Referral No Information Medications Medication SIG (Take, Route, Frequency, Duration) Notes Start Date End Date Status ASPIRIN 81 mg 1 tab(s) orally once a day Active LIALDA 1.2 g 4 tab(s) orally once a day Active AZELASTINE NASAL 137 mcg/inh 2 spray(s) intranasally 2 times a day; Duration: 30 day(s) Active Singulair 10 MG 1 tab(s) orally once a day; Duration: 30 day(s) Active BREO ELLIPTA 200 mcg-25 mcg/inh 1 puff(s) inhaled once a day; Duration: 90 days Active PRILOSEC OTC 20 mg 1 tab(s) orally once a day; Duration: 14 day(s) Active SINGULAIR 10 mg 1 tab(s) orally once a day; Duration: 30 day(s) Active SIT (TRADITIONAL) VARIABLE PER SCHEDULE SC PER SCHEDULE; Duration: TO BE DETERMINED *Please review for potential replacement for e-prescription and drug interaction check* Active PriLOSEC OTC 20 MG 1 tab(s) orally once a day; Duration: 14 day(s) Active Lialda 1.2 GM 4 tab(s) orally once a day Active Breo Ellipta 200 MCG-25 MCG/INH 1 PUFF(S) INHALED ONCE A DAY; Duration: 90 DAYS *Please review and pick correct strength-formulatio n from [employer] options. If intended option is not shown, discontinue and re-order from Quick Search* Active ALBUTEROL (EQV-PROAIR HFA) 90 MCG/INH INSTILL 2 PUFFS BY MOUTH EVERY 6 HOURS NEEDED; Duration: 25 *Please review for potential replacement for e-prescription and drug interaction check* Active Aspirin 81 MG 1 TAB(S) ORALLY ONCE A DAY *Please review and pick correct strength-formulatio n from [employer] options. If intended option is not shown, discontinue and re-order from Quick Search* Active Azelastine HCl 137 MCG/SPRAY 2 spray(s) intranasally 2 times a day; Duration: 30 day(s) Active Immunizations Vaccine Route Administration Date Status Comme nts Flucelvax Unknown 11/10/2019 Administered NOC Flucelevax Quadrivalent Unknown 07/22/2020 Refused Social History Tobacco Use: Social History Observation Description Date Details (start date - stop date) Never Smoker NA - NA Smoking Smart Form: Question Answer Notes Are you a: never smoker Problems Problem Type SNOMED Code ICD Code Onset Dates Problem Status W/U Status Risk Notes Problem Chronic allergic conjunctivitis (79858640) Other chronic allergic conjunctivitis (H10.45) Active confirmed Problem Allergic rhinitis caused by pollen (disorder) (46432414) Allergic rhinitis due to pollen (J30.1) Active confirmed Problem Allergic rhinitis (04317246) Other allergic rhinitis (J30.89) Active confirmed Problem Chronic sinusitis (63579705) Chronic sinusitis, unspecified (J32.9) Active confirmed Problem Dysphonia (disorder) (16208415) Other voice and resonance disorders (R49.8) Active confirmed Problem Allergic rhinitis caused by pollen (disorder) (13595445) Allergic rhinitis due to pollen (J30.1) Active confirmed Problem Allergic rhinitis caused by animal hair and dander (168652350798899) Allergic rhinitis due to animal (cat) (dog) hair and dander (J30.81) Active confirmed Problem Allergic rhinitis (16672974) Other allergic rhinitis (J30.89) Active confirmed Problem Uncomplicated severe persistent asthma (890554481) Severe persistent asthma, uncomplicated (J45.50) Active confirmed Problem Chronic allergic conjunctivitis (82898992) Other chronic allergic conjunctivitis (H10.45) Active confirmed Plan Of Treatment No Information Insurance Providers Payer Name Payer Address Payer Phone Subscriber Number Group Number Insured Name Patient Relationship to Insured Coverage Start Date Coverage End Date [employer] [address] [address] [place] [phone] [id number] Aide Lopez Self - patient is the insured Medical (General) History Medical History History ICD Code Ulcerative colitis, unspecified, without complications K51.90 Severe persistent asthma, uncomplicated J45.50 Chronic sinusitis, unspecified J32.9 Other allergic rhinitis J30.89 Allergic rhinitis due to pollen J30.1 Other chronic allergic conjunctivitis H1 0.45 Surgical History Surgery Date(Month/Year) Sinus surgery 2004 Knee surgery 1986 Rotator Cuff Surgery 2012 Hospitalization History Reason Date(Month/Year) Asthma exacerbation related to influenza 2018
--- NOTE | 2025-06-05 15:37 | ED.CHESTPAIN ---
HPI - Chest Pain General Chief Complaint: Chest Pain Stated Complaint: jaw pain, chest pain Time Seen by Provider: 06/05/25 15:16 History of Present Illness HPI narrative: This is a 69-year-old female history of factor 5 Leiden, hyperlipidemia who presents to the ED for chest pain. Patient states that she was painting her house earlier today and while she was reaching above, she had onset of lower sternal chest pain that radiated to her bilateral neck. She is unsure she started sweating issues already swelling from painting. Denies nausea, shortness of breath. No prior cardiac history. Related Data Home Medications ?Medication ?Instructions ?Recorded ?Confirmed ?Last Taken ?Type multivitamin 1 tablet PO DAILY 11/20/21 01/15/25 09/05/22 History omeprazole 20 mg capsule,delayed 20 mg PO BID PRN Indigestion 11/20/21 01/15/25 09/07/22 History release vit C 250 mg-vit E 90 mg-zinc 40 1 tablet PO BID 08/19/22 01/15/25 09/05/22 History mg-copper 1 [id number] capsule (PreserVision AREDS-2) aspirin 81 mg tablet,delayed 81 mg PO DAILY 03/08/24 01/15/25 Unknown History release acetaminophen 500 mg tablet 1,000 mg PO Q6H PRN Pain, Moderate 04/20/24 01/15/25 Unknown History cyanocobalamin (vitamin B-12) 1,000 mcg PO .every other day 05/03/24 01/15/25 Unknown History 1,000 mcg capsule loratadine 10 mg tablet (Claritin) 10 mg PO DAILY 05/03/24 01/15/25 Unknown History Allergies Allergy/AdvReac Type Severity Reaction Status Date / Time codeine AdvReac Intermediate Nausea and Verified 06/05/25 14:27 Vomiting NSAIDS (Non-Steroidal AdvReac Intermediate Gastrointestinal Verified 06/05/25 14:27 Anti-Inflamma Upset Review of Systems Review of Systems: Gen.: Denies fevers or chills Eyes: Denies eye pain or visual change ENT: Denies congestion Respiratory: Denies shortness of breath or cough CV: As per HPI GI: Denies abdominal pain nausea, emesis or diarrhea denies burning, urgency, frequency or hematuria Musculoskeletal: Denies back pain or muscle pain Neuro: Denies numbness, tingling, weakness or focal weakness Skin: Denies rash Except as documented, all other systems reviewed and negative [facility] Past Medical History Medical History PONV (postoperative nausea and vomiting) Factor V Leiden Osteoarthritis Chronic GERD COVID-19 Pain in left knee Pain in right knee Left knee pain Metabolic syndrome Mixed hyperlipidemia Ulcerative colitis, unspecified Asthma exacerbation Encounter for dual-energy x-ray absoptiometry review Hepatitis C antibody test negative Surgical History Surgical History Status post total right knee replacement (12/07/21) H/O arthroscopy (~2011) left shoulder H/O colonoscopy Family History Family History Mother Diabetes mellitus Family history of malignant neoplasm of breast in first degree relative Family history of malignant neoplasm of thyroid Grandparent Diabetes mellitus Cerebrovascular accident Father Family history of elevated blood lipids Family history of coronary artery disease Family history of malignant neoplasm of urinary bladder Social History Social History Social History: Caffeine-coffee Smoking status: Former smoker Second hand tobacco smoke exposure: No Additional smoking assessment comments: DENIES ANY FORM OF TOBACCO USE Alcohol intake: current Alcohol use details: 4-5 DRINKS PER MONTH Substance use: never Substance use type: does not use Do You Feel Safe in your Home?: Yes Lack of Transportation: No Lack of Food: Never True Current Housing: I Have Housing Concerned About Future Housing: No Difficulty Paying Gas/Electric Bills: No Difficulty Paying for Meds: No Currently Unemployed: No Education: High School Diploma/GED Difficulty w/ Childcare or Family Care: No Living arrangements: with family Gender identity (if verbalized by the patient): Female Spiritual care concerns: No Exam Narrative: APPEARANCE: No acute distress, nontoxic, resting in bed EYES: EOMI HEENT: Normocephalic, atraumatic, OMM RESPIRATORY: No respiratory distress Clear to auscultation bilaterally with no rhonchi wheezing or rales. CARDIOVASCULAR: Regular rate and rhythm without murmurs rubs or gallops. ABDOMINAL: Soft, nontender, nondistended, no rebound or guarding MUSCULOSKELETAl: Moves all extremities. No clubbing, cyanosis or edema. NEURO: Awake and alert. Following commands, speech normal, no focal deficits SKIN:: Warm, dry. No rashes lesions or abrasions PSYCHIATRIC: Normal affect/mood, Course Vital Signs Vital signs: Vital Signs Temperature 98.2 F 06/05/25 14:25 Pulse Rate 78 06/05/25 14:25 Respiratory Rate 16 06/05/25 14:25 Blood Pressure 150/97 H 06/05/25 14:25 Pulse Oximetry 97 06/05/25 14:25 Temperature 98.2 F 06/05/25 14:25 Pulse Rate 67 06/05/25 18:04 Respiratory Rate 20 06/05/25 18:04 Blood Pressure 146/74 H 06/05/25 18:04 Pulse Oximetry 97 06/05/25 18:04 MDM - Chest Pain MDM Narrative Medical decision making narrative: 69-year-old female who presented to the ED for chest pain neck pain. Initial evaluation, patient is in no acute distress, afebrile, hemodynamically stable. Her symptoms had completely resolved prior to presentation to the ED. no prior cardiac history. Heart and lungs clear. Abdomen soft nontender. CBC and CMP were without significant abnormalities. Initial troponin negative. Repeat troponin negative. Chest x-ray showed no acute process. EKG showed no concerning findings. Heart score is 3. Do believe the patient is safe discharge at this time. She will require further cardiac evaluation however. She was given referral to Dr. Gonzalez, cardiology, for further evaluation. Patient was agreeable to this plan. Given strict return precautions. Differential Diagnosis Differential diagnosis: Likely atypical chest pain, costochondritis and chest pain Medical Records Data Attestation: I reviewed the patient's medical records. Lab Data Attestation: I reviewed the patient's lab results. 06/05/25 14:45 06/05/25 14:45 Labs: Lab Results 06/05/25 06/05/25 Range/Units 14:45 17:11 WBC 5.0 (4.5-10.0) K/mm3 RBC 4.72 (4.2-5.4) M/mm3 Hgb 13.9 (12.0-15.0) g/dL Hct 43.0 (37.0-47.0) % MCV 91.1 (80-100) fl MCH 29.4 (26-34) pg MCHC 32.3 (32-36) g/dl RDW 12.7 (11.5-14.5) % Plt Count 208 (150-375) k/mm3 MPV 9.5 (7.4-10.4) fl Immature Gran % (Auto) 0.4 (0-0.5) % Neut % (Auto) 61.2 (45.5-73.1) % Lymph % (Auto) 25.0 (18.3-44.2) % Sutton % (Auto) 10.0 H (2.6-8.5) % Eos % (Auto) 2.8 (0-4.4) % Baso % (Auto) 0.6 (0.2-1.2) % Lymph # (Auto) 1.25 (0.9-3.2) K/mm3 Sutton # (Auto) 0.5 (0.1-0.6) K/mm3 Eos # (Auto) 0.1 (0-0.3) K/mm3 Baso # (Auto) 0.0 (0.0-0.1) K/mm3 Abs Immat Gran (auto) 0.02 (0.00-0.031) K/mm3 Absolute Neuts (auto) 3.1 (1.3-6.7) K/mm3 Absolute Nucleated RBC 0.000 (0.0-0.012) K/mm3 Nucleated RBC % 0.0 (0.0-0.2) % PT 12.8 (11.1-14.7) Seconds INR 1.0 APTT 25.7 (22.3-36.8) Seconds Sodium 140 (137-145) mmol/L Potassium 3.8 (3.4-5.0) mmol/L Chloride 107 (98-107) mmol/L Carbon Dioxide 25 (22-30) mmol/L Anion Gap 8 (4-12) mmol/L BUN 18 H (7-17) mg/dL Creatinine 0.95 (0.7-1.0) mg/dL Estim Creat Clear Calc 59 ml/min Estimated GFR 59 (59 - ) Glucose 137 H (65-110) mg/dL Calcium 9.2 (8.4-10.2) mg/dL Total Bilirubin 0.6 (0.2-1.3) mg/dL AST 31 (14-36) U/L ALT 25 (6-35) U/L Alkaline Phosphatase 56 (38-126) U/L Troponin I < 0.012 < 0.012 (0.000-0.034) ng/mL Total Protein 7.2 (6.3-8.2) g/dL Albumin 4.3 (3.5-5.1) g/dL Lipase 23 (23-300) U/L Imaging Data Radiologist's impression: Impressions Chest X-Ray 06/05/25 15:26 IMPRESSION: 1: NO ACUTE CARDIOPULMONARY DISEASE. ECG Data EKG #1: ECG completion date: 06/05/25 ECG completion time: 14:34 Interpretation: Normal sinus rhythm rate of 72, axis, left ventricular hypertrophy, if no acute ST or T-wave changes Discharge Plan Discharge Clinical Impression: Atypical chest pain Patient Disposition: Home Condition: Stable Instructions: Antibiotic Form, Chest Pain (DC) Additional Instructions: Years in the ED today for chest pain. Labs, EKG, chest x-ray were reassuring and showed no evidence of heart damage at this time. Her symptoms were potentially concerning for a cardiac event. Because of this, you should be evaluated by hot die picker. He was given a referral to Dr. Gonzalez for further evaluation. Color office tomorrow. Return to the ED for any new or worsening symptoms. Patient Language: Macedonian Prescriptions: No Action acetaminophen 500 mg tablet 1,000 mg PO Q6H PRN (Reason: Pain, Moderate) aspirin 81 mg tablet,delayed release (DR/EC) 81 mg PO DAILY loratadine [Claritin] 10 mg tablet 10 mg PO DAILY cyanocobalamin (vitamin B-12) 1,000 mcg capsule 1,000 mcg PO .every other day multivitamin Tablet 1 tablet PO DAILY omeprazole 20 mg Capsule,Delayed Release(Dr/Ec) 20 mg PO BID PRN (Reason: Indigestion) Patient Comments: TAKES ONCE A DAY PreserVision AREDS-2 250-90-40-1 mg Capsule 1 tablet PO BID albuterol sulfate 90 mcg/actuation HFA aerosol inhaler 1 puff inhalation Q4H Qty: 9 5RF pravastatin 20 mg tablet See Rx Instructions .ROUTE .COMPLEX Qty: 90 1RF Dose Instruction: TAKE 1 TABLET BY MOUTH ONCE DAILY AT BEDTIME Rx Instructions: TAKE 1 TABLET BY MOUTH ONCE DAILY AT BEDTIME fluticasone furoate-vilanterol [Breo Ellipta] 200-25 mcg/dose blister with device See Rx Instructions .ROUTE .COMPLEX Qty: 60 5RF Dose Instruction: INHALE 1 PUFF BY MOUTH IN THE MORNING Rx Instructions: INHALE 1 PUFF BY MOUTH IN THE MORNING Follow-up/Referrals: Terence Gonzalez MD [Physician, Cardiology] Aniyah Bella DO [Primary Care Provider, Family Practice]
[2025-06-05 16:33] VITALS: BP 135/67; PULSE 69; RESP 20; O2SAT 96
[2025-06-05 18:04] VITALS: BP 146/74; PULSE 67; RESP 20; O2SAT 97
[2025-06-05 18:42] LABS: Troponin I < 0.012 ng/mL (0.000-0.034)
[2025-06-05 19:04] VITALS: BP 142/74; PULSE 87; RESP 16; O2SAT 99
== END 2025-06-05 19:05 | disposition home or self-care (01) ==
PROVIDERS: Emergency Provider Student in an Organized Health Care Education/Training Program; PCP Family Medicine
DX: R07.89 Other chest pain (principal); J45.909 Unspecified asthma, uncomplicated; E78.2 Mixed hyperlipidemia; D68.51 Activated protein C resistance; K51.90 Ulcerative colitis, unspecified, without complications; K21.9 Gastro-esophageal reflux disease without esophagitis; M19.90 Unspecified osteoarthritis, unspecified site; Z96.651 Presence of right artificial knee joint; Z86.16 Personal history of COVID-19; Z87.891 Personal history of nicotine dependence; I51.7 Cardiomegaly
CPT/HCPCS: 36415; 71046; 80053; 83690; 84484; 85025; 85610; 85730; 93005; 99284

== ENCOUNTER 2025-06-06 11:33 | Outpatient (CLI) | payer OTHER, SELFPAY ==
--- NOTE | ~2025-06-06 | MM_ITS ---
EXAMINATION: screening [facility] w haley INDICATION: Asymptomatic, referred for screening mammogram COMPARISON: 06/05/2024 through 10/13/2018 TECHNIQUE: Digital Breast Tomosynthesis CC, MLO views of Both breasts were obtained with computer-aided detection to assist in interpretation of the study. FINDINGS: There are scattered areas of fibroglandular density. There are 2 adjacent masses in the central retroareolar left breast at middle third. Elsewhere, there are no mammographic features of malignancy. IMPRESSION: 1. Left breast masses. 2. No evidence of malignancy in the Right breast. RECOMMENDATION: Left breast Diagnostic mammogram with true lateral, appropriate spot compression views and an ultrasound if needed. BI-RADS Category 0: Incomplete: Needs additional imaging evaluation. Reviewed, dictated and finalized at location B. IMPRESSION: 1. Left breast masses. 2. No evidence of malignancy in the Right breast. RECOMMENDATION: Left breast Diagnostic mammogram with true lateral, appropriate spot compressio n views and an ultrasound if needed. BI-RADS Category 0: Incomplete: Needs additional imaging evaluation.
== END 2025-06-06 11:34 | disposition home or self-care (01) ==
LOC: MICIMG 11:34
PROVIDERS: PCP Family Medicine; Visit Provider Family Medicine
DX: Z12.31 Encounter for screening mammogram for malignant neoplasm of breast (principal); R92.8 Other abnormal and inconclusive findings on diagnostic imaging of breast
CPT/HCPCS: 77063; 77067

== ENCOUNTER 2025-07-02 08:05 | Outpatient (CLI) | payer OTHER, SELFPAY ==
--- OUTSIDE RECORDS SUMMARY | 2024-03-24 16:30 | XMS_ITS ---
Author Organization [facility] [place] ([address]) Address [address] [place] [address] Care Team Providers Care Manager Marketing Communications Name Role Phone Jena Aniyah Primary Care Provider UnavailJustina Olmedo Unavailable [phone] ZZ-Migration, Provider Unavailable Unavailab le [facility] Encounter Medications Medication SIG (Take, [...] Active Encounters Encounter Location Date Provider Diagnosis [facility] [place] [address] [place] [place] [address] 03/24/2024 Provider Parviz Allergic rhinitis due to [...] Notes * Aide LOPEZDOB:1955 (69 yo F)Acc No.[id number]:03/24/2024 Patient: Cal MENDOZA Aide Provider: Darshana Brock :1955 A ge:68 Y S ex:Female Date:03/24/2024 Address:[address] [place] [address] [id number] Pcp:Aniyah Bella Subjective: * Chief Complaints: * 1 . [facility]. * Medical History: * Medications: T aking Azelastine HCl 137 MCG/SPRAY Solution 2 spray(s) intranasally 2 times a day , Taking Aspirin 81 MG TABLET 1 TAB(S) ORALLY ONCE A DAY , Notes to Pharmacist: *Please review and pick correct strength-[facility]ulation from [facility]. If intended option is not [...] Electronic signature of Prov kamran MARY-Migration on 07/02/2025 at 08:21 AM CDT Sign off status: Pending * Provider: Darshana san Migration Date: 03/24/2024 Generated for Leda das/Christiana/Lynn on: 07/02/2025 08:21 AM CDT
--- OUTSIDE RECORDS SUMMARY | 2025-07-01 13:30 | XMS_ITS | Encounter Summary ---
Author Organization [facility] Healthcare Address [address] [place] [address] Care Team Providers Care Digester Operator Name Role Phone Aniyah Bella DO Primary Care Provider [phone] Reason for Referral * Cardiology (Routine) - Authorized Specialty Diagnoses / Procedures Referred By Contac t Referred To Contact Diagnoses Cardiac murmur Other chest pain Procedures Transthoracic Echo (TTE) Complete W Doppler/CF Rickie Atkins MD [address] [address] Phone: tel: fax: [facility] Medical Group Cardiology [address] [place] [address] Phone: tel: fax: Referral ID Status Reason Start Date Expiration Date V isits Requested Visits Authorized [id number] Authorized 07/01/2025 07/31/2026 1 1 Reason for Visit * Reason Comments New Patient * Consultation (Routine) - Authorized Specialty Diagnoses / Procedures Referred By Contac t Referred To Contact Cardiology Diagnoses Chest pain, unspecified type Aniyah Bella DO Phone: tel: fax: [facility] Medical [facility] Cardiology [address] [place] [address] Phone: tel: fax: Referral ID Status Reason Start Date Expiration Date Visits Requested Visits Authorized [id number] Authorized Specialty Services Required 06/13/2025 07/13/2026 12 12 Encounter Details Date Type Department Care Team (Late st Contact Info) Description 07/01/2025 1:30 PM CDT Office Visit [facility] Cardiology [address] [place] [address] Rickie Atkins MD [address] [facility] [address] [address] Chest pain, unspecified type (Primary Dx); Cardiac murmur; Mixed hyperlipidemia; Other chest pain Social History Tobacco Use Types Packs/Day Years Used Date Smoking Tobacco: Never Smokeless Tobacco: Never AUDIT-C Answer Date Recorded Q1: How often [...] on file Sexual Orientation Not on file documented as of this encounter Last Filed Vital Signs Vital Sign Reading Time Taken Comments Blood Pressure 116/78 07/01/2025 1:41 PM CDT Pulse 74 07/01/2025 1:41 PM CDT Temperature - - Respiratory Rate 16 07/01/2025 1:41 PM CDT Oxygen Saturation 99% 07/01/2025 1:41 PM CDT Inhaled Oxygen Concentration - - Weight 99.3 kg (219 lb) 07/01/2025 1:41 PM CDT Height 160 cm (5' 3) 07/01/2025 1:41 PM CDT Body Mass Index 38.79 07/01/2025 1:41 PM CDT documented in this encounter Plan of Treatment Scheduled Orders Name Type Priority Associated Diagnoses Order Schedule Transthoracic Echo (TTE) Complete W Doppler/CF Echocardiography Routine Cardiac murmur Other chest pain Expected: 07/01/2025, Expires: 09/30/2026 documented as of this encounter Procedures Procedure Name Priority Date/Time Associated Diagnosis Comments POCT LIPID PANEL Routine 07/01/2025 1:35 PM CDT Mixed hyperlipidemia ECG 12-LEAD Routine 07/01/2025 Chest pain, unspecified type documented in this encounter Results * POCT lipid panel (07/01/2025 1:35 PM CDT) Cholesterol, POC 162 <200 MG/DL HDL, POC 45 >=40 mg/dL Triglycerides, POC 78 <=149 mg/dL LDL Cholesterol POC 101 <=129 mg/dL Chol/HDL Ratio, POC 2.2 NONE Non-HDL Cholesterol, POC 117 NONE mg/dL Cholesterol Total, POC 162 30 - 199 mg/dL Capillary blood 07/01/2025 1 :35 PM CDT us Rickie Atkins MD POINT OF CARE TEST O RDERABLES Final Result * ECG 12 lead (07/01/2025) 07/01/2025 us Rickie Atkins MD ECG ORDERABLES Esperanza l Result documented in this encounter Visit Diagnoses Diagnosis Chest pain, unspecified type- Primary Cardiac murmur Undiagnosed cardiac murmurs Mixed hyperlipidemia documented in this encounter Orders Outpatient Referral Count Last Ordered Date Fir st Ordered Date AMB REFERRAL TO CARDIOLOGY 1 07/01/2025 documented in this encounter Care Teams Digester Operator Relationship Specialty Start Date End Date Aniyah Bella DO PCP - General Family Medicine 03/06/24 documented as of this encounter
--- OUTSIDE RECORDS SUMMARY | 2025-07-02 08:21 | XMS_ITS | Patient Health Record ---
Author Organization [facility] [facility] ([address]) Address [address] [place] [address] Care Team Providers Care Redevelopment Specialist Name Role Phone Aniyah Bella Primary Care Provider Justina Morel Unavailable [phone] Allergies No Known Allergies Reason For Referral [...] review and pick correct strength-formulatio n from [employer] options. If intended option is not shown, discontinue and re-order from Quick Search* Active ALBUTEROL (EQV-PROAIR HFA) 90 MCG/INH INSTILL 2 PUFFS BY MOUTH EVERY 6 HOURS NEEDED; Duration: 25 *Please review for potential replacement for e-prescription and drug interaction check* Active Aspirin 81 MG 1 TAB(S) ORALLY ONCE A DAY *Please review and pick correct strength-formulatio n from [employer] options. If intended option is not shown, [...] Status Risk Notes Problem Chronic allergic conjunctivitis (52594325) Other chronic allergic conjunctivitis (H10.45) Active confirmed Problem Allergic rhinitis caused by pollen (disorder) (51514521) Allergic rhinitis due to pollen (J30.1) Active confirmed Problem Allergic rhinitis (10555344) Other allergic rhinitis (J30.89) Active confirmed Problem Chronic sinusitis (33400887) Chronic sinusitis, unspecified (J32.9) Active confirmed Problem Dysphonia (disorder) (52873212) Other voice and resonance disorders (R49.8) Active confirmed Problem Allergic rhinitis caused by pollen (disorder) (38081257) Allergic rhinitis due to pollen (J30.1) Active confirmed Problem Allergic rhinitis caused by animal hair and dander (122730076145861) Allergic rhinitis due to animal (cat) (dog) hair and dander (J30.81) Active confirmed Problem Allergic rhinitis (94616392) Other allergic rhinitis (J30.89) Active confirmed Problem Uncomplicated severe persistent asthma (936109063) Severe persistent asthma, uncomplicated (J45.50) Active confirmed Problem Chronic allergic conjunctivitis (22742807) Other chronic allergic conjunctivitis (H10.45) Active confirmed Plan Of Treatment No Information Insurance Providers Payer Name Payer Address Payer Phone Subscriber Number Group Number Insured Name Patient Relationship to Insured Coverage Start Date Coverage End Date [employer] [address] [address] [place] [phone] [id number] Aide Lopez Self - patient is [...]
--- OUTSIDE RECORDS SUMMARY | 2025-07-02 08:21 | XMS_ITS | Clinical Summary ---
Author Organization [facility] Address [address] [place] [address] Care Team Providers Care Preschool Head Teacher Name Role Phone Aniyah Bella DO Primary Care Provider +1- [phone] Allergies Active Allergy Reactions Criticality Noted Date Comments Codeine Other (See comments),Nausea & Vomiting High 03/07/2024 codeine Nsaids (Non-Steroidal Anti-Inflammatory Drug) Other (See comments),Stomach upset High 03/08/2024 ? has colitis Medications aspirin 81 mg enteric coated tablet [...] mg total) by mouth nightly Active vitamin Z14-colyc acid 0.5-1 mg tablet Take by mouth [...] for pain 45 tablet 03/13/20 24 Active Additional Information Patient not taking.Reported on 07/01/2025 Active Problems Problem Noted Date Diagnosed Date Cardiac murmur 07/01/2025 Mixed hyperlipidemia 07/01/2025 Other chest pain 07/01/2025 Left elbow pain 03/07/2024 Closed displaced fracture of head of left radius 03/07/2024 Encounters Date Type Department Care Team Description 07/01/2025 1:30 PM CDT Office Visit [facility] Cardiology [address] [facility] [address] [place] [id number] Rickie Atkins MD Chest pain, unspecified type (Primary Dx); Cardiac murmur; Mixed hyperlipidemia; Other chest pain from Last 3 Months Surgical History Surgery Date Site/Laterality Comments KNEE [...] Pulse 74 07/01/2025 1:41 PM CDT Temperature 36.1 C (97 F) 03/13/2024 2:45 PM CDT Respiratory Rate 16 07/01/2025 1:41 PM CDT Oxygen Saturation 99% 07/01/2025 1:41 PM CDT Inhaled Oxygen Concentration - - Weight 99.3 kg (219 lb) 07/01/2025 1:41 PM CDT Height 160 cm (5' 3) 07/01/2025 1:41 PM CDT Body Mass Index 38.79 07/01/2025 1:41 PM CDT Plan of Treatment Health Maintenance Due Date Last Done Comments Breast Cancer Screening-Mammogram 1955 Colon Cancer Screening-Colonoscopy 1955 Depression Screening 1955 Fall Risk Assessment 1955 Hepatitis C Screening 1955 Osteoporosis Screening-Bone Density Scan 1955 Hepatitis B Screening 1975 Zoster Vaccine (1 of 2) 2007 Well Visit 65+ 2022 DTaP/Tdap/Td Vaccine (2 - Td or Tdap) 05/25/2023 05/25/2013 Covid-19 Vaccine (3 - 2024-2 6 season) 2025 01/02/2021, 12/05/2020 Influenza Vaccine (#1) 2025 , 09/05/2023, 08/20/2021, Additional history exists Pneumococcal vaccine 65+ Completed 09/05/2023 Medical Devices Implanted Type Area Brass Pickler Device Identifier Shelf Expiration Date Model / Serial / Lot Synthes Head Radial Elbow 6.5x22mm 10+3mm Head Height 09.405.263s - [id number] Implanted:Qty: 1 on 03/13/2024 by Jung Christy MD at [facility] Left: Elbow Synthes I [id number] 05/09/2026 09.405.263 S / / [id number] [employer] Suturetak Tigerwire 3mm 14.5mm 2 Etoile Suture Fiberwire [id number] - [id number] Implanted:Qty: 1 on 03/13/2024 by Jung Christy MD at [facility] Left: Elbow [employer] [id number] 01/07/2027 [id number] -2 / / [id number] [employer] Suturetak Tigerwire 3mm 14.5mm 2 E[place]ile Suture Fiberwire [id number] - [id number] Implanted:Qty: 1 on 03/13/2024 by Jung Christy MD at [facility] Left: Elbow [employer] [id number] 05/09/2027 [id number]-[id number] -2 / / [id number] Procedures Procedure Name Priority Date/Time Associated Diagnosis Comments POCT LIPID PANEL Routine 07/01/2025 1:35 PM CDT Mixed hyperlipidemia ECG 12-LEAD Routine 07/01/2025 Chest pain, unspecified type from Last 3 Months Results * POCT lipid panel (07/01/2025 1:35 [...] Atkins MD ECG ORDERABLES Esperanza l Result from Last 3 Months Insurance [employer] Care Teams Preschool Head Teacher Relationship Specialty Start Date End Date Aniyah Bella DO PCP - General Family Medicine 03/06/24
[2025-07-02 12:04] LABS: MALB Creatinine Ratio 9.4 mg/g (0-30)
[2025-07-02 12:09] LABS: Alanine Aminotransferase 16 U/L (6-35); Albumin Level 4.1 g/dL (3.5-5.1); Alkaline Phosphatase 56 U/L (38-126); Anion Gap 8 mmol/L (4-12); Aspartate Amino Transferase 28 U/L (14-36); Bilirubin,Total 0.8 mg/dL (0.2-1.3); Blood Urea Nitrogen 18 mg/dL (7-17); Calcium 9.1 mg/dL (8.4-10.2); Carbon Dioxide 24 mmol/L (22-30); Chloride 106 mmol/L (98-107); Cholesterol 169 mg/dL (0-200); Estimated Glomerular Filt Rate > 60; Glucose 124 mg/dL (65-110); HDL Direct 37 mg/dL; Potassium 4.1 mmol/L (3.4-5.0); Sodium 138 mmol/L (137-145); Total Protein 7.0 g/dL (6.3-8.2); Triglycerides 104 mg/dL (<150)
[2025-07-02 13:34] LABS: Hemoglobin A1C 6.3 % (<5.7)
== END 2025-07-02 08:06 | disposition home or self-care (01) ==
PROVIDERS: PCP Family Medicine; Visit Provider Nurse Practitioner
DX: E11.9 Type 2 diabetes mellitus without complications (principal); E78.2 Mixed hyperlipidemia; E55.9 Vitamin D deficiency, unspecified; E53.8 Deficiency of other specified B group vitamins
CPT/HCPCS: 36415; 80053; 80061; 82043; 82306; 83036

== ENCOUNTER 2025-07-03 10:50 | Outpatient (CLI) | payer OTHER, SELFPAY ==
--- OUTSIDE RECORDS SUMMARY | 2024-03-24 16:30 | XMS_ITS ---
Author Organization [facility] [place] ([address]) Address [address] [place] [address] Care Team Providers Care Plating Tank Operator Name Role Phone Jena Aniyah Primary Care Provider UnavailJustina Olmedo Unavailable [phone] ZZ-Migration, Provider Unavailable Unavailab le [facility] Encounter Medications Medication SIG (Take, Route, [...] Active Encounters Encounter Location Date Provider Diagnosis [facility] [place] [address] [address] 03/24/2024 Provider Parviz Allergic rhinitis due to [...] Notes * Aide LOPEZDOB:1955 (69 yo F)Acc No.[id number]:03/24/2024 Patient: Cal MENDOZA Aide Provider: Darshana Brock :1955 A ge:68 Y S ex:Female Date:03/24/2024 Address:[address] [place] [address] [id number] Pcp:Aniyah Bella Subjective: * Chief Complaints: * [facility] . [facility] * Medical History: * Medications: T aking Azelastine HCl 137 MCG/SPRAY Solution 2 spray(s) intranasally 2 times a day , Taking Aspirin 81 MG TABLET 1 TAB(S) ORALLY ONCE A DAY , Notes to Pharmacist: *Please review and pick correct strength-formulation from [facility] options. If intended option is not shown, [...] Codes: * Electronic signature of Prov kamran MARY-Migration on 07/03/2025 at 11:42 AM CDT Sign off status: Pending * Provider: Darshana san Migration Date: 03/24/2024 Generated for Leda das/Christiana/Lynn on: 0 07/03/2025 11:42 AM CDT
--- OUTSIDE RECORDS SUMMARY | 2025-07-02 09:15 | XMS_ITS | Encounter Summary ---
Author Organization [facility] Address [address] [place] [address] Care Team Providers Care Nursing Scheduler Name Role Phone Aniyah Bella DO Primary Care Provider +1- [phone] Reason for Visit * Cardiology (Routine) - Closed Specialty Diagnoses / Procedures Referred By Contprosper t Referred To Contact Diagnoses Cardiac murmur Other chest pain Procedures Transthoracic Echo (TTE) Complete W Doppler/CF Santiago Atkins MD [address] [address] Phone: tel: fax: [facility]iology [address] [place] [address] Phone: tel: fax: Referral ID Status Reason Start Date Expiration Date Visits Re quested Visits Authorized [id number] Closed 07/01/2025 07/31/2026 1 1 Encounter Details Date Type Department Care Team (Latest Contact Info) Description 07/02/2025 9:15 AM CDT Ancillary Procedure [facility] [address] [place] [address] Cardiac murmur; Other chest pain Social History Tobacco Use [...] on file documented as of this encounter Plan of Treatment Not on file documented as of this encounter Procedures Procedure Name Priority Date/Time Associated Diagnosis Comments TRANSTHORACIC ECHO (TTE) COMPLETE W DOPPLER/CF WO CONTRAST Routine 07/02/2025 10:11 AM CDT Cardiac murmur Other chest pain documented in this encounter Results * TRANSTHORACIC ECHO (TTE) COMPLETE W DOPPLER/CF WO CONTRAST (07/02/2025 10:11 AM CDT) EF Mod BP 62 % CONS SCIMAGE Anatomical Region Laterality Modality Ultrasound 07/02/2025 9:13 AM CDT Narrative 07/02/2025 12:07 PM CDT [facility] [address] [facility] [address] [address] [address] [facility] [address], [place] [address] P:[phone] P:[phone] Echocardiographic Report Patient Name: USAMA LOPEZ D : 1955 Study Date: 07/02/2025 9:13:25 AM Sex: F Chemistry Technician: Emily Kim)(CT), [facility] Location: [place] Ref Provider: SANTIAGO ATKINS Height(Cm): 160 BSA: 2.1 Weight(Kg): 99.3 Heart Rate: 66 BP: 116 / 78 Quality: Good Order Provider: SANTIAGO ATKINS PROCEDURES: Echocardiographic Report: Transthoracic echocardiogram with complete 2D, M-Mode, and color Doppler examination. With Strain Analysis. INDICATIONS: R01.1 Cardiac murmur, unspecified and R07.89 Other chest pain. MEASUREMENTS: 2D/MM Value Range Doppler Value Range EF Mod BP 62 % [ 54 - 74 ] SALLY Vmax 1.85 cm2 [ 2.00 - 4.00 ] LV GLS -15.46 % AV Mean PG 9 mmHg LVIDd 2D 3.78 cm [ 3.80 - 5.20 ] AV Peak Deshaun 1.99 m/s [ 1.00 - 1.70 ] LVIDs 2D 2.49 cm [ 2.20 - 3.50 ] AV Peak PG 16 mmHg LVPWd 2D 1.11 cm [ 0.60 - 0.90 ] AV VTI 44.08 cm IVSd 2D 1.17 cm [ 0.60 - 0.90 ] LVOT Diam 2.01 cm [ 1.70 - 2.10 ] AoR Diam 2D 3.05 cm [ 2.70 - 3.70 ] LVOT Peak Deshaun 1.16 m/s [ 0.70 - 1.10 ] LA Volume 32.87 ml [ 22.00 - 52.00 ] LVOT VTI 27.18 cm LA Volume Index 16 cc/m2 [ 16 - 28 ] MV E Peak Deshaun 0.68 m/s [ 0.60 - 1.30 ] RA Volume 16.14 ml MV A Peak Deshaun 0.94 m/s [ 1.00 - 1.20 ] MV Decel Time 220 msec [ 104 - 258 ] PV Peak Deshaun 1.03 m/s [ 0.40 - 0.80 ] RV S` 10.56 mmHg Lateral E` 0.11 m/s [ 0.10 - 0.15 ] Septal E` 0.08 m/s [ 0.08 - 0.15 ] E` 0.09 m/s E/E` 7 Tapse 2.37 cm [ 1.71 - 5.00 ] 2D/MM Value Range Doppler Value Range - FINDINGS: Interpretation Site: Exam was interpreted at [facility]. Left Ventricle: Normal left ventricular systolic function. No focal wall motion abnormalities. Normal left ventricular size. Ejection fraction is measured at 62 %. Global Longitudinal Strain is -15 %. Right Ventricle: Normal right ventricular size. Normal right ventricular systolic function. Left Atrium: The left atrium is normal in size. Right Atrium: The right atrium is normal in size. Atrial Septum: Normal atrial septum. Mitral Valve: Normal appearance of the mitral valve. Aortic Valve: Normal appearance of the aortic valve. No evidence of hemodynamically significant aortic stenosis by Doppler. No aortic regurgitation. Tricuspid Valve: Normal appearance of the tricuspid valve. Pulmonic Valve: Pulmonic valve not well visualized. No evidence of pulmonic regurgitation. Pericardium: Normal pericardium with no significant pericardial effusion. Aorta: Sinus of Valsalva 3.0 cm. IVC: Normal size and normal respiratory collapse consistent with normal right atrial pressure (<5 mmHg). CONCLUSIONS: There is normal biventricular size and systolic function. There were no significant valvular abnormalities. Electronically Signed By: Dr. Vidal Palacios 07/02/2025 12:06:28 PM CDT Procedure Note Vidal Palacios MD - 07/02/2025 [facility] [address] [facility] [address] [address] [address] [facility] [address], [place] [address] P:[phone] P:[phone] Echocardiographic Report Patient Name: USAMA LOPEZ D : 1955 Study Date: 07/02/2025 9:13:25 AM Sex: F Chemistry Technician: Emily Kim)(CT), [facility] Location: [facility] Provider: SANTIAGO ATKINS Height(Cm): 160 BSA: 2.1 Weight(Kg): 99.3 Heart Rate: 66 BP: 116 / 78 Quality: Good Order Provider: SANTIAGO ATKINS PROCEDURES: Echocardiographic Report: Transthoracic echocardiogram with complete 2D, M-Mode, and color Dopplerexamination. With Strain Analysis. INDICATIONS: R01.1 Cardiac murmur, unspecified and R07.89 Other chest pain. MEASUREMENTS: 2D/MM Value Range Doppler ValueRange EF Mod BP 62 % [ 54 - 74 ] SALLY Vmax 1.85cm2 [ 2.00 - 4.00 ] LV GLS -15.46 % AV Mean PG 9mmHg LVIDd 2D 3.78 cm [ 3.80 - 5.20 ] AV Peak Deshaun 1.99m/s [ 1.00 - 1.70 ] LVIDs 2D 2.49 cm [ 2.20 - 3.50 ] AV Peak PG 16mmHg LVPWd 2D 1.11 cm [ 0.60 - 0.90 ] AV VTI 44.08cm IVSd 2D 1.17 cm [ 0.60 - 0.90 ] LVOT Diam 2.01cm [ 1.70 - 2.10 ] AoR Diam 2D 3.05 cm [ 2.70 - 3.70 ] LVOT Peak Deshaun 1.16m/s [ 0.70 - 1.10 ] LA Volume 32.87 ml [ 22.00 - 52.00 ] LVOT VTI 27.18cm LA Volume Index 16 cc/m2 [ 16 - 28 ] MV E Peak Deshaun 0.68m/s [ 0.60 - 1.30 ] RA Volume 16.14 ml MV A Peak Deshaun 0.94m/s [ 1.00 - 1.20 ] MV Decel Time 220 msec [ 104 - 258 ] PV Peak Deshaun 1.03 m/s [ 0.40 - 0.80 ] RV S` 10.56 mmHg Lateral E` 0.11 m/s [ 0.10 - 0.15 ] Septal E` 0.08 m/s [ 0.08 - 0.15 ] E` 0.09 m/s E/E` 7 Tapse 2.37 cm [ 1.71 - 5.00 ] 2D/MM Value Range Doppler ValueRange - FINDINGS: Interpretation Site: Exam was interpreted at [facility]. Left Ventricle: Normal left ventricular systolic function. No focal wall motionabnormalities. Normal left ventricular size. Ejection fraction is measured at 62 %. GlobalLongitudinal Strain is -15 %. Right Ventricle: Normal right ventricular size. Normal right ventricular systolicfunction. Left Atrium: The left atrium is normal in size. Right Atrium: The right atrium is normal in size. Atrial Septum: Normal atrial septum. Mitral Valve: Normal appearance of the mitral valve. Aortic Valve: Normal appearance of the aortic valve. No evidence of hemodynamicallysignificant aortic stenosis by Doppler. No aortic regurgitation. Tricuspid Valve: Normal appearance of the tricuspid valve. Pulmonic Valve: Pulmonic valve not well visualized. No evidence of pulmonicregurgitation. Pericardium: Normal pericardium with no significant pericardial effusion. Aorta: Sinus of Valsalva 3.0 cm. IVC: Normal size and normal respiratory collapse consistent with normal rightatrial pressure (<5 mmHg). CONCLUSIONS: There is normal biventricular size and systolic function. There were no significant valvular abnormalities. Electronically Signed By: Dr. Vidal Palacios 07/02/2025 12:06:28 PM CDT Santiago Atkins MD CV ECHO PROCEDURES F inal Result documented in this encounter Visit Diagnoses Diagnosis Cardiac murmur Undiagnosed cardiac murmurs Other chest pain documented in this encounter Care Teams Nursing Scheduler Relationship Specialty Start Date End Date Aniyah Bella DO PCP - General Family Medicine 03/06/24 documented as of this encounter
--- NOTE | ~2025-07-03 | MMUS_ITS ---
EXAMINATION: MM diagnostic kaylee LT w haley, US breast LT limited INDICATION: 69-year old female; BI-RADS 0, left breast masses COMPARISON: 06/06/2025 TECHNIQUE: Digital breast tomosynthesis True lateral and spot compression CC and MLO views of the LEFT breast were obtained with computer-aided detection to assist in interpretation of the study. MAMMOGRAM FINDINGS: There are scattered areas of fibroglandular density. 2 adjacent dominant masses with circumscribed margins persists in the upper central location. Ultrasound was performed for further evaluation. LEFT BREAST ULTRASOUND FINDINGS: Targeted evaluation of the area of concern was completed. At 12:00, 3 cm from the nipple, there are 2 adjacent anechoic transcribed masses that measure 1.01 x 1.0 x 0.7 cm and 1.2 x 1.2 x 0.8 cm respectively. These simple cysts correlate to the mammographic findings. Additional smaller cysts that measure 0.5 cm in width and a 1 cm simple cyst are seen at 3:00, 5 cm from the nipple. IMPRESSION: Multiple Benign LEFT breast cysts correlates to mammographic finding. No further investigation necessary. RECOMMENDATION: Annual screening bilateral mammography in 12 months BI-RADS 2, BENIGN Reviewed, dictated and finalized at location B. IMPRESSION: Multiple Benign LEFT breast cysts correlates to mammographic finding. No furthe r investigation necessary. RECOMMENDATION: Annual screening bilateral mammography in 12 months BI-RADS 2, BENIGN
--- OUTSIDE RECORDS SUMMARY | 2025-07-03 11:43 | XMS_ITS | Clinical Summary ---
Author Organization [facility] Address [address] [place] [address] Care Team Providers Care Laborer Golf Course Name Role Phone Aniyah Bella DO Primary Care Provider +1- [phone] Allergies Active Allergy Reactions Criticality Noted Date [...] etaminophen (NORCO) 5-325 mg per tablet 03/03/20 Active mesalamine (LIALDA) 1.2 gram EC tablet Take 4 tablets (4.8 g total) by mouth daily Active montelukast (SINGULAIR) 10 mg tablet Take 1 tablet (10 mg total) by mouth daily Active pravastatin (PRAVACHOL) 20 mg tablet Take 1 tablet (20 mg total) by mouth nightly Active vitamin G64-rygjf acid 0.5-1 mg tablet Take by mouth [...] Encounters Date Type Department Care Team Description 07/02/2025 9:15 AM CDT Ancillary Procedure [facility] Medical [facility] Cardiology [address] [facility] [address] [place] [address] Cardiac murmur; Other chest pain 07/01/2025 1:30 PM CDT Office Visit [facility] Medical [facility] Cardiology [address] [place] [address] Santiago Atkins MD Chest pain, unspecified type (Primary [...] Completed 09/05/2023 Medical Devices Implanted Type Area Bloom Conveyor Operator Device Identifier Shelf Expiration Date Model / Serial / Lot Synthes Head Radial Elbow 6.5x22mm 10+3mm Head Height 09.405.263s - [id number] Implanted:Qty: 1 on 03/13/2024 by Jung Christy MD at [facility] Left: Elbow Synthes I [id number] 05/09/2026 09.405.263 S / / [id number] [employer] Suturetak Tigerwire 3mm 14.5mm 2 [place] Suture Fiberwire [id number] - [id number] Implanted:Qty: 1 on 03/13/2024 by Jung Christy MD at [facility] Left: Elbow [employer] [id number] 01/07/2027 AR-[id number] -2 / / [id number] [employer] Suturetak Tigerwire 3mm 14.5mm 2 [place] Suture Fiberwire [id number] - [id number] Implanted:Qty: 1 on 03/13/2024 by Jung Christy MD at [facility] Left: Elbow [employer] [id number] 05/09/2027 AR-1934BCF -2 / / [id number] Procedures Procedure Name Priority Date/Time Associated Diagnosis Comments TRANSTHORACIC ECHO (TTE) COMPLETE W DOPPLER/CF WO CONTRAST Routine 07/02/2025 10:11 AM CDT Cardiac murmur Other chest pain POCT LIPID PANEL Routine 07/01/2025 1:35 PM CDT Mixed hyperlipidemia ECG 12-LEAD Routine 07/01/2025 Chest pain, unspecified type from Last 3 Months Results * TRANSTHORACIC ECHO (TTE) COMPLETE W DOPPLER/CF WO CONTRAST (07/02/2025 10:11 AM CDT) EF Mod BP 62 % CONS SCIMAGE Anatomical Region Laterality Modality Ultrasound 07/02/2025 9:13 AM CDT Narrative 07/02/2025 12:07 PM CDT [facility] Cardiology [address], [place] [address] [address] [facility] [address], [place] [address] P:[phone] P:[phone] Echocardiographic Report Patient Name: AIDE LOPEZ D : 1955 Study Date: 07/02/2025 9:13:25 AM Sex: F Pastrycook'S Assistant: Emily Woodard (Rickey)(CT), RD Location: [facility] Provider: SANTIAGO ATKINS Height(Cm): 160 BSA: 2.1 [...] FINDINGS: Interpretation Site: Exam was interpreted at [facility]. Left Ventricle: Normal left ventricular systolic function. [...] Procedure Note Vidal Palacios MD - 07/02/2025 [facility] Cardiology [address] [facility] [address], [place] [address] [address] [facility] [address], [place] [address] P:[phone] P:[phone] Echocardiographic Report Patient Name: AIDE LOPEZ D : 1955 Study Date: 07/02/2025 9:13:25 AM Sex: F Pastrycook'S Assistant: Emily Woodard (Rickey)(CT), RDCS Location: [facility] Provider: SANTIAGO ATKINS Height(Cm): 160 BSA: 2.1 [...] FINDINGS: Interpretation Site: Exam was interpreted at [facility]. Left Ventricle: Normal left ventricular systolic function. [...] Dr. Vidal Palacios 07/02/2025 12:06:28 PM CDT us Santiago Atkins MD CV ECHO PROCEDURES F inal Result * POCT lipid panel (07/01/2025 1:35 PM CDT) Cholesterol, POC 162 <200 MG/DL HDL, POC 45 >=40 mg/dL Triglycerides, POC 78 <=149 mg/dL LDL Cholesterol POC 101 <=129 mg/dL Chol/HDL Ratio, POC 2.2 NONE Non-HDL Cholesterol, POC 117 NONE mg/dL Cholesterol Total, POC 162 30 - 199 mg/dL Capillary blood 07/01/2025 1 :35 PM CDT us Santiago Atkins MD POINT OF CARE TEST O RDERABLES Final Result * ECG 12 lead (07/01/2025) 07/01/2025 Santiago Atkins MD ECG ORDERABLES Esperanza l Result from Last 3 Months Insurance [facility] Care Teams Laborer Golf Course Relationship Specialty Start Date End Date Aniyah Bella DO PCP - General Family Medicine 03/06/24
--- OUTSIDE RECORDS SUMMARY | 2025-07-03 11:43 | XMS_ITS | Patient Health Record ---
Author Organization [facility] ([address]) Address [address] [place] [address] Care Team Providers Care Shower Maid Name Role Phone Jena Aniyah Primary Care Provider Justina Morel Unavailable [phone] Allergies No Known Allergies Reason For Referral [...] review and pick correct strength-formulatio n from iMusician options. If intended option is not shown, discontinue and re-order from Quick Search* Active ALBUTEROL (EQV-PROAIR HFA) 90 MCG/INH INSTILL 2 PUFFS BY MOUTH EVERY 6 HOURS NEEDED; Duration: 25 *Please review for potential replacement for e-prescription and drug interaction check* Active Aspirin 81 MG 1 TAB(S) ORALLY ONCE A DAY *Please review and pick correct strength-formulatio n from iMusician options. If intended option is not shown, [...] Status Risk Notes Problem Chronic allergic conjunctivitis (14718136) Other chronic allergic conjunctivitis (H10.45) Active confirmed Problem Allergic rhinitis caused by pollen (disorder) (97698879) Allergic rhinitis due to pollen (J30.1) Active confirmed Problem Allergic rhinitis (46516644) Other allergic rhinitis (J30.89) Active confirmed Problem Chronic sinusitis (91322566) Chronic sinusitis, unspecified (J32.9) Active confirmed Problem Dysphonia (disorder) (94736426) Other voice and resonance disorders (R49.8) Active confirmed Problem Allergic rhinitis caused by pollen (disorder) (61833622) Allergic rhinitis due to pollen (J30.1) Active confirmed Problem Allergic rhinitis caused by animal hair and dander (792401903812205) Allergic rhinitis due to animal (cat) (dog) hair and dander (J30.81) Active confirmed Problem Allergic rhinitis (00181906) Other allergic rhinitis (J30.89) Active confirmed Problem Uncomplicated severe persistent asthma (294936768) Severe persistent asthma, uncomplicated (J45.50) Active confirmed Problem Chronic allergic conjunctivitis (00459580) Other chronic allergic conjunctivitis (H10.45) Active confirmed Plan Of Treatment No Information Insurance Providers Payer Name Payer Address Payer Phone Subscriber Number Group Number Insured Name Patient Relationship to Insured Coverage Start Date Coverage End Date [employer] [address] [address] [place] [address] [id number] 1 Aide Lopez Self - patient is [...]
== END 2025-07-03 10:51 | disposition home or self-care (01) ==
LOC: ANHFOHIMG 10:50
PROVIDERS: PCP Family Medicine; Visit Provider Family Medicine
DX: N63.42 Unspecified lump in left breast, subareolar (principal)
CPT/HCPCS: 76642; 77061; 77065; G0279

== ENCOUNTER 2025-09-24 13:55 | Outpatient (CLI) | payer OTHER, SELFPAY ==
[2025-09-24 15:21] LABS: Toxigenic C. Diff NEGATIVE (NEGATIVE)
--- OUTSIDE RECORDS SUMMARY | 2025-09-24 16:13 | XMS_ITS | Patient Health Record ---
Author Organization [facility] ([address]) Address [address] [place] [address] Care Team Providers Care Acetylene Operator Name Role Phone Aniyah Bella Primary Care Provider Justina Morel Unavailable [phone] Allergies No Known Allergies Reason For Referral [...] review and pick correct strength-formulatio n from TagMan options. If intended option is not shown, discontinue and re-order from Quick Search* Active ALBUTEROL (EQV-PROAIR HFA) 90 MCG/INH INSTILL 2 PUFFS BY MOUTH EVERY 6 HOURS NEEDED; Duration: 25 *Please review for potential replacement for e-prescription and drug interaction check* Active Aspirin 81 MG 1 TAB(S) ORALLY ONCE A DAY *Please review and pick correct strength-formulatio n from TagMan options. If intended option is not shown, [...] Status Risk Notes Problem Chronic allergic conjunctivitis (65427097) Other chronic allergic conjunctivitis (H10.45) Active confirmed Problem Allergic rhinitis caused by pollen (disorder) (55940975) Allergic rhinitis due to pollen (J30.1) Active confirmed Problem Allergic rhinitis (08953923) Other allergic rhinitis (J30.89) Active confirmed Problem Chronic sinusitis (66381007) Chronic sinusitis, unspecified (J32.9) Active confirmed Problem Dysphonia (disorder) (36922887) Other voice and resonance disorders (R49.8) Active confirmed Problem Allergic rhinitis caused by pollen (disorder) (05606217) Allergic rhinitis due to pollen (J30.1) Active confirmed Problem Allergic rhinitis caused by animal hair and dander (471796588170168) Allergic rhinitis due to animal (cat) (dog) hair and dander (J30.81) Active confirmed Problem Allergic rhinitis (89968169) Other allergic rhinitis (J30.89) Active confirmed Problem Uncomplicated severe persistent asthma (368693935) Severe persistent asthma, uncomplicated (J45.50) Active confirmed Problem Chronic allergic conjunctivitis (08614972) Other chronic allergic conjunctivitis (H10.45) Active confirmed Plan Of Treatment No Information Insurance Providers Payer Name Payer Address Payer Phone Subscriber Number Group Number Insured Name Patient Relationship to Insured Coverage Start Date Coverage End Date [employer] [address] [address] [place] [address] [id number] 1 Aide Lopez Self - patient is [...]
--- OUTSIDE RECORDS SUMMARY | 2025-09-24 16:14 | XMS_ITS | Clinical Summary ---
Author Organization [facility] Address [address] [place] [address] Care Team Providers Care Supervisor Capacitor Processing Name Role Phone Aniyah Bella DO Primary Care Provider [phone] Allergies Active Allergy Reactions Criticality Noted Date Comments Codeine Other (See comments),Nausea & Vomiting High 03/07/2024 codeine Nsaids (Non-Steroidal Anti-Inflammatory Drug) Other (See comments),Stomach upset High 03/08/2024 ? has colitis Medications aspirin 81 mg enteric coated tablet Take 1 tablet (81 mg total) by mouth daily Instructed to hold 3 days prior to surgery Active fluticasone furoate-vilante roL (BREO ELLIPTA) 200-25 mcg/dose diskus inhaler 1 puff daily Active mesalamine (LIALDA) 1.2 gram EC tablet Take 4 tablets (4.8 g total) by mouth daily Active pravastatin (PRAVACHOL) 20 mg tablet Take 1 tablet (20 mg total) by mouth nightly Active vitamin T69-dirjy acid 0.5-1 mg tablet Take by mouth Active fexofenadine (MARY) 180 mg tablet Take 1 tablet (180 mg total) by mouth daily Active omeprazole (PriLOSEC) 20 mg capsule Take 1 capsule (20 mg total) by mouth daily Active azelastine (ASTELIN) 137 mcg (0.1 %) nasal spray as needed Active budesonide EC (ENTOCORT EC) 3 mg 24 hr capsule Take 1 capsule (3 mg total) by mouth every morning 5 Active Active Problems Problem Noted Date Diagnosed Date Factor 5 Leiden mutation, heterozygous 5 Cardiac murmur 07/01/2025 Mixed hyperlipidemia 07/01/2025 Other chest pain 07/01/2025 Left elbow pain 03/07/2024 Closed displaced fracture of head of left radius 03/07/2024 Encounters Date Type Department Care Team Description 08/09/2025 Results Follow-Up [facility] Cardiology [address] [place] [address] [place] [phone] Santiago Atkins MD CTA Heart and Coronary Arteries W Morphology when Performed 08/05/2025 10:08 AM CDT - 08/05/2025 11:59 PM CDT Hospital Encounter [facility] [address] [place] [phone] Other chest pain; Cardiac murmur Discharge Disposition: Discharge to home or self care 07/29/2025 12:30 PM CDT Office Visit [facility] Cardiology [address] [place] [address] [place] [phone] Santiago Atkins MD Other chest pain (Primary Dx); Mixed hyperlipidemia; Cardiac murmur; Factor 5 Leiden mutation, heterozygous 07/04/2025 Telephone [facility] Cardiology [address] [place] [phone] Santiago Atkins MD 07/04/2025 Results Follow-Up [facility] Cardiology [address] [place] [address] [place] [phone] Santiago Atkins MD Transthoracic Echo (TTE) Complete W Doppler/CF 07/02/2025 9:15 AM CDT Ancillary Procedure [facility] Cardiology [address] [place] [address] [place] [phone] Cardiac murmur; Other chest pain 07/01/2025 1:30 PM CDT Office Visit [facility] Cardiology [address] [place] [address] [place] [phone] Santiago Atkins MD Chest pain, unspecified type [...] Sign Reading Time Taken Comments Blood Pressure 118/71 08/05/2025 10:38 AM CDT Pulse 62 08/05/2025 10:38 AM CDT Temperature 36.1 C (97 F) 03/13/2024 2:45 PM CDT Respiratory Rate 18 07/29/2025 12:14 PM CDT Oxygen Saturation 96% 07/29/2025 12:14 PM CDT Inhaled Oxygen Concentration - - Weight 98 kg (216 lb) 07/29/2025 12:14 PM CDT Height 160 cm (5' 3) 07/29/2025 12:14 PM CDT Body Mass Index 38.26 07/29/2025 12:14 PM CDT Plan of Treatment Health Maintenance [...] Completed 09/05/2023 Medical Devices Implanted Type Area Science Analyst Device Identifier Shelf Expiration Date Model / Serial / Lot Synthes Head Radial Elbow 6.5x22mm 10+3mm Head Height [id number] - [id number] Implanted:Qty: 1 on 03/13/2024 by Jung Christy MD at [facility] Left: Elbow Synthes I [id number] 05/09/2026 09.405.263 S / / [id number] [employer] Suturetak Tigerwire 3mm 14.5mm 2 Alex Suture Fiberwire [id number] - [id number] Implanted:Qty: 1 on 03/13/2024 by Jung Christy MD at [facility] Left: Elbow [employer] [id number] 01/07/2027 [id number] -2 / / [id number] [employer] Suturetak Tigerwire 3mm 14.5mm 2 Alex Suture Fiberwire [id number] - [id number] Implanted:Qty: 1 on 03/13/2024 by Jung Christy MD at [facility] Left: Elbow [employer] [id number] 05/09/2027 [id number] -2 / / [id number] Procedures Procedure Name Priority Date/Time Associated Diagnosis Comments CT HEART MORPHOLOGY AND CORONARY ARTERIES W CONTRAST Schedule Routine, Read Routine (OP Routine) 08/05/2025 11:00 AM CDT Other chest pain Cardiac murmur TRANSTHORACIC ECHO (TTE) COMPLETE W DOPPLER/CF WO CONTRAST Routine 07/02/2025 10:11 AM CDT Cardiac murmur Other chest pain POCT LIPID PANEL Routine 07/01/2025 1:35 PM CDT Mixed hyperlipidemia ECG 12-LEAD Routine 07/01/2025 Chest pain, unspecified type from Last 3 Months Results * CTA Heart and Coronary Arteries W Morphology when Performed (08/05/2025 11:00 AM CDT) Anatomical Region Laterality Modality Chest N/A Computed Tomogra phy 08/05/2025 11:4 0 AM CDT Impressions 08/05/2025 9:14 PM CDT 1. Calcium score of 14.4. 2. Mild stenosis secondary to calcified atherosclerosis of the mid left anterior descending coronary artery. 3. Multiple bilateral pulmonary nodules measuring up to 0.6 cm. Recommend follow-up CT in 1 year to evaluate for stability. Recommend follow up of the Incidental lung nodule Additional Imaging In [address] Dictated by: Doe Landa MD PHD The radiology attending physician has personally reviewed this study, and had reviewed and/or edited this written report and agrees with it. Electronically signed by: Roel López M.D. Narrative 08/05/2025 9:14 PM CDT EXAMINATION: CORONARY CT ANGIOGRAM HISTORY: Chest pain. COMPARISON: None TECHNIQUE: CT angiography of the coronary arteries was performed after the administration of 95 mL of Optiray 350. Images were also obtained precontrast for the purposes of calcium scoring. Prior to the examination, 0 mg of intravenous metoprolol and 0.8 mg of sublingual nitroglycerin were administered. The patient's heart rate and blood pressure at the time of the examination were 67 beats per minute and 118/71 mmHg. Images were transferred to a 3D workstation for additional post-processing. FINDINGS: The coronary arteries are right system dominant. There is no anomalous coronary artery origin or course. Right coronary system: No significant atherosclerosis or stenosis of the right coronary system. Left coronary system: No significant atherosclerosis or stenosis of the left main or circumflex coronary arteries. Mild (<30%) calcified atherosclerosis and stenosis of the mid left anterior descending coronary artery. The calculated calcium score is 14.4. This score places the patient between the 25-50th percentiles for an age- and gender-matched population. Other findings: 0.6 cm left lower lobe pulmonary nodule on series 4 image 59. Additional sub-6 mm pulmonary nodules are seen, for example measuring 0.4 cm in the right lower lobe on image 43. There is also old granulomatous disease. Mild degenerative changes of the spine. Procedure Note Roel López MD PhD - 08/05/2025 EXAMINATION: CORONARY CT ANGIOGRAM HISTORY: Chest pain. COMPARISON: None TECHNIQUE: CT angiography of the coronary arteries was performed after the administration of 95 mL of Optiray 350. Images were also obtained precontrast for the purposes of calcium scoring. Prior to the examination, 0 mg of intravenous metoprolol and 0.8 mg of sublingual nitroglycerin were administered. The patient's heart rate and blood pressure at the time of the examination were 67 beats per minute and 118/71 mmHg. Images were transferred to a 3D workstation for additional post-processing. FINDINGS: The coronary arteries are right system dominant. There is no anomalous coronary artery origin or course. Right coronary system: No significant atherosclerosis or stenosis of the right coronary system. Left coronary system: No significant atherosclerosis or stenosis of the left main or circumflex coronary arteries. Mild (<30%) calcified atherosclerosis and stenosis of the mid left anterior descending coronary artery. The calculated calcium score is 14.4. This score places the patient between the 25-50th percentiles for an age- and gender-matched population. Other findings: 0.6 cm left lower lobe pulmonary nodule on series 4 image 59. Additional sub-6 mm pulmonary nodules are seen, for example measuring 0.4 cm in the right lower lobe on image 43. There is also old granulomatous disease. Mild degenerative changes of the spine. IMPRESSION: 1. Calcium score of 14.4. 2. Mild stenosis secondary to calcified atherosclerosis of the mid left anterior descending coronary artery. 3. Multiple bilateral pulmonary nodules measuring up to 0.6 cm. Recommend follow-up CT in 1 year to evaluate for stability. Recommend follow up of the Incidental lung nodule Additional Imaging In [address] Dictated by: Doe Landa MD PHD The radiology attending physician has personally reviewed this study, and had reviewed and/or edited this written report and agrees with it. Electronically signed by: Roel López M.D. Santiago Atkins MD IMG CT PROCEDURES Fi nal Result * TRANSTHORACIC ECHO (TTE) COMPLETE W DOPPLER/CF WO CONTRAST (07/02/2025 10:11 AM CDT) EF Mod BP 62 % CONS SCIMAGE Anatomical Region Laterality Modality Ultrasound 07/02/2025 9:13 AM CDT Narrative 07/02/2025 12:07 PM CDT [facility] Cardiology [address] [facility] [place] [address] [address] [facility] [address] [place], [place] [address] P:[phone] P:[phone] Echocardiographic Report Patient Name: AIDE LOPEZ D : 1955 Study Date: 07/02/2025 9:13:25 AM Sex: F Paint Stockman: Emily Kim)(CT), [facility] Location: [place] Ref Provider: SANTIAGO ATKINS Height(Cm): 160 BSA: [...] FINDINGS: Interpretation Site: Exam was interpreted at [facility]. Left Ventricle: Normal left ventricular systolic function. [...] Procedure Note Vidal Palacios MD - 07/02/2025 [facility] Cardiology [address] [facility] [place] [address] [address] [facility] [address] [place], [place] [address] P:[phone] P:[phone] Echocardiographic Report Patient Name: AIDE LOPEZ D : 1955 Study Date: 07/02/2025 9:13:25 AM Sex: F Paint Stockman: Emily Kim)([place]), [facility] Location: [facility] Provider: SANTIAGO ATKINS Height(Cm): 160 BSA: [...] FINDINGS: Interpretation Site: Exam was interpreted at [facility]. Left Ventricle: Normal left ventricular systolic function. [...] * ECG 12 lead (07/01/2025) 07/01/2025 us Santiago Atkins MD ECG ORDERABLES Esperanza l Result from Last 3 Months Insurance [facility] Care Teams Supervisor Capacitor Processing Relationship Specialty Start Date End Date Aniyah Bella DO PCP - General Family Medicine 03/06/24
== END 2025-09-24 13:56 | disposition home or self-care (01) ==
PROVIDERS: PCP Family Medicine; Visit Provider Nurse Practitioner Family
DX: K51.211 Ulcerative (chronic) proctitis with rectal bleeding (principal); K92.1 Melena; K62.89 Other specified diseases of anus and rectum
CPT/HCPCS: 87045; 87046; 87427; 87493